=== PATIENT | male | born 1955 | race African-American/Black ===

== ENCOUNTER 2017-01-28 18:27 | Inpatient (IN) | payer MEDICAID ==
[~2017-01-28] VITALS: Ht 188 cm; Wt 75.7 kg
[~2017-01-28 18:27] MED LIST: ACET-2178 PO; ASPIRIN PO; DIAZ10TA4 PO; DOCU-138 PO; HYDR-523 PO; SIMV20TA6 PO
[2017-01-28] MEDS ORDERED: NITROGLYCERIN 0.4MG TABLET SL SL PRN (19:00)
[2017-01-28] MEDS ORDERED: ASPIRIN 81MG TABLET PO ONE (19:00)
[2017-01-28 19:15] LABS: BASOPHILS % 1.3 % (0.0-2.0); EOSINOPHILS % 5.6 % (0.0-5.0); HEMOGLOBIN. 7.2 g/dL (14.0-18.0); INR 2.3; LYMPHOCYTES % 17.8 % (20.0-50.0); MEAN CORPUSCULAR HEMOGLOBIN 20.9 pg (28.0-32.0); MEAN CORPUSCULAR VOLUME 69.4 fL (80.0-94.0); MEAN PLATELET VOLUME 8.9 fl (7.4-10.4); MONOCYTES % 10.1 % (2.0-8.0); NEUTROPHILS % 65.2 % (40.0-76.0); PLATELET 296 x1000/uL (130-400); PROTHROMBIN TIME 24.1 sec (9.4-11.6); RED BLOOD CELL COUNT 3.46 mill/uL (4.7-6.1); RED CELL DISTRIBUTION WIDTH 20.8 % (11.6-14.6)
[2017-01-28 19:25] LABS: CARBON DIOXIDE 23 mEq/L (21-32); CHLORIDE 106 mEq/L (98-107); TROPONIN I 0.05 ng/mL (0.00-0.04)
[2017-01-28 19:37] LABS: *AMPHETAMINES SCREEN URINE NEGATIVE (NEGATIVE); *BARBITURATES SCREEN URINE NEGATIVE (NEGATIVE); *BENZODIAZEPINES SCREEN URINE NEGATIVE (NEGATIVE); *COCAINE SCREEN URINE NEGATIVE (NEGATIVE); CANNABINOID URINE SCREEN PRESUMTIVE POSITIVE (NEGATIVE); METHADONE URINE SCREEN NEGATIVE (NEGATIVE); OPIATES URINE SCREEN NEGATIVE (NEGATIVE); PHENCYCLIDINE URINE SCREEN NEGATIVE (NEGATIVE)
[2017-01-28] MEDS ORDERED: MORPHINE SULFATE 4 MG/ML CPJ (NOT FOR IM USE) IV ONE (20:00)
[2017-01-28 20:08] LABS: PLATELET ESTIMATE NORMAL
[2017-01-28 23:35] VITALS: BP 130/76
[2017-01-29] VITALS (11 sets, daily range): BP systolic 103–139; BP diastolic 58–89
[2017-01-29] MEDS ORDERED: HYDROCODONE/ACETAMINOPHEN 5/325MG TABLET PO PRN (00:30)
[2017-01-29] MEDS: TEMAZEPAM 15MG CAPSULE PO PRN ×2 (00:38→21:19)
[2017-01-29 06:33] LABS: HEMATOCRIT. 26.1 % (42.0-52.0); HEMOGLOBIN. 7.9 g/dL (14.0-18.0); MEAN CORPUSCULAR HEMOGLOBIN 21.4 pg (28.0-32.0); MEAN CORPUSCULAR VOLUME 70.4 fL (80.0-94.0); MEAN PLATELET VOLUME 9.4 fl (7.4-10.4); PLATELET 264 x1000/uL (130-400); RED BLOOD CELL COUNT 3.71 mill/uL (4.7-6.1); RED CELL DISTRIBUTION WIDTH 20.6 % (11.6-14.6)
[2017-01-29] MEDS: PANTOPRAZOLE 40MG DR TABLET PO SCH (06:40)
[2017-01-29 07:45] LABS: CARBON DIOXIDE 24 mEq/L (21-32); CHLORIDE 103 mEq/L (98-107); HDL CHOLESTEROL 52 mg/dL (40-59); LDL CHOLESTEROL 115 mg/dL (5-100)
[2017-01-29 07:48] LABS: TOTAL IRON BINDING CAPACITY 415 ug/dL (250-450)
[2017-01-29 08:17] LABS: VITAMIN B12 SERUM 497 pg/mL (211-911)
[2017-01-29] MEDS: PHYTONADIONE 10MG/ML AMP SUBCUT SCH (09:39)
[2017-01-29] MEDS ORDERED: POTASSIUM CHLORIDE 20MEQ/PACKET PO NR (12:15)
[2017-01-29 16:32] LABS: PLATELET ESTIMATE NORMAL
[2017-01-29] MEDS ORDERED: DIPHENHYDRAMINE 50MG/ML VIAL IV PRN (21:00)
[2017-01-30] VITALS: BP 115/65
[2017-01-30] MEDS ORDERED: ATORVASTATIN CALCIUM 20MG TABLET PO SCH (00:30)
[2017-01-30 06:54] VITALS: BP 118/73
[2017-01-30 08:00] VITALS: BP 110/71
[2017-01-30 08:23] LABS: HEMATOCRIT. 28.6 % (42.0-52.0); HEMOGLOBIN. 8.7 g/dL (14.0-18.0); MEAN CORPUSCULAR HEMOGLOBIN 21.4 pg (28.0-32.0); MEAN CORPUSCULAR VOLUME 70.2 fL (80.0-94.0); MEAN PLATELET VOLUME 9.3 fl (7.4-10.4); PLATELET 269 x1000/uL (130-400); RED BLOOD CELL COUNT 4.08 mill/uL (4.7-6.1); RED CELL DISTRIBUTION WIDTH 20.8 % (11.6-14.6)
[2017-01-30] MEDS: PANTOPRAZOLE 40MG DR TABLET PO SCH (09:41)
[2017-01-30] MEDS: PHYTONADIONE 10MG/ML AMP SUBCUT SCH (09:41)
[2017-01-30 12:00] VITALS: BP 126/87
[2017-01-30 16:00] VITALS: BP 159/96
[2017-01-30 17:17] VITALS: BP 150/90
[2017-01-31 00:25] LABS: PLATELET ESTIMATE NORMAL
[2017-01-31] MEDS ORDERED: FAMOTIDINE 20MG TABLET PO SCH (07:40)
[2017-02-22] MEDS ORDERED: HYDR-4133 PO (22:31)
[2017-02-22] MEDS ORDERED: AMLO2.5T45 PO (22:31)
[2017-02-22] MEDS ORDERED: FURO40TA5 PO (22:31)
[2017-02-22] MEDS ORDERED: ASPI-1159 PO (22:32)
== END 2017-01-30 18:00 | disposition home or self-care (01) | DRG 469 ==
LOC: ER 18:27 → 7WST 20:04 → ENRESERV 22:04
PROVIDERS: ADMIT Internal Medicine; ATTEND Internal Medicine
PROC: 30233N1 Transfusion of Nonautologous Red Blood Cells into Peripheral Vein, Percutaneous Approach (ICD-10-PCS; principal; 2017-01-29)
DX: N17.9 Acute kidney failure, unspecified (principal); D68.9 Coagulation defect, unspecified; I24.9 Acute ischemic heart disease, unspecified; I42.9 Cardiomyopathy, unspecified; I50.9 Heart failure, unspecified; I13.0 Hypertensive heart and chronic kidney disease with heart failure and stage 1 through stage 4 chronic kidney disease, or unspecified chronic kidney disease; D64.9 Anemia, unspecified; F17.200 Nicotine dependence, unspecified, uncomplicated; N18.9 Chronic kidney disease, unspecified; Z95.810 Presence of automatic (implantable) cardiac defibrillator; M94.0 Chondrocostal junction syndrome [Tietze]
CPT/HCPCS: 36415; 71010; 80048; 80053; 80061; 80305; 82270; 82607; 83540; 83550; 83880; 84443; 84484; 85025; 85610; 86850; 86900; 86920; 93005; 96374; 99285; J1200; J2270; J3430; J7030; J7050; P9016

== ENCOUNTER 2017-05-02 01:35 | Emergency (ER) | payer MEDICAID ==
[~2017-05-02] VITALS: Ht 188 cm; Wt 82.0 kg
[~2017-05-02 01:35] MED LIST changes: +AMLO2.5T45 PO; -ASPIRIN PO; +FURO40TA5 PO; +HYDR-4133 PO; -HYDR-523 PO
[2017-05-02] MEDS ORDERED: TRAMADOL 50MG TABLET PO ONE (02:45)
[2017-05-02] MEDS ORDERED: IBUPROFEN 600MG TABLET PO ONE (02:45)
[2017-05-02 02:59] LABS: BASOPHILS % 1.8 % (0.0-2.0); EOSINOPHILS % 4.3 % (0.0-5.0); HEMATOCRIT. 25.3 % (42.0-52.0); HEMOGLOBIN. 7.6 g/dL (14.0-18.0); LYMPHOCYTES % 22.6 % (20.0-50.0); MEAN CORPUSCULAR VOLUME 66.5 fL (80.0-94.0); MEAN PLATELET VOLUME 8.3 fl (7.4-10.4); MONOCYTES % 11.6 % (2.0-8.0); NEUTROPHILS % 59.7 % (40.0-76.0); PLATELET 343 x1000/uL (130-400); RED BLOOD CELL COUNT 3.81 mill/uL (4.7-6.1)
[2017-05-02 03:05] LABS: INR 1.1; PARTIAL THROMBOPLASTIN TIME 28.7 sec (23.4-31.0); PROTHROMBIN TIME 11.1 sec (9.4-11.6)
[2017-05-02 03:11] LABS: CARBON DIOXIDE 28 mEq/L (21-32); CHLORIDE 107 mEq/L (98-107); TROPONIN I 0.05 ng/mL (0.00-0.04)
[2017-05-02 03:46] LABS: PLATELET ESTIMATE NORMAL
[2017-05-02 08:12] VITALS: BP 128/67
== END 2017-05-02 08:33 | disposition home or self-care (01) ==
LOC: ER 01:35
DX: R07.89 Other chest pain (principal); F41.9 Anxiety disorder, unspecified; I11.0 Hypertensive heart disease with heart failure; I50.9 Heart failure, unspecified; I42.9 Cardiomyopathy, unspecified; I25.2 Old myocardial infarction; I48.91 Unspecified atrial fibrillation; E78.5 Hyperlipidemia, unspecified; Z95.0 Presence of cardiac pacemaker
CPT/HCPCS: 36415; 71045; 80053; 83690; 84484; 85025; 85610; 85730; 93005; 99285; Z7610

== ENCOUNTER 2017-05-23 08:47 | Emergency (ER) | payer MEDICAID ==
[~2017-05-23] VITALS: Ht 188 cm; Wt 79.0 kg
[2017-05-23 09:42] LABS: BASOPHILS % 1.4 % (0.0-2.0); EOSINOPHILS % 4.8 % (0.0-5.0); HEMATOCRIT. 31.2 % (42.0-52.0); HEMOGLOBIN. 9.4 g/dL (14.0-18.0); LYMPHOCYTES % 19.4 % (20.0-50.0); MEAN CORPUSCULAR HEMOGLOBIN 21.1 pg (28.0-32.0); MEAN CORPUSCULAR VOLUME 70.3 fL (80.0-94.0); MEAN PLATELET VOLUME 9.3 fl (7.4-10.4); MONOCYTES % 10.3 % (2.0-8.0); NEUTROPHILS % 64.1 % (40.0-76.0); PLATELET 190 x1000/uL (130-400); RED BLOOD CELL COUNT 4.44 mill/uL (4.7-6.1); RED CELL DISTRIBUTION WIDTH 22.5 % (11.6-14.6)
[2017-05-23] MEDS: MORPHINE SULFATE 4 MG/ML CPJ (NOT FOR IM USE) IV STA (09:44)
[2017-05-23] MEDS: SODIUM CHLORIDE 0.9% 500 ML IV ONE (09:45)
[2017-05-23 09:47] LABS: INR 1.1; PROTHROMBIN TIME 11.4 sec (9.4-11.6)
[2017-05-23 09:59] LABS: CARBON DIOXIDE 25 mEq/L (21-32); CHLORIDE 109 mEq/L (98-107); TROPONIN I 0.04 ng/mL (0.00-0.04)
[2017-05-23 10:03] LABS: PLATELET ESTIMATE NORMAL
[2017-05-23] MEDS: SODIUM CHLORIDE 0.9% 1,000 ML IV ONE (11:02)
[2017-05-23] MEDS: ONDANSETRON HCL 4MG/2ML VIAL IV ONE (11:02)
[2017-05-23 11:26] LABS: CLARITY URINE CLEAR (CLEAR); COLOR URINE YELLOW (YELLOW); KETONES URINE NEGATIVE (NEGATIVE); LEUKOCYTE ESTERASE URINE NEGATIVE (NEGATIVE); NITRITE URINE NEGATIVE (NEGATIVE); OCCULT BLOOD URINE NEGATIVE (NEGATIVE); PROTEIN URINE TRACE (NEGATIVE); SPECIFIC GRAVITY URINE 1.024 (1.005-1.030); UROBILINOGEN URINE 0.2 E.U./dL (0.2-1.0)
[2017-05-23 13:18] VITALS: BP 144/91
== END 2017-05-23 13:37 | disposition home or self-care (01) ==
LOC: ER 09:15 → CANBEDREQ 16:13
DX: R42 Dizziness and giddiness (principal); R11.2 Nausea with vomiting, unspecified; F41.9 Anxiety disorder, unspecified; I10 Essential (primary) hypertension; I25.2 Old myocardial infarction; F12.10 Cannabis abuse, uncomplicated
CPT/HCPCS: 36415; 70450; 71045; 80053; 81001; 83690; 84484; 85025; 85610; 87804; 93005; 96361; 96374; 96375; 99285; J2270; J2405; J7030; Z7610

== ENCOUNTER 2018-05-15 17:05 | Inpatient (IN) | payer MEDICAID ==
[~2018-05-15] VITALS: Ht 198.1 cm; Wt 74.8 kg
[~2018-05-15 17:05] MED LIST changes: -AMLO2.5T45 PO; +AMLO5TAB4 MT; -DIAZ10TA4 PO; -DOCU-138 PO; -HYDR-4133 PO; +LOSA25TA3 MT; +NITR0.4T49 SL
[2018-05-15 19:22] LABS: CLARITY URINE CLEAR (CLEAR); COLOR URINE YELLOW (YELLOW); KETONES URINE 1+ (NEGATIVE); LEUKOCYTE ESTERASE URINE 1+ (NEGATIVE); NITRITE URINE NEGATIVE (NEGATIVE); OCCULT BLOOD URINE NEGATIVE (NEGATIVE); PH URINE 5.5 (4.5-8.0); PROTEIN URINE 1+ (NEGATIVE); SPECIFIC GRAVITY URINE 1.036 (1.005-1.030)
[2018-05-15 19:24] LABS: CHLORIDE 110 mEq/L (98-107)
[2018-05-15 19:26] LABS: INR 1.1; PARTIAL THROMBOPLASTIN TIME 27.2 sec (23.4-31.0); PROTHROMBIN TIME 10.7 sec (9.1-11.1)
[2018-05-15 19:30] LABS: ETHANOL BLOOD < 10 mg/dL
[2018-05-15] MEDS ORDERED: IPRATROPIUM/ALBUTEROL 0.5-3(2.5)MG/3ML NEB INH PRN (19:30)
[2018-05-15] MEDS ORDERED: GUAIFENESIN 200MG/10ML SUGAR FREE UDC PO PRN (19:30)
[2018-05-15] MEDS ORDERED: LORAZEPAM 0.5MG TABLET PO PRN (19:30)
[2018-05-15] MEDS ORDERED: CLONIDINE 0.1MG TABLET PO PRN (19:30)
[2018-05-15] MEDS ORDERED: ONDANSETRON HCL 4MG/2ML INJ IV PRN (19:30)
[2018-05-15] MEDS ORDERED: NA PHOS,M-B/NA PHOS,DI-BA ENEMA 118ML PR PRN (19:30)
[2018-05-15] MEDS ORDERED: ACETAMINOPHEN 325MG TABLET PO PRN (19:30)
[2018-05-15] MEDS ORDERED: DIPHENHYDRAMINE 50MG/ML VIAL IV PRN (19:30)
[2018-05-15] MEDS ORDERED: DOCUSATE SODIUM 100MG CAPSULE PO PRN (19:30)
[2018-05-15] MEDS ORDERED: MAGNESIUM/ALUMINUM HYDROXIDE/SIMETHICONE 30ML UDC PO PRN (19:30)
[2018-05-15] MEDS ORDERED: ACETAMINOPHEN 650MG SUPP PR PRN (19:30)
[2018-05-15] MEDS ORDERED: MEDICATION NOT ON FORMULARY EA (Amlodipine Besylate (Norvasc) 1 TAB) MT SCH (19:30)
[2018-05-15] MEDS ORDERED: NITROGLYCERIN 0.4MG TABLET SL SL PRN (19:30)
[2018-05-15 19:31] LABS: *AMPHETAMINES SCREEN URINE NEGATIVE (NEGATIVE); *BARBITURATES SCREEN URINE NEGATIVE (NEGATIVE); *BENZODIAZEPINES SCREEN URINE NEGATIVE (NEGATIVE); *COCAINE SCREEN URINE NEGATIVE (NEGATIVE)
[2018-05-15 19:32] LABS: CANNABINOID URINE SCREEN PRESUMTIVE POSITIVE (NEGATIVE); METHADONE URINE SCREEN NEGATIVE (NEGATIVE); OPIATES URINE SCREEN NEGATIVE (NEGATIVE); PHENCYCLIDINE URINE SCREEN NEGATIVE (NEGATIVE)
[2018-05-15 19:33] LABS: HEMATOCRIT. 35.1 % (42.0-52.0); HEMOGLOBIN. 10.9 g/dL (14.0-18.0); MEAN CORPUSCULAR HEMOGLOBIN 25.2 pg (28.0-32.0); MEAN CORPUSCULAR VOLUME 80.8 fL (80.0-94.0); MEAN PLATELET VOLUME 10.2 fl (7.4-10.4); PLATELET 194 x1000/uL (130-400); RED BLOOD CELL COUNT 4.34 mill/uL (4.7-6.1); RED CELL DISTRIBUTION WIDTH 18.4 % (11.6-14.6); T4 FREE 1.31 ng/dL (0.76-1.46)
[2018-05-15] MEDS ORDERED: FUROSEMIDE 20MG/2ML VIAL IVP ONE (20:00)
[2018-05-15 20:14] LABS: PLATELET ESTIMATE NORMAL
[2018-05-15] MEDS ORDERED: MEDICATION NOT ON FORMULARY EA (Simvastatin 20 MG) PO SCH (21:00)
[2018-05-15 21:30] VITALS: BP 155/95
[2018-05-15] MEDS: CARVEDILOL 3.125 MG TABLET PO SCH (21:38)
[2018-05-15] MEDS: HYDROCODONE/ACETAMINOPHEN 5/325MG TABLET PO PRN (23:08)
[2018-05-16] VITALS: BP 126/92
[2018-05-16 04:00] VITALS: BP 149/98
[2018-05-16 06:40] LABS: HEMATOCRIT. 34.7 % (42.0-52.0); HEMOGLOBIN. 10.9 g/dL (14.0-18.0); MEAN CORPUSCULAR VOLUME 79.6 fL (80.0-94.0); MEAN PLATELET VOLUME 10.3 fl (7.4-10.4); PLATELET 190 x1000/uL (130-400); RED BLOOD CELL COUNT 4.36 mill/uL (4.7-6.1); RED CELL DISTRIBUTION WIDTH 18.2 % (11.6-14.6)
[2018-05-16 07:48] LABS: T4 FREE 1.4 ng/dL (0.76-1.46)
[2018-05-16 07:50] LABS: CREATINE KINASE MB FRACTION 4.7 ng/mL (0.5-3.6)
[2018-05-16 08:00] VITALS: BP 156/103
[2018-05-16] MEDS ORDERED: ENOXAPARIN 40MG/0.4ML SYR SUBCUT SCH (09:00)
[2018-05-16] MEDS: CARVEDILOL 3.125 MG TABLET PO SCH ×2 (09:00→09:03)
[2018-05-16] MEDS ORDERED: AMLODIPINE 5MG TABLET PO SCH (09:00)
[2018-05-16] MEDS: ASPIRIN 81MG EC TABLET PO SCH (09:02)
[2018-05-16] MEDS: HYDROCODONE/ACETAMINOPHEN 5/325MG TABLET PO PRN (10:49)
[2018-05-16] MEDS ORDERED: CLONIDINE 0.2MG TABLET PO PRN (11:00)
[2018-05-16] MEDS ORDERED: CLONIDINE 0.1MG TABLET PO PRN (11:00)
[2018-05-16 12:00] VITALS: BP 144/99
[2018-05-16] MEDS: LOSARTAN POTASSIUM 25 MG TABLET PO SCH ×2 (12:10→20:50)
[2018-05-16] MEDS ORDERED: MORPHINE SULFATE 4 MG/ML CPJ (NOT FOR IM USE) IV NR (13:15)
[2018-05-16 16:00] VITALS: BP 137/96
[2018-05-16] MEDS: ENOXAPARIN 80MG/0.8ML SYR SUBCUT SCH (18:03)
[2018-05-16 19:10] LABS: PLATELET ESTIMATE NORMAL
[2018-05-16 20:00] VITALS: BP 139/92
[2018-05-16] MEDS: ATORVASTATIN CALCIUM 10MG TABLET PO SCH (20:50)
[2018-05-16] MEDS: AMLODIPINE 5MG TABLET PO SCH (20:50)
[2018-05-16] MEDS: CARVEDILOL 6.25 MG TABLET PO SCH (20:51)
[2018-05-16] MEDS: LORAZEPAM 0.5MG TABLET PO PRN (23:30)
[2018-05-17] VITALS: BP 104/84
[2018-05-17 04:30] VITALS: BP 138/90
[2018-05-17] MEDS: ENOXAPARIN 80MG/0.8ML SYR SUBCUT SCH ×2 (06:11→18:10)
[2018-05-17 07:23] LABS: HEMATOCRIT. 36.2 % (42.0-52.0); HEMOGLOBIN. 11.1 g/dL (14.0-18.0); MEAN CORPUSCULAR HEMOGLOBIN 24.7 pg (28.0-32.0); MEAN CORPUSCULAR VOLUME 80.3 fL (80.0-94.0); MEAN PLATELET VOLUME 10.2 fl (7.4-10.4); PLATELET 195 x1000/uL (130-400); RED CELL DISTRIBUTION WIDTH 17.9 % (11.6-14.6)
[2018-05-17 08:00] VITALS: BP 131/104
[2018-05-17 08:00] LABS: CHLORIDE 108 mEq/L (98-107)
[2018-05-17] MEDS: CARVEDILOL 6.25 MG TABLET PO SCH ×2 (08:14→21:08)
[2018-05-17] MEDS: LOSARTAN POTASSIUM 25 MG TABLET PO SCH ×2 (09:05→21:08)
[2018-05-17] MEDS: ASPIRIN 81MG EC TABLET PO SCH (09:06)
[2018-05-17] MEDS: AMLODIPINE 5MG TABLET PO SCH ×2 (09:06→21:07)
[2018-05-17 10:50] LABS: PLATELET ESTIMATE NORMAL
[2018-05-17] MEDS: POTASSIUM CHLORIDE 20MEQ TABLET SR PO SCH ×2 (10:57→18:10)
[2018-05-17] MEDS: FUROSEMIDE 40MG/4ML VIAL IVP SCH ×2 (10:57→18:10)
[2018-05-17 12:00] VITALS: BP 124/100
[2018-05-17] MEDS ORDERED: MORPHINE SULFATE 4 MG/ML CPJ (NOT FOR IM USE) IV NR (14:15)
[2018-05-17 16:00] VITALS: BP 141/97
[2018-05-17 20:00] VITALS: BP_SYST 119; BP_SYST 146; BP_DIAS 94; BP_DIAS 96
[2018-05-17] MEDS: ATORVASTATIN CALCIUM 10MG TABLET PO SCH (21:08)
[2018-05-18] VITALS: BP 124/74
[2018-05-18] MEDS: LORAZEPAM 0.5MG TABLET PO PRN (00:02)
[2018-05-18 04:00] VITALS: BP 108/75
[2018-05-18] MEDS: ENOXAPARIN 80MG/0.8ML SYR SUBCUT SCH ×2 (06:06→18:01)
[2018-05-18] MEDS: FUROSEMIDE 40MG/4ML VIAL IVP SCH (06:06)
[2018-05-18 06:56] LABS: HEMATOCRIT. 38.2 % (42.0-52.0); MEAN CORPUSCULAR VOLUME 79.5 fL (80.0-94.0); MEAN PLATELET VOLUME 10.3 fl (7.4-10.4); PLATELET 216 x1000/uL (130-400); RED BLOOD CELL COUNT 4.81 mill/uL (4.7-6.1); RED CELL DISTRIBUTION WIDTH 17.7 % (11.6-14.6)
[2018-05-18 08:00] VITALS: BP 148/89
[2018-05-18] MEDS: AMLODIPINE 5MG TABLET PO SCH ×2 (08:30→21:09)
[2018-05-18] MEDS: ASPIRIN 81MG EC TABLET PO SCH (08:30)
[2018-05-18] MEDS: LOSARTAN POTASSIUM 25 MG TABLET PO SCH ×2 (08:30→21:00)
[2018-05-18] MEDS: CARVEDILOL 6.25 MG TABLET PO SCH (08:30)
[2018-05-18] MEDS: POTASSIUM CHLORIDE 20MEQ TABLET SR PO SCH ×2 (08:31→18:01)
[2018-05-18 10:00] LABS: PLATELET ESTIMATE NORMAL
[2018-05-18 12:00] VITALS: BP 75/54
[2018-05-18 16:21] VITALS: BP 122/59
[2018-05-18] MEDS ORDERED: HYDRALAZINE 20MG/ML VIAL IV PRN (16:30)
[2018-05-18] MEDS ORDERED: FUROSEMIDE 100MG/10ML VIAL IVP SCH (17:15)
[2018-05-18] MEDS: HYDROCODONE/ACETAMINOPHEN 10/325MG TABLET PO PRN (18:02)
[2018-05-18 20:00] VITALS: BP_SYST 123; BP_SYST 131; BP_SYST 146; BP_DIAS 103; BP_DIAS 104; BP_DIAS 98
[2018-05-18] MEDS ORDERED: CARVEDILOL 3.125 MG TABLET PO SCH (21:00)
[2018-05-18] MEDS: ATORVASTATIN CALCIUM 10MG TABLET PO SCH (21:08)
[2018-05-19] VITALS: BP 128/99
[2018-05-19 04:00] VITALS: BP_SYST 115; BP_SYST 130; BP_SYST 140; BP_DIAS 100; BP_DIAS 85; BP_DIAS 90
[2018-05-19] MEDS: ENOXAPARIN 80MG/0.8ML SYR SUBCUT SCH (06:20)
[2018-05-19 07:10] LABS: HEMATOCRIT. 37.9 % (42.0-52.0); MEAN CORPUSCULAR HEMOGLOBIN 24.9 pg (28.0-32.0); MEAN CORPUSCULAR VOLUME 78.7 fL (80.0-94.0); PLATELET 226 x1000/uL (130-400); RED BLOOD CELL COUNT 4.82 mill/uL (4.7-6.1)
[2018-05-19 08:00] VITALS: BP 148/82
[2018-05-19] MEDS: AMLODIPINE 5MG TABLET PO SCH (08:25)
[2018-05-19] MEDS: POTASSIUM CHLORIDE 20MEQ TABLET SR PO SCH (08:25)
[2018-05-19] MEDS: ASPIRIN 81MG EC TABLET PO SCH (08:25)
[2018-05-19] MEDS: LOSARTAN POTASSIUM 25 MG TABLET PO SCH (08:25)
[2018-05-19] MEDS ORDERED: FUROSEMIDE 20MG TABLET PO SCH (09:00)
[2018-05-19 11:34] LABS: PLATELET ESTIMATE NORMAL
[2018-05-19 12:30] VITALS: BP_SYST 104; BP_SYST 124; BP_SYST 148; BP_DIAS 63; BP_DIAS 83; BP_DIAS 90
[2018-05-19] MEDS: HYDROCODONE/ACETAMINOPHEN 10/325MG TABLET PO PRN (13:58)
[2018-05-19 15:16] VITALS: BP 127/83
[2018-05-19 16:50] LABS: HEMATOCRIT. 39.9 % (42.0-52.0); HEMOGLOBIN. 12.3 g/dL (14.0-18.0); MEAN CORPUSCULAR HEMOGLOBIN 24.6 pg (28.0-32.0); MEAN CORPUSCULAR VOLUME 79.6 fL (80.0-94.0); MEAN PLATELET VOLUME 10.2 fl (7.4-10.4); PLATELET 250 x1000/uL (130-400); RED BLOOD CELL COUNT 5.01 mill/uL (4.7-6.1); RED CELL DISTRIBUTION WIDTH 17.7 % (11.6-14.6)
[2018-05-19 19:56] LABS: PLATELET ESTIMATE NORMAL
== END 2018-05-19 17:15 | disposition home or self-care (01) | DRG 201 ==
LOC: ER 17:05 → EDBEDREQ 17:46 → 8WST 18:30 → ENRESERV 18:32 → EDBEDREQ 18:33
PROVIDERS: ADMIT Internal Medicine; ATTEND Internal Medicine
PROC: 4B02XTZ Measurement of Cardiac Defibrillator, External Approach (ICD-10-PCS; principal; 2018-05-16)
DX: I48.0 Paroxysmal atrial fibrillation (principal); I50.43 Acute on chronic combined systolic (congestive) and diastolic (congestive) heart failure; I42.0 Dilated cardiomyopathy; F11.20 Opioid dependence, uncomplicated; I45.81 Long QT syndrome; K92.2 Gastrointestinal hemorrhage, unspecified; D64.9 Anemia, unspecified; N18.9 Chronic kidney disease, unspecified; I13.0 Hypertensive heart and chronic kidney disease with heart failure and stage 1 through stage 4 chronic kidney disease, or unspecified chronic kidney disease; I49.3 Ventricular premature depolarization; F12.90 Cannabis use, unspecified, uncomplicated; E78.00 Pure hypercholesterolemia, unspecified; E78.5 Hyperlipidemia, unspecified; Z95.810 Presence of automatic (implantable) cardiac defibrillator; Z91.19 Patient's noncompliance with other medical treatment and regimen; I25.2 Old myocardial infarction; Z79.01 Long term (current) use of anticoagulants
CPT/HCPCS: 36415; 71045; 80048; 80061; 80305; 82550; 82553; 83735; 83880; 84439; 84443; 84484; 93005; 93970; 96374; 99291; G0482; J1650; J1940; J2270; J2405

== ENCOUNTER 2018-06-10 06:21 | Inpatient (IN) | payer MEDICAID ==
[~2018-06-10] VITALS: Ht 182.9 cm; Wt 72.4 kg
[2018-06-10] MEDS ORDERED: MORPHINE SULFATE 4 MG/ML CPJ (NOT FOR IM USE) IV ONE (07:30)
[2018-06-10 08:50] LABS: BASOPHILS % 1.4 % (0.0-2.0); EOSINOPHILS % 2.4 % (0.0-5.0); HEMATOCRIT. 33.9 % (42.0-52.0); HEMOGLOBIN. 10.5 g/dL (14.0-18.0); LYMPHOCYTES % 23.7 % (20.0-50.0); MEAN CORPUSCULAR HEMOGLOBIN 24.8 pg (28.0-32.0); MEAN CORPUSCULAR VOLUME 80.2 fL (80.0-94.0); MONOCYTES % 10.7 % (2.0-8.0); NEUTROPHILS % 61.8 % (40.0-76.0); PLATELET 250 x1000/uL (130-400); RED BLOOD CELL COUNT 4.22 mill/uL (4.7-6.1); RED CELL DISTRIBUTION WIDTH 17.4 % (11.6-14.6)
[2018-06-10 08:52] LABS: CHLORIDE 115 mEq/L (98-107)
[2018-06-10 20:00] VITALS: BP 138/101
[2018-06-10] MEDS ORDERED: ACETAMINOPHEN 325MG TABLET PO PRN (20:15)
[2018-06-10] MEDS ORDERED: CLONIDINE 0.1MG TABLET PO PRN (20:15)
[2018-06-10] MEDS ORDERED: HYDROCODONE/ACETAMINOPHEN 5/325MG TABLET PO PRN (20:15)
[2018-06-10] MEDS ORDERED: IPRATROPIUM/ALBUTEROL 0.5-3(2.5)MG/3ML NEB INH PRN (20:15)
[2018-06-10] MEDS: AMLODIPINE 10MG TABLET PO SCH (22:44)
[2018-06-10] MEDS: HYDROCODONE/APAP 7.5/325MG 1 TAB TABLET PO PRN (22:45)
[2018-06-11] VITALS (7 sets, daily range): BP systolic 106–159; BP diastolic 82–105
[2018-06-11] MEDS: AMLODIPINE 10MG TABLET PO SCH (09:31)
[2018-06-11] MEDS: HYDROCODONE/APAP 7.5/325MG 1 TAB TABLET PO PRN (09:35)
[2018-06-11 10:52] LABS: EOSINOPHILS % 1.5 % (0.0-5.0); HEMATOCRIT. 36.2 % (42.0-52.0); HEMOGLOBIN. 11.2 g/dL (14.0-18.0); LYMPHOCYTES % 22.4 % (20.0-50.0); MEAN CORPUSCULAR HEMOGLOBIN 24.8 pg (28.0-32.0); MEAN CORPUSCULAR VOLUME 79.9 fL (80.0-94.0); MONOCYTES % 10.1 % (2.0-8.0); PLATELET 264 x1000/uL (130-400); RED BLOOD CELL COUNT 4.54 mill/uL (4.7-6.1); RED CELL DISTRIBUTION WIDTH 17.7 % (11.6-14.6)
[2018-06-11 11:00] LABS: CHLORIDE 109 mEq/L (98-107)
[2018-06-11 11:13] LABS: T4 FREE 1.34 ng/dL (0.76-1.46)
[2018-06-11 11:17] LABS: HDL CHOLESTEROL 58 mg/dL (40-59)
[2018-06-11 11:20] LABS: LDL CHOLESTEROL 51 mg/dL (5-100)
[2018-06-11 11:21] LABS: CREATINE KINASE 211 IU/L (39-308)
[2018-06-11] MEDS: MAGNESIUM HYDROXIDE 400MG/5ML 30ML UDC PO PRN (12:48)
[2018-06-11] MEDS: ENOXAPARIN 80MG/0.8ML SYR SUBCUT SCH ×2 (14:13→20:34)
[2018-06-11] MEDS: AMIODARONE HCL 200 MG TABLET PO SCH ×2 (14:13→20:35)
[2018-06-11 16:38] LABS: HEPATITIS B SURFACE ANTIGEN NEGATIVE
[2018-06-11 17:08] LABS: HEPATITIS A AB IGM NEGATIVE (NEGATIVE)
[2018-06-11 19:32] LABS: INR 1.1; PROTHROMBIN TIME 11.2 sec (9.1-11.1)
[2018-06-11] MEDS: CARVEDILOL 3.125 MG TABLET PO SCH (20:33)
[2018-06-11] MEDS: LORAZEPAM 1MG TABLET PO PRN (23:27)
[2018-06-12] VITALS (7 sets, daily range): BP systolic 112–146; BP diastolic 74–96
[2018-06-12 06:52] LABS: CHLORIDE 107 mEq/L (98-107)
[2018-06-12] MEDS: ONDANSETRON HCL 4MG/2ML INJ IV PRN ×2 (07:00→16:37)
[2018-06-12 07:07] LABS: HEMATOCRIT. 35.3 % (42.0-52.0); HEMOGLOBIN. 11.1 g/dL (14.0-18.0); MEAN CORPUSCULAR HEMOGLOBIN 25.1 pg (28.0-32.0); MEAN CORPUSCULAR VOLUME 79.9 fL (80.0-94.0); MEAN PLATELET VOLUME 9.5 fl (7.4-10.4); PLATELET 246 x1000/uL (130-400); RED BLOOD CELL COUNT 4.41 mill/uL (4.7-6.1); RED CELL DISTRIBUTION WIDTH 17.4 % (11.6-14.6)
[2018-06-12] MEDS ORDERED: AMLODIPINE 2.5MG TABLET PO SCH (09:00)
[2018-06-12] MEDS: AMIODARONE HCL 200 MG TABLET PO SCH (09:30)
[2018-06-12] MEDS: CARVEDILOL 3.125 MG TABLET PO SCH (09:31)
[2018-06-12] MEDS: ENOXAPARIN 80MG/0.8ML SYR SUBCUT SCH (09:31)
[2018-06-12] MEDS: MAGNESIUM HYDROXIDE 400MG/5ML 30ML UDC PO PRN (09:32)
[2018-06-12 13:09] LABS: PLATELET ESTIMATE NORMAL
[2018-06-12] MEDS: LORAZEPAM 1MG TABLET PO PRN (15:01)
== END 2018-06-12 18:18 | disposition home or self-care (01) | DRG 201 ==
LOC: ER 06:42 → 5WST 09:32 → EDBEDREQTM 09:39 → EDBEDREQ 09:39 → ENRESERV 19:54 → ER 20:25
PROVIDERS: ADMIT Internal Medicine; ATTEND Internal Medicine
PROC: 4B02XTZ Measurement of Cardiac Defibrillator, External Approach (ICD-10-PCS; principal; 2018-06-12)
DX: I49.9 Cardiac arrhythmia, unspecified (principal); I50.43 Acute on chronic combined systolic (congestive) and diastolic (congestive) heart failure; D68.59 Other primary thrombophilia; I42.0 Dilated cardiomyopathy; I48.1 Persistent atrial fibrillation; I48.92 Unspecified atrial flutter; R07.89 Other chest pain; I13.0 Hypertensive heart and chronic kidney disease with heart failure and stage 1 through stage 4 chronic kidney disease, or unspecified chronic kidney disease; E78.5 Hyperlipidemia, unspecified; N18.9 Chronic kidney disease, unspecified; D63.8 Anemia in other chronic diseases classified elsewhere; F12.90 Cannabis use, unspecified, uncomplicated; Z79.01 Long term (current) use of anticoagulants; I25.2 Old myocardial infarction; Z79.899 Other long term (current) drug therapy; Z91.19 Patient's noncompliance with other medical treatment and regimen; Z95.810 Presence of automatic (implantable) cardiac defibrillator; Z53.29 Procedure and treatment not carried out because of patient's decision for other reasons
CPT/HCPCS: 36415; 71045; 76700; 80048; 80061; 82550; 83735; 83880; 84439; 84443; 84484; 86705; 86709; 86803; 87340; 93005; 96374; 99285; J1650; J2270; J2405

== ENCOUNTER 2018-08-05 04:03 | Inpatient (IN) | payer MEDICAID ==
[~2018-08-05] VITALS: Ht 188 cm; Wt 74.8 kg
[~2018-08-05 04:03] MED LIST changes: -NITR0.4T49 SL
[2018-08-05 04:58] LABS: BASOPHILS % 1.5 % (0.0-2.0); CHLORIDE 110 mEq/L (98-107); EOSINOPHILS % 2.8 % (0.0-5.0); HEMATOCRIT. 34.1 % (42.0-52.0); HEMOGLOBIN. 10.3 g/dL (14.0-18.0); LYMPHOCYTES % 30.1 % (20.0-50.0); MEAN CORPUSCULAR HEMOGLOBIN 22.9 pg (28.0-32.0); MEAN CORPUSCULAR VOLUME 75.6 fL (80.0-94.0); MEAN PLATELET VOLUME 8.7 fl (7.4-10.4); MONOCYTES % 12.9 % (2.0-8.0); NEUTROPHILS % 52.7 % (40.0-76.0); PLATELET 236 x1000/uL (130-400); RED BLOOD CELL COUNT 4.51 mill/uL (4.7-6.1); RED CELL DISTRIBUTION WIDTH 18.4 % (11.6-14.6)
[2018-08-05] MEDS ORDERED: INSULIN REGULAR (HUMULIN R) 300UNITS/3ML IV NR (06:00)
[2018-08-05] MEDS ORDERED: ASPIRIN 325MG EC TABLET PO NR (06:00)
[2018-08-05] MEDS ORDERED: SODIUM BICARBONATE 8.4% 1 MEQ/ML 50ML SYR IV NR (06:00)
[2018-08-05] MEDS ORDERED: DEXTROSE 50% WATER 50ML SYRINGE IV NR (06:00)
[2018-08-05] MEDS ORDERED: CALCIUM CHLORIDE 1GM/10ML SYR IV NR (06:00)
[2018-08-05] MEDS ORDERED: ENALAPRIL 2.5MG/2ML VIAL 2ML IV ONE (07:00)
[2018-08-05] MEDS ORDERED: FUROSEMIDE 40MG/4ML VIAL IVP ONE (07:00)
[2018-08-05] MEDS ORDERED: ACETAMINOPHEN 325MG TABLET PO PRN (16:30)
[2018-08-05] MEDS ORDERED: GUAIFENESIN 200MG/10ML SUGAR FREE UDC PO PRN (16:30)
[2018-08-05] MEDS ORDERED: IPRATROPIUM/ALBUTEROL 0.5-3(2.5)MG/3ML NEB INH PRN (16:30)
[2018-08-05] MEDS ORDERED: CLONIDINE 0.1MG TABLET PO PRN (16:30)
[2018-08-05] MEDS ORDERED: ACETAMINOPHEN 650MG SUPP PR PRN (16:30)
[2018-08-05] MEDS ORDERED: NA PHOS,M-B/NA PHOS,DI-BA ENEMA 118ML PR PRN (16:30)
[2018-08-05] MEDS ORDERED: MAGNESIUM/ALUMINUM HYDROXIDE/SIMETHICONE 30ML UDC PO PRN (16:30)
[2018-08-05] MEDS ORDERED: LORAZEPAM 0.5MG TABLET PO PRN (16:30)
[2018-08-05] MEDS ORDERED: DOCUSATE SODIUM 100MG CAPSULE PO PRN (16:30)
[2018-08-05] MEDS ORDERED: ONDANSETRON HCL 4MG/2ML INJ IV PRN (16:30)
[2018-08-05] MEDS ORDERED: DIPHENHYDRAMINE 50MG/ML VIAL IV PRN (16:30)
[2018-08-05] MEDS: AMLODIPINE 5MG TABLET PO SCH (16:55)
[2018-08-05] MEDS: HYDROCODONE/ACETAMINOPHEN 5/325MG TABLET PO PRN ×2 (16:55→21:50)
[2018-08-05] MEDS ORDERED: MORPHINE SULFATE 4 MG/ML CPJ (NOT FOR IM USE) IV PRN (17:00)
[2018-08-05 19:20] VITALS: BP 149/86
[2018-08-05 20:00] VITALS: BP_SYST 126; BP_SYST 149; BP_DIAS 83; BP_DIAS 86
[2018-08-05 20:59] LABS: INR 1.2
[2018-08-05] MEDS ORDERED: MEDICATION NOT ON FORMULARY EA (Simvastatin 20 MG) PO SCH (21:00)
[2018-08-05] MEDS: ATORVASTATIN CALCIUM 10MG TABLET PO SCH (21:49)
[2018-08-05] MEDS: APIXABAN 5 MG TABLET PO SCH (21:49)
[2018-08-05] MEDS: FUROSEMIDE 40MG/4ML VIAL IVP ONE ×2 (21:50→21:51)
[2018-08-05] MEDS ORDERED: DILTIAZEM HCL 30MG TABLET PO SCH (22:00)
[2018-08-05 23:30] LABS: CREATINE KINASE MB FRACTION 13.2 ng/mL (0.5-3.6)
[2018-08-06] VITALS: BP 132/88
[2018-08-06 04:00] VITALS: BP 125/77
[2018-08-06 06:46] LABS: BASOPHILS % 1.4 % (0.0-2.0); EOSINOPHILS % 2.7 % (0.0-5.0); HEMATOCRIT. 32.8 % (42.0-52.0); HEMOGLOBIN. 10.3 g/dL (14.0-18.0); LYMPHOCYTES % 30.6 % (20.0-50.0); MEAN CORPUSCULAR HEMOGLOBIN 23.1 pg (28.0-32.0); MEAN CORPUSCULAR VOLUME 73.5 fL (80.0-94.0); MEAN PLATELET VOLUME 9.3 fl (7.4-10.4); MONOCYTES % 12.1 % (2.0-8.0); NEUTROPHILS % 53.2 % (40.0-76.0); PLATELET 242 x1000/uL (130-400); RED BLOOD CELL COUNT 4.47 mill/uL (4.7-6.1)
[2018-08-06 07:19] LABS: CHLORIDE 106 mEq/L (98-107)
[2018-08-06 07:35] LABS: LDL CHOLESTEROL 48 mg/dL (5-100)
[2018-08-06 07:38] LABS: HDL CHOLESTEROL 56 mg/dL (40-59)
[2018-08-06 07:39] LABS: CREATINE KINASE MB FRACTION 12.7 ng/mL (0.5-3.6)
[2018-08-06 07:48] LABS: CREATINE KINASE 1531 IU/L (39-308)
[2018-08-06 08:00] VITALS: BP 133/92
[2018-08-06] MEDS: APIXABAN 5 MG TABLET PO SCH ×2 (08:32→16:12)
[2018-08-06] MEDS: AMLODIPINE 5MG TABLET PO SCH (08:32)
[2018-08-06] MEDS: ASPIRIN 81MG EC TABLET PO SCH (08:32)
[2018-08-06] MEDS: HYDROCODONE/ACETAMINOPHEN 5/325MG TABLET PO PRN (08:41)
[2018-08-06] MEDS ORDERED: FUROSEMIDE 40MG/4ML VIAL IV SCH (09:00)
[2018-08-06 11:30] VITALS: BP 128/83
[2018-08-06 15:30] VITALS: BP 120/84
[2018-08-06] MEDS: FUROSEMIDE 100MG/10ML VIAL IV SCH (16:12)
[2018-08-06 20:00] VITALS: BP 122/74
[2018-08-06] MEDS: AMIODARONE HCL 200 MG TABLET PO SCH (21:37)
[2018-08-06] MEDS: ATORVASTATIN CALCIUM 10MG TABLET PO SCH (21:37)
[2018-08-07] VITALS (7 sets, daily range): BP systolic 107–132; BP diastolic 62–98
[2018-08-07 07:17] LABS: HEMATOCRIT. 36.8 % (42.0-52.0); HEMOGLOBIN. 11.3 g/dL (14.0-18.0); MEAN CORPUSCULAR HEMOGLOBIN 22.5 pg (28.0-32.0); MEAN CORPUSCULAR VOLUME 73.4 fL (80.0-94.0); MEAN PLATELET VOLUME 9.2 fl (7.4-10.4); PLATELET 277 x1000/uL (130-400); RED BLOOD CELL COUNT 5.01 mill/uL (4.7-6.1); RED CELL DISTRIBUTION WIDTH 18.4 % (11.6-14.6)
[2018-08-07] MEDS: APIXABAN 5 MG TABLET PO SCH (08:26)
[2018-08-07] MEDS: AMIODARONE HCL 200 MG TABLET PO SCH (08:26)
[2018-08-07] MEDS: FUROSEMIDE 100MG/10ML VIAL IV SCH (08:26)
[2018-08-07] MEDS: ASPIRIN 81MG EC TABLET PO SCH (08:26)
[2018-08-07] MEDS: AMLODIPINE 5MG TABLET PO SCH (08:27)
[2018-08-07] MEDS: HYDROCODONE/ACETAMINOPHEN 5/325MG TABLET PO PRN (09:30)
[2018-08-07 10:46] LABS: ATYPICAL LYMPHOCYTES 1
[2018-08-07 10:47] LABS: PLATELET ESTIMATE NORMAL
[2018-08-07 11:30] LABS: CREATINE KINASE MB FRACTION 9.2 ng/mL (0.5-3.6)
== END 2018-08-07 18:20 | disposition home or self-care (01) | DRG 194 ==
LOC: ER 04:35 → 8WST 07:01 → EDBEDREQ 07:10 → EDBEDREQTM 07:10 → ENRESERV 17:26
PROVIDERS: ADMIT Internal Medicine; ATTEND Internal Medicine
DX: I13.0 Hypertensive heart and chronic kidney disease with heart failure and stage 1 through stage 4 chronic kidney disease, or unspecified chronic kidney disease (principal); D68.59 Other primary thrombophilia; E87.8 Other disorders of electrolyte and fluid balance, not elsewhere classified; E87.5 Hyperkalemia; E83.51 Hypocalcemia; I42.0 Dilated cardiomyopathy; I48.1 Persistent atrial fibrillation; I50.43 Acute on chronic combined systolic (congestive) and diastolic (congestive) heart failure; R74.0 Nonspecific elevation of levels of transaminase and lactic acid dehydrogenase [LDH]; M94.0 Chondrocostal junction syndrome [Tietze]; N18.9 Chronic kidney disease, unspecified; E78.5 Hyperlipidemia, unspecified; D64.9 Anemia, unspecified; I49.3 Ventricular premature depolarization; F12.90 Cannabis use, unspecified, uncomplicated; Z91.19 Patient's noncompliance with other medical treatment and regimen; I25.2 Old myocardial infarction; Z95.810 Presence of automatic (implantable) cardiac defibrillator; Z79.899 Other long term (current) drug therapy; Z79.01 Long term (current) use of anticoagulants
CPT/HCPCS: 36415; 71045; 76700; 80048; 80061; 82550; 82553; 82962; 83880; 84484; 93005; 93970; 99285; J1815; J1940; J2270; J3490

== ENCOUNTER 2018-08-21 19:55 | Inpatient (IN) | payer MEDICAID ==
[~2018-08-21] VITALS: Ht 188 cm; Wt 68.5 kg
[2018-08-21 20:28] LABS: HEMATOCRIT. 33.6 % (42.0-52.0); HEMOGLOBIN. 10.3 g/dL (14.0-18.0); MEAN CORPUSCULAR HEMOGLOBIN 22.9 pg (28.0-32.0); MEAN CORPUSCULAR VOLUME 74.6 fL (80.0-94.0); MEAN PLATELET VOLUME 8.2 fl (7.4-10.4); PLATELET 297 x1000/uL (130-400); RED CELL DISTRIBUTION WIDTH 19.2 % (11.6-14.6)
[2018-08-21 20:29] LABS: CHLORIDE 107 mEq/L (98-107)
[2018-08-21 20:31] LABS: PARTIAL THROMBOPLASTIN TIME 26.4 sec (23.4-31.0); PROTHROMBIN TIME 10.1 sec (9.6-11.0)
[2018-08-21 20:32] LABS: ETHANOL BLOOD 50 mg/dL
[2018-08-21 20:55] LABS: PLATELET ESTIMATE NORMAL
[2018-08-21] MEDS ORDERED: ACETAMINOPHEN 325MG TABLET PO ONE (21:15)
[2018-08-21 21:28] LABS: *AMPHETAMINES SCREEN URINE NEGATIVE (NEGATIVE); *BARBITURATES SCREEN URINE NEGATIVE (NEGATIVE); *BENZODIAZEPINES SCREEN URINE NEGATIVE (NEGATIVE); *COCAINE SCREEN URINE NEGATIVE (NEGATIVE)
[2018-08-21 21:29] LABS: CANNABINOID URINE SCREEN PRESUMTIVE POSITIVE (NEGATIVE); METHADONE URINE SCREEN NEGATIVE (NEGATIVE); OPIATES URINE SCREEN PRESUMTIVE POSITIVE (NEGATIVE); PHENCYCLIDINE URINE SCREEN NEGATIVE (NEGATIVE)
[2018-08-21 23:19] VITALS: BP 132/63
[2018-08-21 23:20] VITALS: BP 132/63
[2018-08-21] MEDS ORDERED: IPRATROPIUM/ALBUTEROL 0.5-3(2.5)MG/3ML NEB HHN PRN (23:45)
[2018-08-21] MEDS ORDERED: ACETAMINOPHEN 325MG TABLET PO PRN (23:45)
[2018-08-22] VITALS (15 sets, daily range): BP systolic 103–146; BP diastolic 56–91
[2018-08-22] MEDS: APIXABAN 5 MG TABLET PO SCH ×3 (00:12→16:50)
[2018-08-22 07:02] LABS: CREATINE KINASE MB FRACTION 6.4 ng/mL (0.5-3.6)
[2018-08-22] MEDS: FUROSEMIDE 40MG TABLET PO SCH ×2 (08:06→22:10)
[2018-08-22] MEDS: MORPHINE SULFATE 4 MG/ML CPJ (NOT FOR IM USE) IV PRN (08:09)
[2018-08-22] MEDS: CARVEDILOL 3.125 MG TABLET PO SCH ×2 (08:15→21:00)
[2018-08-22] MEDS ORDERED: LISINOPRIL 10MG TABLET PO SCH (09:00)
[2018-08-22] MEDS ORDERED: ASPIRIN 325MG EC TABLET PO SCH (09:00)
[2018-08-22] MEDS ORDERED: ONDANSETRON HCL 4MG/2ML INJ IV PRN (10:30)
[2018-08-22] MEDS ORDERED: POTASSIUM CHLORIDE 20MEQ TABLET SR PO SCH (11:30)
[2018-08-22] MEDS ORDERED: CLONIDINE 0.1MG TABLET PO PRN (11:30)
[2018-08-22] MEDS: LOSARTAN POTASSIUM 25 MG TABLET PO SCH (12:00)
[2018-08-22] MEDS ORDERED: PNEUMOCOCCAL 23-VAL P-SAC VAC 0.5 ML IM ONE (12:00)
[2018-08-22] MEDS ORDERED: LORAZEPAM 1MG TABLET PO PRN (13:00)
[2018-08-22 19:36] LABS: CREATINE KINASE MB FRACTION 5.1 ng/mL (0.5-3.6)
[2018-08-22] MEDS ORDERED: ATORVASTATIN CALCIUM 40MG TABLET PO SCH (21:00)
[2018-08-22] MEDS: HYDROCODONE/ACETAMINOPHEN 5/325MG TABLET PO PRN (22:17)
[2018-08-23] VITALS (12 sets, daily range): BP systolic 112–152; BP diastolic 46–93
[2018-08-23 07:15] LABS: BASOPHILS % 1.5 % (0.0-2.0); EOSINOPHILS % 2.1 % (0.0-5.0); HEMATOCRIT. 36.3 % (42.0-52.0); LYMPHOCYTES % 35.2 % (20.0-50.0); MEAN CORPUSCULAR HEMOGLOBIN 22.7 pg (28.0-32.0); MEAN CORPUSCULAR VOLUME 75.1 fL (80.0-94.0); MEAN PLATELET VOLUME 8.6 fl (7.4-10.4); MONOCYTES % 13.2 % (2.0-8.0); PLATELET 282 x1000/uL (130-400); RED BLOOD CELL COUNT 4.84 mill/uL (4.7-6.1); RED CELL DISTRIBUTION WIDTH 20.1 % (11.6-14.6)
[2018-08-23] MEDS: APIXABAN 5 MG TABLET PO SCH (08:58)
[2018-08-23] MEDS: LOSARTAN POTASSIUM 25 MG TABLET PO SCH (09:00)
[2018-08-23] MEDS: CARVEDILOL 3.125 MG TABLET PO SCH (09:00)
[2018-08-23] MEDS ORDERED: POTASSIUM CHLORIDE 20MEQ TABLET SR PO SCH (09:00)
[2018-08-23] MEDS ORDERED: ASPIRIN 81MG EC TABLET PO SCH (09:00)
[2018-08-23] MEDS: MORPHINE SULFATE 4 MG/ML CPJ (NOT FOR IM USE) IV PRN (09:49)
[2018-08-23] MEDS: FUROSEMIDE 40MG TABLET PO SCH (11:17)
[2018-08-23] MEDS: HYDROCODONE/ACETAMINOPHEN 5/325MG TABLET PO PRN (12:41)
== END 2018-08-23 14:54 | disposition home or self-care (01) | DRG 203 ==
LOC: ER 19:55 → 3WST 21:03 → EDBEDREQTM 21:16 → EDBEDREQ 21:16 → EDBEDREQSVC 21:16 → ENRESERV 22:14
PROVIDERS: ADMIT Internal Medicine; ATTEND Internal Medicine
DX: M94.0 Chondrocostal junction syndrome [Tietze] (principal); I50.23 Acute on chronic systolic (congestive) heart failure; I42.0 Dilated cardiomyopathy; Z86.74 Personal history of sudden cardiac arrest; I48.1 Persistent atrial fibrillation; I13.0 Hypertensive heart and chronic kidney disease with heart failure and stage 1 through stage 4 chronic kidney disease, or unspecified chronic kidney disease; N18.3 Chronic kidney disease, stage 3 (moderate); D63.8 Anemia in other chronic diseases classified elsewhere; F12.90 Cannabis use, unspecified, uncomplicated; E78.00 Pure hypercholesterolemia, unspecified; I25.10 Atherosclerotic heart disease of native coronary artery without angina pectoris; I48.2 Chronic atrial fibrillation; Z95.810 Presence of automatic (implantable) cardiac defibrillator
CPT/HCPCS: 36415; 71045; 80048; 80305; 80320; 82550; 82553; 83735; 83880; 84443; 84484; 85379; 93005; 93970; 99285; J2270; G0480

== ENCOUNTER 2018-09-23 03:54 | Inpatient (IN) | payer MEDICAID ==
[~2018-09-23] VITALS: Ht 188 cm; Wt 73.9 kg
[2018-09-23] MEDS ORDERED: SODIUM CHLORIDE 0.9% 1,000 ML IV ONE (04:45)
[2018-09-23] MEDS ORDERED: FAMOTIDINE 20MG/2ML VIAL IV STA (04:45)
[2018-09-23] MEDS ORDERED: MAGNESIUM/ALUMINUM HYDROXIDE/SIMETHICONE 30ML UDC PO STA (04:45)
[2018-09-23] MEDS ORDERED: ONDANSETRON HCL 4MG/2ML INJ IV ONE (05:00)
[2018-09-23] MEDS ORDERED: MORPHINE SULFATE 4 MG/ML CPJ (NOT FOR IM USE) IV ONE (05:00)
[2018-09-23 05:03] LABS: HEMATOCRIT. 34.6 % (42.0-52.0); HEMOGLOBIN. 10.7 g/dL (14.0-18.0); MEAN CORPUSCULAR HEMOGLOBIN 23.3 pg (28.0-32.0); MEAN CORPUSCULAR VOLUME 75.4 fL (80.0-94.0); MEAN PLATELET VOLUME 8.3 fl (7.4-10.4); PLATELET 245 x1000/uL (130-400); RED BLOOD CELL COUNT 4.58 mill/uL (4.7-6.1); RED CELL DISTRIBUTION WIDTH 20.5 % (11.6-14.6)
[2018-09-23 05:07] LABS: CHLORIDE 109 mEq/L (98-107)
[2018-09-23 05:23] LABS: INR 1.1; PROTHROMBIN TIME 10.9 sec (9.6-11.0)
[2018-09-23 05:37] LABS: ATYPICAL LYMPHOCYTES 1; PLATELET ESTIMATE NORMAL
[2018-09-23 08:40] VITALS: BP 150/83
[2018-09-23 08:45] VITALS: BP 150/83
[2018-09-23] MEDS ORDERED: MEDICATION NOT ON FORMULARY EA (Acetaminophen (Tylenol) 650 MG) PO PRN (09:45)
[2018-09-23] MEDS ORDERED: ASPI-1159 PO (09:55)
[2018-09-23] MEDS: FUROSEMIDE 40MG TABLET PO SCH ×2 (10:00→12:19)
[2018-09-23] MEDS: AMLODIPINE 5MG TABLET PO SCH ×2 (10:00→12:20)
[2018-09-23] MEDS: ASPIRIN 81MG TABLET PO SCH ×3 (10:00→17:26)
[2018-09-23] MEDS ORDERED: ACETAMINOPHEN 325MG TABLET PO PRN (10:00)
[2018-09-23] MEDS: PANTOPRAZOLE 40MG DR TABLET PO SCH ×3 (10:00→17:26)
[2018-09-23] MEDS: LOSARTAN POTASSIUM 25 MG TABLET PO SCH ×3 (10:00→17:26)
[2018-09-23 12:00] VITALS: BP 137/82
[2018-09-23] MEDS ORDERED: LACTULOSE 20G/30ML UDC PO SCH (13:00)
[2018-09-23 15:30] LABS: CREATINE KINASE MB FRACTION 11.8 ng/mL (0.5-3.6)
[2018-09-23 16:00] VITALS: BP 168/99
[2018-09-23 20:40] VITALS: BP 129/68
[2018-09-23] MEDS ORDERED: MEDICATION NOT ON FORMULARY EA (Simvastatin 20 MG) PO SCH (21:00)
[2018-09-23] MEDS ORDERED: ATROPINE SULFATE 1MG/ML VIAL IV PRN (21:00)
[2018-09-23] MEDS ORDERED: ATORVASTATIN CALCIUM 10MG TABLET PO SCH (21:00)
[2018-09-24] VITALS (7 sets, daily range): BP systolic 136–163; BP diastolic 89–105
[2018-09-24 00:07] LABS: CREATINE KINASE MB FRACTION 10.6 ng/mL (0.5-3.6)
[2018-09-24 01:23] LABS: CLARITY URINE CLEAR (CLEAR); COLOR URINE YELLOW (YELLOW); KETONES URINE TRACE (NEGATIVE); LEUKOCYTE ESTERASE URINE NEGATIVE (NEGATIVE); NITRITE URINE NEGATIVE (NEGATIVE); OCCULT BLOOD URINE NEGATIVE (NEGATIVE); PH URINE 5.5 (4.5-8.0); PROTEIN URINE 1+ (NEGATIVE); SPECIFIC GRAVITY URINE 1.027 (1.005-1.030)
[2018-09-24 01:36] LABS: METHADONE URINE SCREEN NEGATIVE (NEGATIVE); OPIATES URINE SCREEN PRESUMTIVE POSITIVE (NEGATIVE)
[2018-09-24 01:37] LABS: *BARBITURATES SCREEN URINE NEGATIVE (NEGATIVE); *BENZODIAZEPINES SCREEN URINE NEGATIVE (NEGATIVE); *COCAINE SCREEN URINE NEGATIVE (NEGATIVE); CANNABINOID URINE SCREEN PRESUMTIVE POSITIVE (NEGATIVE); PHENCYCLIDINE URINE SCREEN NEGATIVE (NEGATIVE)
[2018-09-24 01:38] LABS: *AMPHETAMINES SCREEN URINE NEGATIVE (NEGATIVE)
[2018-09-24] MEDS: PANTOPRAZOLE 40MG DR TABLET PO SCH (06:20)
[2018-09-24 07:02] LABS: HEMATOCRIT. 33.5 % (42.0-52.0); HEMOGLOBIN. 10.3 g/dL (14.0-18.0); MEAN CORPUSCULAR HEMOGLOBIN 23.1 pg (28.0-32.0); MEAN CORPUSCULAR VOLUME 75.4 fL (80.0-94.0); MEAN PLATELET VOLUME 8.9 fl (7.4-10.4); PLATELET 214 x1000/uL (130-400); RED BLOOD CELL COUNT 4.44 mill/uL (4.7-6.1); RED CELL DISTRIBUTION WIDTH 20.2 % (11.6-14.6)
[2018-09-24 07:41] LABS: CREATINE KINASE MB FRACTION 8.7 ng/mL (0.5-3.6)
[2018-09-24] MEDS ORDERED: MEDICATION NOT ON FORMULARY EA (Furosemide 40 MG) PO SCH (09:00)
[2018-09-24] MEDS ORDERED: MEDICATION NOT ON FORMULARY EA (Amlodipine Besylate (Norvasc) 1 TAB) MT SCH (09:00)
[2018-09-24] MEDS ORDERED: MEDICATION NOT ON FORMULARY EA (Losartan Potassium (Cozaar) 1 TAB) MT SCH (09:00)
[2018-09-24] MEDS: AMLODIPINE 5MG TABLET PO SCH (09:11)
[2018-09-24] MEDS: LOSARTAN POTASSIUM 25 MG TABLET PO SCH (09:12)
[2018-09-24] MEDS: FUROSEMIDE 40MG TABLET PO SCH (09:12)
[2018-09-24] MEDS: ASPIRIN 81MG TABLET PO SCH (09:12)
[2018-09-24] MEDS ORDERED: MORPHINE SULFATE 2 MG/ML CPJ (NOT FOR IM USE) IV NR (11:15)
[2018-09-24] MEDS: LACTULOSE 20G/30ML UDC PO NR ×2 (14:58→16:04)
[2018-09-24] MEDS ORDERED: APIXABAN 5 MG TABLET PO SCH (17:00)
[2018-09-24 17:57] LABS: PLATELET ESTIMATE NORMAL
[2018-09-24] MEDS ORDERED: AMLODIPINE 5MG TABLET PO SCH (21:00)
== END 2018-09-24 18:46 | disposition home or self-care (01) | DRG 254 ==
LOC: ER 03:54 → 6WST 05:47 → ENRESERV 07:12 → CANRESERV 07:12 → ENRESERV 07:38 → 6WST 08:49
PROVIDERS: ADMIT Internal Medicine; ATTEND Internal Medicine
DX: K59.00 Constipation, unspecified (principal); I50.43 Acute on chronic combined systolic (congestive) and diastolic (congestive) heart failure; D68.59 Other primary thrombophilia; I42.0 Dilated cardiomyopathy; I48.1 Persistent atrial fibrillation; Z86.74 Personal history of sudden cardiac arrest; D64.9 Anemia, unspecified; M94.0 Chondrocostal junction syndrome [Tietze]; I13.0 Hypertensive heart and chronic kidney disease with heart failure and stage 1 through stage 4 chronic kidney disease, or unspecified chronic kidney disease; I48.2 Chronic atrial fibrillation; R74.8 Abnormal levels of other serum enzymes; N18.9 Chronic kidney disease, unspecified; I25.10 Atherosclerotic heart disease of native coronary artery without angina pectoris; F17.200 Nicotine dependence, unspecified, uncomplicated; R00.1 Bradycardia, unspecified; E78.5 Hyperlipidemia, unspecified; D72.819 Decreased white blood cell count, unspecified; Z91.19 Patient's noncompliance with other medical treatment and regimen; Z79.01 Long term (current) use of anticoagulants; I25.2 Old myocardial infarction; Z95.810 Presence of automatic (implantable) cardiac defibrillator; Z79.899 Other long term (current) drug therapy
CPT/HCPCS: 36415; 71045; 74176; 76705; 80048; 80305; 82550; 82553; 84484; 93005; 96374; 96375; 99285; J2270; J2405; J3490; J7030

== ENCOUNTER 2018-10-06 23:36 | Inpatient (IN) | payer MEDICAID ==
[~2018-10-06] VITALS: Ht 188 cm; Wt 62.1 kg
[2018-10-07] VITALS (7 sets, daily range): BP systolic 123–148; BP diastolic 53–110
[2018-10-07] MEDS ORDERED: ONDANSETRON HCL 4MG/2ML INJ IV STA (00:36)
[2018-10-07] MEDS ORDERED: MORPHINE SULFATE 4 MG/ML CPJ (NOT FOR IM USE) IV STA (00:36)
[2018-10-07] MEDS ORDERED: NITROGLYCERIN OINT 1GM/INCH UDPKT TD ONE (00:45)
[2018-10-07 01:06] LABS: HEMATOCRIT. 32.1 % (42.0-52.0); HEMOGLOBIN. 9.8 g/dL (14.0-18.0); MEAN CORPUSCULAR HEMOGLOBIN 23.1 pg (28.0-32.0); MEAN CORPUSCULAR VOLUME 75.9 fL (80.0-94.0); MEAN PLATELET VOLUME 7.9 fl (7.4-10.4); PLATELET 212 x1000/uL (130-400); RED BLOOD CELL COUNT 4.23 mill/uL (4.7-6.1); RED CELL DISTRIBUTION WIDTH 20.7 % (11.6-14.6)
[2018-10-07 01:12] LABS: CHLORIDE 113 mEq/L (98-107)
[2018-10-07 01:35] LABS: ATYPICAL LYMPHOCYTES 1; PLATELET ESTIMATE NORMAL
[2018-10-07] MEDS ORDERED: ENOXAPARIN 40MG/0.4ML SYR SUBCUT SCH (13:00)
[2018-10-07] MEDS ORDERED: IPRATROPIUM/ALBUTEROL 0.5-3(2.5)MG/3ML NEB INH PRN (13:00)
[2018-10-07] MEDS ORDERED: ONDANSETRON HCL 4MG/2ML INJ IV PRN (13:00)
[2018-10-07] MEDS ORDERED: ACETAMINOPHEN 650MG/20.3ML UDC GT PRN (13:00)
[2018-10-07] MEDS: HYDROCODONE/ACETAMINOPHEN 5/325MG TABLET PO PRN ×2 (14:23→21:36)
[2018-10-07] MEDS: LOSARTAN POTASSIUM 25 MG TABLET PO SCH (15:45)
[2018-10-07 15:51] LABS: *AMPHETAMINES SCREEN URINE NEGATIVE (NEGATIVE); *BARBITURATES SCREEN URINE NEGATIVE (NEGATIVE); *BENZODIAZEPINES SCREEN URINE NEGATIVE (NEGATIVE); *COCAINE SCREEN URINE NEGATIVE (NEGATIVE)
[2018-10-07 15:52] LABS: CANNABINOID URINE SCREEN PRESUMTIVE POSITIVE (NEGATIVE); METHADONE URINE SCREEN NEGATIVE (NEGATIVE); OPIATES URINE SCREEN PRESUMTIVE POSITIVE (NEGATIVE); PHENCYCLIDINE URINE SCREEN NEGATIVE (NEGATIVE)
[2018-10-07] MEDS: APIXABAN 5 MG TABLET PO SCH (16:17)
[2018-10-07 16:41] LABS: CREATINE KINASE MB FRACTION 8.2 ng/mL (0.5-3.6)
[2018-10-07] MEDS: CARVEDILOL 6.25 MG TABLET PO SCH (21:00)
[2018-10-08] VITALS (10 sets, daily range): BP systolic 123–154; BP diastolic 63–103
[2018-10-08 00:16] LABS: CREATINE KINASE MB FRACTION 6.8 ng/mL (0.5-3.6)
[2018-10-08 06:20] LABS: HEMATOCRIT. 35.8 % (42.0-52.0); HEMOGLOBIN. 10.8 g/dL (14.0-18.0); MEAN PLATELET VOLUME 9.2 fl (7.4-10.4); PLATELET 251 x1000/uL (130-400); RED BLOOD CELL COUNT 4.71 mill/uL (4.7-6.1); RED CELL DISTRIBUTION WIDTH 21.2 % (11.6-14.6)
[2018-10-08 07:25] LABS: CHLORIDE 108 mEq/L (98-107)
[2018-10-08 07:35] LABS: LDL CHOLESTEROL 41 mg/dL (5-100)
[2018-10-08 07:36] LABS: HDL CHOLESTEROL 91 mg/dL (40-59); T4 FREE 1.45 ng/dL (0.76-1.46)
[2018-10-08] MEDS: CARVEDILOL 6.25 MG TABLET PO SCH (09:00)
[2018-10-08] MEDS: LOSARTAN POTASSIUM 25 MG TABLET PO SCH (09:02)
[2018-10-08] MEDS: APIXABAN 5 MG TABLET PO SCH (09:02)
[2018-10-08] MEDS ORDERED: LACTULOSE 20G/30ML UDC PO NR (11:30)
[2018-10-08] MEDS ORDERED: MORPHINE SULFATE 2 MG/ML CPJ (NOT FOR IM USE) IV NR (11:30)
[2018-10-08] MEDS ORDERED: FUROSEMIDE 40MG TABLET PO SCH (13:15)
[2018-10-08 16:25] LABS: PLATELET ESTIMATE NORMAL
== END 2018-10-08 17:59 | disposition home or self-care (01) | DRG 203 ==
LOC: ER 23:36 → 5EST 10-07 03:29 → EDBEDREQ 10-07 03:31 → EDBEDREQTM 10-07 03:31 → EDBEDREQSVC 10-07 06:59 → ENRESERV 10-07 07:40 → CANRESERV 10-07 07:40 → EDBEDREQSVC 10-07 07:56 → ENRESERV 10-07 08:09 → 5EST 10-07 11:29
PROVIDERS: ADMIT Ophthalmology; ATTEND Ophthalmology
DX: R07.89 Other chest pain (principal); I42.0 Dilated cardiomyopathy; I50.9 Heart failure, unspecified; I11.0 Hypertensive heart disease with heart failure; K59.00 Constipation, unspecified; I48.1 Persistent atrial fibrillation; Z79.899 Other long term (current) drug therapy; Z95.810 Presence of automatic (implantable) cardiac defibrillator; Z79.01 Long term (current) use of anticoagulants
CPT/HCPCS: 36415; 71045; 80061; 80305; 82550; 82553; 83880; 84439; 84443; 84484; 93005; 99285; J1650; J2270; J2405; J7620

== ENCOUNTER 2018-11-20 00:52 | Inpatient (IN) | payer MEDICAID ==
[~2018-11-20] VITALS: Ht 188 cm; Wt 71.2 kg
[~2018-11-20 00:52] MED LIST changes: -AMLO5TAB4 MT; +AMLO5TAB4 PO; -LOSA25TA3 MT; +LOSA25TA3 PO
[2018-11-20] MEDS ORDERED: ONDANSETRON HCL 4MG/2ML INJ IV STA (01:11)
[2018-11-20] MEDS ORDERED: MORPHINE SULFATE 4 MG/ML CPJ (NOT FOR IM USE) IV STA (01:11)
[2018-11-20 01:26] LABS: HEMATOCRIT. 32.9 % (42.0-52.0); HEMOGLOBIN. 10.1 g/dL (14.0-18.0); MEAN CORPUSCULAR HEMOGLOBIN 23.4 pg (28.0-32.0); MEAN CORPUSCULAR VOLUME 76.3 fL (80.0-94.0); MEAN PLATELET VOLUME 7.9 fl (7.4-10.4); PLATELET 214 x1000/uL (130-400); RED BLOOD CELL COUNT 4.31 mill/uL (4.7-6.1); RED CELL DISTRIBUTION WIDTH 19.4 % (11.6-14.6)
[2018-11-20 01:32] LABS: CHLORIDE 111 mEq/L (98-107)
[2018-11-20] MEDS: NITROGLYCERIN 0.4MG TABLET SL SL PRN ×2 (01:48→02:17)
[2018-11-20 01:56] LABS: PLATELET ESTIMATE NORMAL
[2018-11-20] MEDS ORDERED: KETOROLAC 30MG/ML VIAL IV ONE (02:30)
[2018-11-20 06:15] VITALS: BP 135/93
[2018-11-20] MEDS ORDERED: ZOLP10TA2 PO (07:13)
[2018-11-20 08:13] VITALS: BP 134/80
[2018-11-20 08:24] VITALS: BP 134/80
[2018-11-20] MEDS ORDERED: NITROGLYCERIN 0.4MG TABLET SL SL PRN (08:45)
[2018-11-20] MEDS ORDERED: ENOXAPARIN 40MG/0.4ML SYR SUBCUT SCH (09:00)
[2018-11-20] MEDS ORDERED: ASPIRIN 81MG TABLET PO NR (09:00)
[2018-11-20] MEDS: LOSARTAN POTASSIUM 50 MG TABLET PO SCH (09:18)
[2018-11-20] MEDS: CARVEDILOL 3.125 MG TABLET PO SCH ×2 (09:18→21:08)
[2018-11-20] MEDS: MORPHINE SULFATE 2 MG/ML CPJ (NOT FOR IM USE) IV PRN (09:20)
[2018-11-20 12:25] VITALS: BP 130/78
[2018-11-20 13:26] LABS: CREATINE KINASE MB FRACTION 5.9 ng/mL (0.5-3.6)
[2018-11-20] MEDS ORDERED: DIPHENHYDRAMINE 50MG/ML VIAL IV PRN (14:15)
[2018-11-20] MEDS: FUROSEMIDE 40MG TABLET PO SCH (14:40)
[2018-11-20 16:30] VITALS: BP 124/82
[2018-11-20] MEDS ORDERED: APIXABAN 5 MG TABLET PO SCH (17:00)
[2018-11-20] MEDS: APIXABAN 5 MG TABLET PO SCH (17:03)
[2018-11-20 18:21] LABS: INR 1.1; PROTHROMBIN TIME 11.2 sec (9.6-11.0)
[2018-11-20 18:35] LABS: CREATINE KINASE MB FRACTION 6.1 ng/mL (0.5-3.6)
[2018-11-20 20:00] VITALS: BP 132/76
[2018-11-20] MEDS ORDERED: ONDANSETRON HCL 4MG/2ML INJ IV PRN (20:00)
[2018-11-20] MEDS ORDERED: ATORVASTATIN CALCIUM 20MG TABLET PO SCH (21:00)
[2018-11-20 21:35] LABS: *AMPHETAMINES SCREEN URINE NEGATIVE (NEGATIVE); *BARBITURATES SCREEN URINE NEGATIVE (NEGATIVE); *BENZODIAZEPINES SCREEN URINE NEGATIVE (NEGATIVE); *COCAINE SCREEN URINE NEGATIVE (NEGATIVE); CANNABINOID URINE SCREEN PRESUMTIVE POSITIVE (NEGATIVE); METHADONE URINE SCREEN NEGATIVE (NEGATIVE); OPIATES URINE SCREEN PRESUMTIVE POSITIVE (NEGATIVE); PHENCYCLIDINE URINE SCREEN NEGATIVE (NEGATIVE)
[2018-11-21] VITALS: BP 128/80
[2018-11-21] MEDS ORDERED: LACTULOSE 20G/30ML UDC PO NR (00:15)
[2018-11-21 01:52] LABS: CREATINE KINASE MB FRACTION 5.1 ng/mL (0.5-3.6)
[2018-11-21 04:00] VITALS: BP 137/92
[2018-11-21] MEDS: MORPHINE SULFATE 2 MG/ML CPJ (NOT FOR IM USE) IV PRN ×2 (06:26→14:30)
[2018-11-21 08:14] VITALS: BP 130/96
[2018-11-21 08:17] LABS: HEMATOCRIT 34.1 % (42.0-52.0); HEMOGLOBIN 10.5 g/dL (14.0-18.0); MEAN CORPUSCULAR HEMOGLOBIN 23.5 pg (28.0-32.0); MEAN CORPUSCULAR VOLUME 76.7 fL (80.0-94.0); PLATELET 223 x1000/uL (130-400); RED BLOOD CELL COUNT 4.44 mill/uL (4.7-6.1); RED CELL DISTRIBUTION WIDTH 19.9 % (11.6-14.6)
[2018-11-21] MEDS: LOSARTAN POTASSIUM 50 MG TABLET PO SCH (08:21)
[2018-11-21] MEDS: FUROSEMIDE 40MG TABLET PO SCH (08:21)
[2018-11-21] MEDS: CARVEDILOL 3.125 MG TABLET PO SCH (08:21)
[2018-11-21] MEDS: APIXABAN 5 MG TABLET PO SCH ×2 (08:26→16:52)
[2018-11-21] MEDS ORDERED: ASPIRIN 81MG TABLET PO SCH (09:00)
[2018-11-21] MEDS ORDERED: LACTULOSE 20G/30ML UDC PO PRN (09:00)
[2018-11-21] MEDS ORDERED: HYDROCODONE/ACETAMINOPHEN 5/325MG TABLET PO SCH (11:45)
[2018-11-21 12:30] VITALS: BP 128/94
[2018-11-21 12:36] LABS: CLARITY URINE CLEAR (CLEAR); COLOR URINE YELLOW (YELLOW); KETONES URINE TRACE (NEGATIVE); LEUKOCYTE ESTERASE URINE NEGATIVE (NEGATIVE); NITRITE URINE NEGATIVE (NEGATIVE); OCCULT BLOOD URINE NEGATIVE (NEGATIVE); PROTEIN URINE NEGATIVE (NEGATIVE); SPECIFIC GRAVITY URINE 1.017 (1.005-1.030); UROBILINOGEN URINE 0.2 E.U./dL (0.2-1.0)
[2018-11-21 14:49] LABS: CLARITY URINE TURBID (CLEAR); COLOR URINE YELLOW (YELLOW); KETONES URINE NEGATIVE (NEGATIVE); LEUKOCYTE ESTERASE URINE NEGATIVE (NEGATIVE); NITRITE URINE NEGATIVE (NEGATIVE); OCCULT BLOOD URINE NEGATIVE (NEGATIVE); PH URINE 5.5 (4.5-8.0); PROTEIN URINE 1+ (NEGATIVE); SPECIFIC GRAVITY URINE 1.029 (1.005-1.030); UROBILINOGEN URINE 0.2 E.U./dL (0.2-1.0)
[2018-11-21 15:29] VITALS: BP 138/82
[2018-11-21 15:36] VITALS: BP 138/82
== END 2018-11-21 17:15 | disposition home or self-care (01) | DRG 194 ==
LOC: ER 00:52 → 6WST 03:22 → ENRESERV 04:07
PROVIDERS: ADMIT Internal Medicine; ATTEND Internal Medicine
DX: I13.0 Hypertensive heart and chronic kidney disease with heart failure and stage 1 through stage 4 chronic kidney disease, or unspecified chronic kidney disease (principal); D68.59 Other primary thrombophilia; I31.3 Pericardial effusion (noninflammatory); F11.20 Opioid dependence, uncomplicated; G62.9 Polyneuropathy, unspecified; M94.0 Chondrocostal junction syndrome [Tietze]; I50.43 Acute on chronic combined systolic (congestive) and diastolic (congestive) heart failure; I48.1 Persistent atrial fibrillation; I42.0 Dilated cardiomyopathy; I20.9 Angina pectoris, unspecified; I25.2 Old myocardial infarction; N18.9 Chronic kidney disease, unspecified; D64.9 Anemia, unspecified; D72.819 Decreased white blood cell count, unspecified; G89.29 Other chronic pain; I34.0 Nonrheumatic mitral (valve) insufficiency; Z95.810 Presence of automatic (implantable) cardiac defibrillator; Z91.19 Patient's noncompliance with other medical treatment and regimen; Z79.01 Long term (current) use of anticoagulants; Z82.49 Family history of ischemic heart disease and other diseases of the circulatory system; Z79.899 Other long term (current) drug therapy
CPT/HCPCS: 36415; 71045; 80048; 80305; 82550; 82553; 83880; 84484; 85027; 93005; 93306; 93880; 96374; 96375; 96376; 99285; J1650; J1885; J2270; J2405

== ENCOUNTER 2018-11-25 06:40 | Inpatient (IN) | payer MEDICAID ==
[~2018-11-25] VITALS: Ht 188 cm; Wt 70.8 kg
[~2018-11-25 06:40] MED LIST changes: +ZOLP10TA2 PO
[2018-11-25] MEDS ORDERED: MORPHINE SULFATE 4 MG/ML CPJ (NOT FOR IM USE) IV ONE (08:00)
[2018-11-25 08:20] LABS: CHLORIDE 104 mEq/L (98-107)
[2018-11-25 08:25] LABS: HEMATOCRIT. 33.6 % (42.0-52.0); HEMOGLOBIN. 10.3 g/dL (14.0-18.0); MEAN CORPUSCULAR HEMOGLOBIN 23.4 pg (28.0-32.0); MEAN PLATELET VOLUME 8.9 fl (7.4-10.4); PLATELET 211 x1000/uL (130-400); RED BLOOD CELL COUNT 4.42 mill/uL (4.7-6.1); RED CELL DISTRIBUTION WIDTH 19.2 % (11.6-14.6)
[2018-11-25 09:49] LABS: PLATELET ESTIMATE NORMAL
[2018-11-25 12:00] VITALS: BP 128/96
[2018-11-25 12:19] VITALS: BP 128/96
[2018-11-25] MEDS ORDERED: DOCUSATE SODIUM 100MG CAPSULE PO PRN (13:00)
[2018-11-25] MEDS ORDERED: FUROSEMIDE 40MG TABLET PO SCH (13:00)
[2018-11-25] MEDS ORDERED: HYDROCODONE/ACETAMINOPHEN 5/325MG TABLET PO PRN (13:00)
[2018-11-25] MEDS ORDERED: MAGNESIUM/ALUMINUM HYDROXIDE/SIMETHICONE 30ML UDC PO PRN (13:00)
[2018-11-25] MEDS ORDERED: ONDANSETRON HCL 4MG/2ML INJ IV PRN (13:00)
[2018-11-25] MEDS ORDERED: CLONIDINE 0.1MG TABLET PO PRN (13:00)
[2018-11-25] MEDS ORDERED: GUAIFENESIN 200MG/10ML SUGAR FREE UDC PO PRN (13:00)
[2018-11-25] MEDS ORDERED: NA PHOS,M-B/NA PHOS,DI-BA ENEMA 118ML PR PRN (13:00)
[2018-11-25] MEDS ORDERED: DIPHENHYDRAMINE 50MG/ML VIAL IV PRN (13:00)
[2018-11-25] MEDS ORDERED: LOSARTAN POTASSIUM 25 MG TABLET PO SCH (13:00)
[2018-11-25] MEDS ORDERED: ACETAMINOPHEN 650MG SUPP PR PRN (13:00)
[2018-11-25] MEDS ORDERED: AMLODIPINE 5MG TABLET PO SCH (13:00)
[2018-11-25] MEDS ORDERED: ACETAMINOPHEN 325MG TABLET PO PRN (13:00)
[2018-11-25] MEDS ORDERED: IPRATROPIUM/ALBUTEROL 0.5-3(2.5)MG/3ML NEB INH PRN (13:00)
[2018-11-25] MEDS ORDERED: LORAZEPAM 0.5MG TABLET PO PRN (13:00)
[2018-11-25 14:45] LABS: CREATINE KINASE MB FRACTION 6.1 ng/mL (0.5-3.6)
[2018-11-25] MEDS ORDERED: FAMOTIDINE 20MG TABLET PO NR (15:45)
[2018-11-25 15:48] VITALS: BP 114/53
[2018-11-25] MEDS: GABAPENTIN 100MG CAPSULE PO SCH ×2 (16:19→18:29)
[2018-11-25] MEDS ORDERED: APIXABAN 5 MG TABLET PO SCH (17:00)
[2018-11-25 17:59] VITALS: BP 133/85
[2018-11-25 20:15] VITALS: BP 124/97
[2018-11-25] MEDS ORDERED: ATORVASTATIN CALCIUM 20MG TABLET PO SCH (21:00)
[2018-11-25] MEDS ORDERED: ZOLPIDEM TARTRATE 5MG TABLET PO PRN (21:00)
[2018-11-26] MEDS ORDERED: FAMOTIDINE 20MG TABLET PO SCH (09:00)
[2018-11-26] MEDS ORDERED: ASPIRIN 81MG EC TABLET PO SCH (09:00)
== END 2018-11-25 20:17 | disposition home or self-care (01) | DRG 243 ==
LOC: ER 06:40 → 6WST 10:33 → EDBEDREQ 10:37 → ENRESERV 11:09
PROVIDERS: ADMIT Internal Medicine; ATTEND Internal Medicine
DX: K21.9 Gastro-esophageal reflux disease without esophagitis (principal); I50.43 Acute on chronic combined systolic (congestive) and diastolic (congestive) heart failure; D68.59 Other primary thrombophilia; F11.20 Opioid dependence, uncomplicated; I48.91 Unspecified atrial fibrillation; M94.0 Chondrocostal junction syndrome [Tietze]; I13.0 Hypertensive heart and chronic kidney disease with heart failure and stage 1 through stage 4 chronic kidney disease, or unspecified chronic kidney disease; E78.00 Pure hypercholesterolemia, unspecified; N18.9 Chronic kidney disease, unspecified; D64.9 Anemia, unspecified; D72.819 Decreased white blood cell count, unspecified; G89.29 Other chronic pain; Z79.899 Other long term (current) drug therapy; Z95.810 Presence of automatic (implantable) cardiac defibrillator; I25.2 Old myocardial infarction; Z91.19 Patient's noncompliance with other medical treatment and regimen; I20.9 Angina pectoris, unspecified; Z95.0 Presence of cardiac pacemaker
CPT/HCPCS: 36415; 71045; 82550; 82553; 83880; 84484; 93005; 99285; J2270

== ENCOUNTER 2018-12-22 22:45 | Inpatient (IN) | payer MEDICAID ==
[~2018-12-22] VITALS: Ht 188 cm; Wt 75.7 kg
[2018-12-22] MEDS ORDERED: MORPHINE SULFATE 4 MG/ML CPJ (NOT FOR IM USE) IV STA (23:17)
[2018-12-22] MEDS ORDERED: METOPROLOL TARTRATE 5MG/5ML VIAL IV STA (23:17)
[2018-12-22] MEDS ORDERED: ONDANSETRON HCL 4MG/2ML INJ IV STA (23:17)
[2018-12-22] MEDS ORDERED: NITROGLYCERIN OINT 1GM/INCH UDPKT TD ONE (23:30)
[2018-12-22 23:46] LABS: HEMATOCRIT. 37.4 % (42.0-52.0); HEMOGLOBIN. 11.5 g/dL (14.0-18.0); MEAN CORPUSCULAR HEMOGLOBIN 22.8 pg (28.0-32.0); MEAN CORPUSCULAR VOLUME 73.9 fL (80.0-94.0); MEAN PLATELET VOLUME 9.2 fl (7.4-10.4); PLATELET 255 x1000/uL (130-400); RED BLOOD CELL COUNT 5.06 mill/uL (4.7-6.1); RED CELL DISTRIBUTION WIDTH 18.5 % (11.6-14.6)
[2018-12-22 23:48] LABS: CHLORIDE 106 mEq/L (98-107)
[2018-12-23 00:33] LABS: *AMPHETAMINES SCREEN URINE NEGATIVE (NEGATIVE); *BARBITURATES SCREEN URINE NEGATIVE (NEGATIVE); *BENZODIAZEPINES SCREEN URINE NEGATIVE (NEGATIVE); *COCAINE SCREEN URINE NEGATIVE (NEGATIVE); METHADONE URINE SCREEN NEGATIVE (NEGATIVE); OPIATES URINE SCREEN PRESUMTIVE POSITIVE (NEGATIVE)
[2018-12-23 00:34] LABS: CANNABINOID URINE SCREEN PRESUMTIVE POSITIVE (NEGATIVE); PHENCYCLIDINE URINE SCREEN NEGATIVE (NEGATIVE)
[2018-12-23 01:55] LABS: PLATELET ESTIMATE NORMAL
[2018-12-23 08:00] VITALS: BP_SYST 121; BP_SYST 135; BP_DIAS 63; BP_DIAS 83
[2018-12-23] MEDS ORDERED: ACETAMINOPHEN 325MG TABLET PO PRN (08:45)
[2018-12-23] MEDS ORDERED: CARVEDILOL 6.25 MG TABLET PO SCH (09:00)
[2018-12-23] MEDS: TRAMADOL 50MG TABLET PO PRN (09:02)
[2018-12-23] MEDS: GABAPENTIN 100MG CAPSULE PO SCH ×2 (11:06→16:00)
[2018-12-23] MEDS: LOSARTAN POTASSIUM 25 MG TABLET PO SCH (11:07)
[2018-12-23] MEDS: ASPIRIN 81MG TABLET PO SCH (11:07)
[2018-12-23] MEDS: FUROSEMIDE 40MG TABLET PO SCH (11:07)
[2018-12-23] MEDS ORDERED: DILTIAZEM HCL 60MG TABLET PO ONE (11:30)
[2018-12-23] MEDS ORDERED: DILTIAZEM HCL 5MG/ML 5ML VIAL IV NR (11:45)
[2018-12-23 12:00] VITALS: BP 110/70
[2018-12-23] MEDS: DILTIAZEM HCL 60MG TABLET PO SCH ×2 (13:43→21:09)
[2018-12-23 18:08] LABS: HEMATOCRIT. 33.1 % (42.0-52.0); HEMOGLOBIN. 10.2 g/dL (14.0-18.0); MEAN CORPUSCULAR HEMOGLOBIN 22.7 pg (28.0-32.0); MEAN CORPUSCULAR VOLUME 73.5 fL (80.0-94.0); MEAN PLATELET VOLUME 9.3 fl (7.4-10.4); PLATELET 234 x1000/uL (130-400); RED CELL DISTRIBUTION WIDTH 18.6 % (11.6-14.6)
[2018-12-23 18:14] LABS: CHLORIDE 106 mEq/L (98-107)
[2018-12-23] MEDS ORDERED: GABA-529 PO (18:36)
[2018-12-23] MEDS ORDERED: ASPI-1160 MT (18:36)
[2018-12-23 18:42] LABS: HEPATITIS B SURFACE ANTIGEN NEGATIVE
[2018-12-23 19:12] LABS: HEPATITIS A AB IGM NEGATIVE (NEGATIVE)
[2018-12-23 19:16] LABS: PLATELET ESTIMATE NORMAL
[2018-12-23 20:00] VITALS: BP 119/81
[2018-12-23] MEDS: CARVEDILOL 3.125 MG TABLET PO SCH (21:09)
[2018-12-23] MEDS: FAMOTIDINE 20MG TABLET PO SCH (21:14)
[2018-12-24] VITALS: BP 89/62
[2018-12-24 04:00] VITALS: BP 118/82
[2018-12-24] MEDS: DILTIAZEM HCL 60MG TABLET PO SCH ×3 (04:00→21:26)
[2018-12-24] MEDS: TRAMADOL 50MG TABLET PO PRN ×2 (04:27→21:25)
[2018-12-24 05:51] LABS: HEMATOCRIT. 31.3 % (42.0-52.0); HEMOGLOBIN. 9.7 g/dL (14.0-18.0); MEAN CORPUSCULAR HEMOGLOBIN 22.8 pg (28.0-32.0); MEAN CORPUSCULAR VOLUME 73.6 fL (80.0-94.0); MEAN PLATELET VOLUME 9.4 fl (7.4-10.4); PLATELET 210 x1000/uL (130-400); RED BLOOD CELL COUNT 4.25 mill/uL (4.7-6.1); RED CELL DISTRIBUTION WIDTH 18.6 % (11.6-14.6)
[2018-12-24] MEDS ORDERED: NITROGLYCERIN OINT 1GM/INCH UDPKT TD SCH (06:00)
[2018-12-24 08:00] VITALS: BP 119/90
[2018-12-24] MEDS: GABAPENTIN 100MG CAPSULE PO SCH ×2 (08:11→16:46)
[2018-12-24] MEDS: LOSARTAN POTASSIUM 25 MG TABLET PO SCH (08:12)
[2018-12-24] MEDS: ASPIRIN 81MG TABLET PO SCH (08:12)
[2018-12-24] MEDS: CARVEDILOL 3.125 MG TABLET PO SCH ×2 (08:12→21:27)
[2018-12-24] MEDS: FUROSEMIDE 40MG TABLET PO SCH (08:18)
[2018-12-24 09:43] LABS: CREATINE KINASE MB FRACTION 11.7 ng/mL (0.5-3.6)
[2018-12-24 11:12] LABS: PLATELET ESTIMATE NORMAL
[2018-12-24 12:00] VITALS: BP 98/80
[2018-12-24] MEDS ORDERED: IPRATROPIUM/ALBUTEROL 0.5-3(2.5)MG/3ML NEB HHN PRN (12:45)
[2018-12-24] MEDS ORDERED: CLONIDINE 0.1MG TABLET PO PRN (12:45)
[2018-12-24] MEDS ORDERED: DIPHENHYDRAMINE 50MG/ML VIAL IV PRN (12:45)
[2018-12-24] MEDS ORDERED: ONDANSETRON HCL 4MG/2ML INJ IV PRN (12:45)
[2018-12-24] MEDS ORDERED: HYDROCODONE/ACETAMINOPHEN 5/325MG TABLET PO PRN (12:45)
[2018-12-24 16:40] VITALS: BP 98/75
[2018-12-24] MEDS: APIXABAN 5 MG TABLET PO SCH (16:45)
[2018-12-24] MEDS: NITROGLYCERIN OINT 1GM/INCH UDPKT TD SCH (16:47)
[2018-12-24 20:00] VITALS: BP 121/79
[2018-12-24] MEDS: FAMOTIDINE 20MG TABLET PO SCH (21:30)
[2018-12-24] MEDS: LACTULOSE 20G/30ML UDC PO PRN (22:28)
[2018-12-25] VITALS: BP 104/71
[2018-12-25 04:00] VITALS: BP 121/80
[2018-12-25] MEDS: DILTIAZEM HCL 60MG TABLET PO SCH ×2 (06:44→12:00)
[2018-12-25] MEDS: NITROGLYCERIN OINT 1GM/INCH UDPKT TD SCH (06:50)
[2018-12-25] MEDS: LACTULOSE 20G/30ML UDC PO PRN (09:50)
[2018-12-25] MEDS: LOSARTAN POTASSIUM 25 MG TABLET PO SCH (09:51)
[2018-12-25] MEDS: ASPIRIN 81MG TABLET PO SCH (09:51)
[2018-12-25] MEDS: FUROSEMIDE 40MG TABLET PO SCH (09:51)
[2018-12-25] MEDS: APIXABAN 5 MG TABLET PO SCH (09:51)
[2018-12-25] MEDS: GABAPENTIN 100MG CAPSULE PO SCH (09:51)
[2018-12-25] MEDS: CARVEDILOL 3.125 MG TABLET PO SCH (09:51)
[2018-12-25 11:12] VITALS: BP 124/94
[2018-12-25 11:15] VITALS: BP 124/94
== END 2018-12-25 15:00 | disposition home or self-care (01) | DRG 201 ==
LOC: ER 22:45 → 8WST 12-23 03:30 → EDBEDREQDT 12-23 03:35 → EDBEDREQTM 12-23 03:35 → EDBEDREQ 12-23 03:35 → ENRESERV 12-23 05:12
PROVIDERS: ADMIT Internal Medicine; ATTEND Internal Medicine
DX: I48.1 Persistent atrial fibrillation (principal); I50.43 Acute on chronic combined systolic (congestive) and diastolic (congestive) heart failure; D68.59 Other primary thrombophilia; I31.3 Pericardial effusion (noninflammatory); I13.0 Hypertensive heart and chronic kidney disease with heart failure and stage 1 through stage 4 chronic kidney disease, or unspecified chronic kidney disease; I95.9 Hypotension, unspecified; F11.20 Opioid dependence, uncomplicated; I42.0 Dilated cardiomyopathy; Z79.01 Long term (current) use of anticoagulants; N18.9 Chronic kidney disease, unspecified; D72.819 Decreased white blood cell count, unspecified; I20.9 Angina pectoris, unspecified; D64.9 Anemia, unspecified; G89.29 Other chronic pain; I34.0 Nonrheumatic mitral (valve) insufficiency; M94.0 Chondrocostal junction syndrome [Tietze]; E78.5 Hyperlipidemia, unspecified; K81.9 Cholecystitis, unspecified; Z79.899 Other long term (current) drug therapy; Z79.1 Long term (current) use of non-steroidal anti-inflammatories (NSAID); Z95.810 Presence of automatic (implantable) cardiac defibrillator; I25.2 Old myocardial infarction
CPT/HCPCS: 36415; 71045; 76705; 78227; 80048; 80305; 82550; 82553; 83735; 83880; 84443; 84484; 86705; 86709; 86803; 87340; 93005; 93970; 99291; A9537; J2270; J2405; J3490

== ENCOUNTER 2019-01-14 02:22 | Emergency (ER) | payer MEDICAID ==
[~2019-01-14] VITALS: Ht 180.3 cm; Wt 68.0 kg
[~2019-01-14 02:22] MED LIST changes: +ASPI-1160 MT; +GABA-529 PO
[2019-01-14] MEDS ORDERED: ASPIRIN 81MG TABLET PO ONE (03:00)
[2019-01-14] MEDS ORDERED: NITROGLYCERIN OINT 1GM/INCH UDPKT TD ONE (03:00)
[2019-01-14 03:19] LABS: HEMATOCRIT. 32.4 % (42.0-52.0); HEMOGLOBIN. 9.9 g/dL (14.0-18.0); MEAN CORPUSCULAR HEMOGLOBIN 22.5 pg (28.0-32.0); MEAN CORPUSCULAR VOLUME 73.8 fL (80.0-94.0); MEAN PLATELET VOLUME 8.3 fl (7.4-10.4); PLATELET 264 x1000/uL (130-400); RED CELL DISTRIBUTION WIDTH 19.3 % (11.6-14.6)
[2019-01-14 03:20] LABS: CHLORIDE 110 mEq/L (98-107)
[2019-01-14 06:35] VITALS: BP 141/97
[2019-01-14 07:00] LABS: PLATELET ESTIMATE NORMAL
== END 2019-01-14 06:59 | disposition home or self-care (01) ==
LOC: ER 03:20 → CANBEDREQ 07:10
DX: R07.89 Other chest pain (principal); I11.0 Hypertensive heart disease with heart failure; I50.9 Heart failure, unspecified; I48.91 Unspecified atrial fibrillation; F12.10 Cannabis abuse, uncomplicated; I25.2 Old myocardial infarction; Z95.0 Presence of cardiac pacemaker; Z79.899 Other long term (current) drug therapy
CPT/HCPCS: 36415; 71045; 80053; 83880; 84484; 85025; 93005; 99284; Z7610

== ENCOUNTER 2019-12-20 17:56 | Inpatient (IN) | payer MEDICAID ==
[~2019-12-20] VITALS: Ht 182.9 cm; Wt 70.5 kg
[2019-12-20 10:50] VITALS: BP 164/80
[~2019-12-20 17:56] MED LIST changes: -ACET-2178 PO; +ALBU90AE INH; +APIX5TAB MT; +DILT60TA35 MT; +LEVO500T2 PO; +SIMV-43 PO; -SIMV20TA6 PO; +TOPUD PO
[2019-12-20 18:43] LABS: CHLORIDE 111 mEq/L (98-107)
[2019-12-20 18:47] LABS: ETHANOL BLOOD < 10 mg/dL
[2019-12-20 18:57] LABS: BASOPHILS % 1.3 % (0.0-2.0); EOSINOPHILS % 2.3 % (0.0-5.0); HEMATOCRIT. 29.8 % (42.0-52.0); HEMOGLOBIN. 8.9 g/dL (14.0-18.0); LYMPHOCYTES % 29.1 % (20.0-50.0); MEAN CORPUSCULAR HEMOGLOBIN 19.8 pg (28.0-32.0); MEAN CORPUSCULAR VOLUME 66.5 fL (80.0-94.0); MEAN PLATELET VOLUME 8.9 fl (7.4-10.4); NEUTROPHILS % 58.3 % (40.0-76.0); PLATELET 286 x1000/uL (130-400); RED BLOOD CELL COUNT 4.48 mill/uL (4.7-6.1); RED CELL DISTRIBUTION WIDTH 19.3 % (11.6-14.6)
[2019-12-20] MEDS ORDERED: FUROSEMIDE 40MG/4ML VIAL IVP ONE (19:30)
[2019-12-20 20:42] LABS: CLARITY URINE CLEAR (CLEAR); COLOR URINE YELLOW (YELLOW); KETONES URINE NEGATIVE (NEGATIVE); LEUKOCYTE ESTERASE URINE NEGATIVE (NEGATIVE); NITRITE URINE NEGATIVE (NEGATIVE); OCCULT BLOOD URINE NEGATIVE (NEGATIVE); PROTEIN URINE NEGATIVE (NEGATIVE); SPECIFIC GRAVITY URINE 1.012 (1.005-1.030); UROBILINOGEN URINE 0.2 E.U./dL (0.2-1.0)
[2019-12-20 21:01] LABS: *AMPHETAMINES SCREEN URINE NEGATIVE (NEGATIVE); *BARBITURATES SCREEN URINE NEGATIVE (NEGATIVE); *BENZODIAZEPINES SCREEN URINE NEGATIVE (NEGATIVE); *COCAINE SCREEN URINE NEGATIVE (NEGATIVE); METHADONE URINE SCREEN NEGATIVE (NEGATIVE); OPIATES URINE SCREEN NEGATIVE (NEGATIVE)
[2019-12-20 21:02] LABS: CANNABINOID URINE SCREEN NEGATIVE (NEGATIVE); PHENCYCLIDINE URINE SCREEN NEGATIVE (NEGATIVE)
[2019-12-20 21:34] LABS: PLATELET ESTIMATE NORMAL
[2019-12-20 22:50] VITALS: BP 164/80
[2019-12-21] VITALS: BP 101/66
[2019-12-21] MEDS ORDERED: CLONIDINE 0.2MG TABLET PO PRN (01:45)
[2019-12-21 04:00] VITALS: BP 134/80
[2019-12-21 06:52] LABS: BASOPHILS % 1.5 % (0.0-2.0); EOSINOPHILS % 1.4 % (0.0-5.0); HEMATOCRIT. 31.5 % (42.0-52.0); HEMOGLOBIN. 9.3 g/dL (14.0-18.0); LYMPHOCYTES % 21.2 % (20.0-50.0); MEAN CORPUSCULAR HEMOGLOBIN 19.6 pg (28.0-32.0); MEAN CORPUSCULAR VOLUME 66.3 fL (80.0-94.0); MONOCYTES % 8.8 % (2.0-8.0); NEUTROPHILS % 67.1 % (40.0-76.0); PLATELET 300 x1000/uL (130-400); RED BLOOD CELL COUNT 4.75 mill/uL (4.7-6.1); RED CELL DISTRIBUTION WIDTH 19.7 % (11.6-14.6)
[2019-12-21 07:09] LABS: CHLORIDE 108 mEq/L (98-107)
[2019-12-21 07:19] LABS: LDL CHOLESTEROL 40 mg/dL (5-100)
[2019-12-21 07:21] LABS: HDL CHOLESTEROL 49 mg/dL (40-59)
[2019-12-21 08:00] VITALS: BP 148/95
[2019-12-21] MEDS ORDERED: ENOXAPARIN 40MG/0.4ML SYR SUBCUT SCH (09:00)
[2019-12-21] MEDS ORDERED: LOSARTAN POTASSIUM 25 MG TABLET PO SCH (09:00)
[2019-12-21] MEDS ORDERED: ASPIRIN 81MG TABLET PO SCH (09:00)
[2019-12-21] MEDS ORDERED: CARVEDILOL 3.125 MG TABLET PO SCH (09:00)
[2019-12-21] MEDS: PANTOPRAZOLE SODIUM 40 MG/VIAL IV SCH (09:33)
[2019-12-21 12:00] VITALS: BP 121/91
[2019-12-21 16:00] VITALS: BP 145/58
[2019-12-21] MEDS: FUROSEMIDE 40MG/4ML VIAL IVP SCH (17:50)
[2019-12-21 20:00] VITALS: BP 127/76
[2019-12-21] MEDS: CARVEDILOL 6.25 MG TABLET PO SCH (21:00)
[2019-12-21] MEDS: APIXABAN 5 MG TABLET PO SCH (21:21)
[2019-12-21] MEDS: ATORVASTATIN CALCIUM 40MG TABLET PO SCH (21:21)
[2019-12-21] MEDS: LOSARTAN POTASSIUM 50 MG TABLET PO SCH (21:22)
[2019-12-21] MEDS: HYDROCODONE/ACETAMINOPHEN 5/325MG TABLET PO PRN (22:50)
[2019-12-22] VITALS: BP 130/88
[2019-12-22 04:00] VITALS: BP 130/87
[2019-12-22] MEDS: HYDROCODONE/ACETAMINOPHEN 5/325MG TABLET PO PRN (04:54)
[2019-12-22] MEDS: FUROSEMIDE 40MG/4ML VIAL IVP SCH ×2 (07:33→16:57)
[2019-12-22 08:00] VITALS: BP 134/77
[2019-12-22] MEDS: PANTOPRAZOLE SODIUM 40 MG/VIAL IV SCH (09:06)
[2019-12-22] MEDS: APIXABAN 5 MG TABLET PO SCH ×2 (09:06→21:24)
[2019-12-22] MEDS: LOSARTAN POTASSIUM 50 MG TABLET PO SCH ×3 (09:07→21:24)
[2019-12-22] MEDS: CARVEDILOL 6.25 MG TABLET PO SCH (09:07)
[2019-12-22] MEDS ORDERED: ONDANSETRON HCL 4MG/2ML INJ IV PRN (09:15)
[2019-12-22 11:13] LABS: HEMATOCRIT. 35.3 % (42.0-52.0); HEMOGLOBIN. 10.6 g/dL (14.0-18.0); MEAN CORPUSCULAR HEMOGLOBIN 19.9 pg (28.0-32.0); MEAN CORPUSCULAR VOLUME 66.6 fL (80.0-94.0); MEAN PLATELET VOLUME 8.8 fl (7.4-10.4); PLATELET 322 x1000/uL (130-400); RED BLOOD CELL COUNT 5.31 mill/uL (4.7-6.1); RED CELL DISTRIBUTION WIDTH 19.6 % (11.6-14.6)
[2019-12-22 12:00] VITALS: BP 110/60
[2019-12-22] MEDS ORDERED: LACTULOSE 20G/30ML UDC PO PRN (15:15)
[2019-12-22] MEDS ORDERED: DIPHENHYDRAMINE 50MG/ML VIAL IV PRN (15:15)
[2019-12-22] MEDS ORDERED: HYDRALAZINE 20MG/ML VIAL IV PRN (15:15)
[2019-12-22] MEDS ORDERED: ACETAMINOPHEN 650MG SUPP PR PRN (15:15)
[2019-12-22] MEDS ORDERED: ACETAMINOPHEN 325MG TABLET PO PRN (15:15)
[2019-12-22] MEDS ORDERED: IPRATROPIUM/ALBUTEROL 0.5-3(2.5)MG/3ML NEB HHN PRN (15:15)
[2019-12-22] MEDS ORDERED: LORAZEPAM 2MG/ML CPJ IV PRN (15:15)
[2019-12-22 16:00] VITALS: BP 100/61
[2019-12-22 20:00] VITALS: BP 100/67
[2019-12-22 21:11] LABS: PLATELET ESTIMATE NORMAL
[2019-12-22] MEDS: ATORVASTATIN CALCIUM 40MG TABLET PO SCH (21:24)
[2019-12-22] MEDS: CARVEDILOL 12.5MG TABLET PO SCH (21:27)
[2019-12-23] VITALS (7 sets, daily range): BP systolic 110–129; BP diastolic 66–90
[2019-12-23 05:19] LABS: BASOPHILS % 1.2 % (0.0-2.0); EOSINOPHILS % 2.7 % (0.0-5.0); HEMATOCRIT. 35.2 % (42.0-52.0); HEMOGLOBIN. 10.5 g/dL (14.0-18.0); LYMPHOCYTES % 32.7 % (20.0-50.0); MEAN CORPUSCULAR HEMOGLOBIN 19.9 pg (28.0-32.0); MEAN PLATELET VOLUME 8.9 fl (7.4-10.4); MONOCYTES % 12.7 % (2.0-8.0); NEUTROPHILS % 50.7 % (40.0-76.0); PLATELET 317 x1000/uL (130-400); RED BLOOD CELL COUNT 5.26 mill/uL (4.7-6.1); RED CELL DISTRIBUTION WIDTH 19.7 % (11.6-14.6)
[2019-12-23] MEDS: FUROSEMIDE 40MG/4ML VIAL IVP SCH ×2 (06:43→17:15)
[2019-12-23] MEDS: APIXABAN 5 MG TABLET PO SCH (08:43)
[2019-12-23] MEDS: CARVEDILOL 12.5MG TABLET PO SCH (08:43)
[2019-12-23] MEDS: LOSARTAN POTASSIUM 50 MG TABLET PO SCH (08:43)
[2019-12-23] MEDS ORDERED: FAMOTIDINE 20MG TABLET PO SCH (09:00)
== END 2019-12-23 21:25 | DRG 194 ==
LOC: ER 17:56 → MICUSO 19:08 → EDBEDREQTM 19:46 → EDBEDREQ 19:46 → ENRESERV 21:21 → 8WST 22:56
PROVIDERS: ADMIT Internal Medicine; ATTEND Internal Medicine
PROC: 4B02XTZ Measurement of Cardiac Defibrillator, External Approach (ICD-10-PCS; principal; 2019-12-23)
DX: I13.0 Hypertensive heart and chronic kidney disease with heart failure and stage 1 through stage 4 chronic kidney disease, or unspecified chronic kidney disease (principal); R07.9 Chest pain, unspecified; M94.0 Chondrocostal junction syndrome [Tietze]; N17.9 Acute kidney failure, unspecified; N18.9 Chronic kidney disease, unspecified; D64.9 Anemia, unspecified; I48.20 Chronic atrial fibrillation, unspecified; I42.0 Dilated cardiomyopathy; E87.8 Other disorders of electrolyte and fluid balance, not elsewhere classified; E78.5 Hyperlipidemia, unspecified; D68.59 Other primary thrombophilia; D72.819 Decreased white blood cell count, unspecified; F11.20 Opioid dependence, uncomplicated; Z20.828 Contact with and (suspected) exposure to other viral communicable diseases; I50.43 Acute on chronic combined systolic (congestive) and diastolic (congestive) heart failure; I34.0 Nonrheumatic mitral (valve) insufficiency; Z95.810 Presence of automatic (implantable) cardiac defibrillator; Z79.2 Long term (current) use of antibiotics; Z79.1 Long term (current) use of non-steroidal anti-inflammatories (NSAID); Z79.899 Other long term (current) drug therapy; Z79.01 Long term (current) use of anticoagulants; I69.354 Hemiplegia and hemiparesis following cerebral infarction affecting left non-dominant side; I25.2 Old myocardial infarction; Z91.19 Patient's noncompliance with other medical treatment and regimen
CPT/HCPCS: 36415; 71045; 73030; 80048; 80053; 80061; 80305; 80320; 81003; 83880; 84443; 84484; 85025; 87635; 93005; 96374; 99291; C9113; J1650; J1940; J2405; G0480

== ENCOUNTER 2020-02-07 16:26 | Inpatient (IN) | payer MEDICAID ==
[~2020-02-07] VITALS: Ht 185.4 cm; Wt 67.4 kg
[~2020-02-07 16:26] MED LIST changes: -LOSA25TA3 PO
[2020-02-07] MEDS ORDERED: SODIUM CHLORIDE 0.9% 1,000 ML IV ONE (16:45)
[2020-02-07] MEDS ORDERED: MAGNESIUM CITRATE 300ML SOLUTION PO ONE (16:45)
[2020-02-07] MEDS ORDERED: ASPIRIN 81MG TABLET PO ONE (16:45)
[2020-02-07 17:50] LABS: BASOPHILS % 1.8 % (0.0-2.0); EOSINOPHILS % 2.5 % (0.0-5.0); HEMATOCRIT. 36.2 % (42.0-52.0); HEMOGLOBIN. 10.8 g/dL (14.0-18.0); MEAN CORPUSCULAR HEMOGLOBIN 20.1 pg (28.0-32.0); MEAN CORPUSCULAR VOLUME 67.5 fL (80.0-94.0); MEAN PLATELET VOLUME 9.1 fl (7.4-10.4); MONOCYTES % 13.4 % (2.0-8.0); NEUTROPHILS % 44.3 % (40.0-76.0); PLATELET 243 x1000/uL (130-400); RED BLOOD CELL COUNT 5.37 mill/uL (4.7-6.1); RED CELL DISTRIBUTION WIDTH 21.7 % (11.6-14.6)
[2020-02-07 17:57] LABS: CHLORIDE 111 mEq/L (98-107)
[2020-02-07 18:00] LABS: ETHANOL BLOOD < 10 mg/dL
[2020-02-07 18:31] LABS: PLATELET ESTIMATE NORMAL
[2020-02-07] MEDS ORDERED: FUROSEMIDE 40MG TABLET PO ONE (21:00)
[2020-02-07 21:59] LABS: *AMPHETAMINES SCREEN URINE NEGATIVE (NEGATIVE); *BARBITURATES SCREEN URINE NEGATIVE (NEGATIVE); CANNABINOID URINE SCREEN PRESUMTIVE POSITIVE (NEGATIVE); PHENCYCLIDINE URINE SCREEN NEGATIVE (NEGATIVE)
[2020-02-07 22:00] VITALS: BP 129/98
[2020-02-07 22:00] LABS: *BENZODIAZEPINES SCREEN URINE NEGATIVE (NEGATIVE); *COCAINE SCREEN URINE NEGATIVE (NEGATIVE); METHADONE URINE SCREEN NEGATIVE (NEGATIVE); OPIATES URINE SCREEN PRESUMTIVE POSITIVE (NEGATIVE)
[2020-02-07] MEDS ORDERED: ONDANSETRON HCL 4MG/2ML INJ IV PRN (22:30)
[2020-02-07] MEDS ORDERED: MAGNESIUM/ALUMINUM HYDROXIDE/SIMETHICONE 30ML UDC PO PRN (22:30)
[2020-02-07] MEDS ORDERED: CLONIDINE 0.1MG TABLET PO PRN (22:30)
[2020-02-07] MEDS ORDERED: INFLUENZA VACCINE 05/PF 0.5 ML VIAL IM ONE (23:00)
[2020-02-07] MEDS: LOSARTAN POTASSIUM 50 MG TABLET PO SCH (23:28)
[2020-02-07] MEDS: PANTOPRAZOLE 40MG DR TABLET PO SCH (23:28)
[2020-02-07] MEDS: APIXABAN 5 MG TABLET PO SCH (23:28)
[2020-02-08] VITALS: BP 140/107
[2020-02-08] MEDS: IPRATROPIUM/ALBUTEROL 0.5-3(2.5)MG/3ML NEB HHN SCH ×4 (01:05→20:57)
[2020-02-08 04:00] VITALS: BP 139/96
[2020-02-08] MEDS: PANTOPRAZOLE 40MG DR TABLET PO SCH (06:20)
[2020-02-08 07:11] LABS: CHLORIDE 112 mEq/L (98-107)
[2020-02-08 07:12] LABS: BASOPHILS % 1.1 % (0.0-2.0); EOSINOPHILS % 1.2 % (0.0-5.0); HEMATOCRIT. 34.9 % (42.0-52.0); HEMOGLOBIN. 10.3 g/dL (14.0-18.0); LYMPHOCYTES % 34.6 % (20.0-50.0); MEAN CORPUSCULAR HEMOGLOBIN 19.8 pg (28.0-32.0); MEAN CORPUSCULAR VOLUME 66.8 fL (80.0-94.0); MEAN PLATELET VOLUME 9.1 fl (7.4-10.4); MONOCYTES % 14.1 % (2.0-8.0); PLATELET 209 x1000/uL (130-400); RED BLOOD CELL COUNT 5.22 mill/uL (4.7-6.1); RED CELL DISTRIBUTION WIDTH 21.8 % (11.6-14.6)
[2020-02-08 07:19] LABS: CREATINE KINASE MB FRACTION 8.6 ng/mL (0.5-3.6)
[2020-02-08 07:22] LABS: LDL CHOLESTEROL 86 mg/dL (5-100)
[2020-02-08 07:23] LABS: CREATINE KINASE 377 IU/L (39-308); CREATINE KINASE MB FRACTION 8.6 ng/mL (0.5-3.6); HDL CHOLESTEROL 47 mg/dL (40-59)
[2020-02-08 08:00] VITALS: BP 127/99
[2020-02-08] MEDS ORDERED: ASPIRIN 81MG EC TABLET PO SCH (09:00)
[2020-02-08] MEDS ORDERED: FUROSEMIDE 40MG/4ML VIAL IV SCH (09:00)
[2020-02-08] MEDS: HYDROCODONE/ACETAMINOPHEN 5/325MG TABLET PO PRN (09:08)
[2020-02-08] MEDS: CARVEDILOL 12.5MG TABLET PO SCH ×2 (09:09→20:34)
[2020-02-08] MEDS: APIXABAN 5 MG TABLET PO SCH ×2 (09:09→18:26)
[2020-02-08] MEDS: LOSARTAN POTASSIUM 50 MG TABLET PO SCH (09:09)
[2020-02-08] MEDS: AMLODIPINE 10MG TABLET PO SCH (09:09)
[2020-02-08] MEDS: FUROSEMIDE 40MG/4ML VIAL IVP SCH ×2 (09:10→18:26)
[2020-02-08 12:00] VITALS: BP 119/91
[2020-02-08] MEDS: POTASSIUM CHLORIDE 20MEQ TABLET SR PO SCH (14:01)
[2020-02-08 16:00] VITALS: BP 156/85
[2020-02-08 20:00] VITALS: BP 105/67
[2020-02-08] MEDS: DOCUSATE SODIUM 250MG CAPSULE PO SCH (22:15)
[2020-02-08] MEDS ORDERED: LACTULOSE 20G/30ML UDC PO ONE (22:15)
[2020-02-09] VITALS: BP 148/63
[2020-02-09] MEDS: IPRATROPIUM/ALBUTEROL 0.5-3(2.5)MG/3ML NEB HHN SCH ×4 (02:26→20:54)
[2020-02-09 04:00] VITALS: BP 102/72
[2020-02-09] MEDS: PANTOPRAZOLE 40MG DR TABLET PO SCH (06:12)
[2020-02-09] MEDS: FUROSEMIDE 40MG/4ML VIAL IVP SCH ×2 (06:18→17:43)
[2020-02-09 07:16] LABS: HEMATOCRIT. 35.4 % (42.0-52.0); HEMOGLOBIN. 10.5 g/dL (14.0-18.0); MEAN CORPUSCULAR HEMOGLOBIN 19.9 pg (28.0-32.0); MEAN PLATELET VOLUME 8.6 fl (7.4-10.4); PLATELET 203 x1000/uL (130-400); RED BLOOD CELL COUNT 5.28 mill/uL (4.7-6.1); RED CELL DISTRIBUTION WIDTH 22.1 % (11.6-14.6)
[2020-02-09 07:31] LABS: CHLORIDE 107 mEq/L (98-107)
[2020-02-09 08:00] VITALS: BP 125/84
[2020-02-09] MEDS: APIXABAN 5 MG TABLET PO SCH ×2 (10:02→17:44)
[2020-02-09] MEDS: POTASSIUM CHLORIDE 20MEQ TABLET SR PO SCH (10:02)
[2020-02-09] MEDS: CARVEDILOL 12.5MG TABLET PO SCH ×2 (10:03→20:54)
[2020-02-09] MEDS: AMLODIPINE 10MG TABLET PO SCH (10:04)
[2020-02-09] MEDS: LOSARTAN POTASSIUM 50 MG TABLET PO SCH (10:07)
[2020-02-09] MEDS: DOCUSATE SODIUM 250MG CAPSULE PO SCH (10:14)
[2020-02-09] MEDS ORDERED: CARVEDILOL 12.5MG TABLET PO NR (11:45)
[2020-02-09 12:41] VITALS: BP 108/74
[2020-02-09] MEDS ORDERED: SORBITOL 70% SOLN 30ML PO NR (13:00)
[2020-02-09 14:17] LABS: PLATELET ESTIMATE NORMAL
[2020-02-09 16:00] VITALS: BP 102/71
[2020-02-09 20:00] VITALS: BP 117/72
[2020-02-10] VITALS: BP 102/71
[2020-02-10] MEDS: IPRATROPIUM/ALBUTEROL 0.5-3(2.5)MG/3ML NEB HHN SCH ×3 (02:17→14:27)
[2020-02-10] MEDS: HYDROCODONE/ACETAMINOPHEN 5/325MG TABLET PO PRN ×2 (02:34→08:27)
[2020-02-10 02:49] VITALS: BP 107/71
[2020-02-10 04:00] VITALS: BP 109/67
[2020-02-10] MEDS: PANTOPRAZOLE 40MG DR TABLET PO SCH (06:36)
[2020-02-10] MEDS: FUROSEMIDE 40MG/4ML VIAL IVP SCH (06:36)
[2020-02-10 08:00] VITALS: BP 119/77
[2020-02-10] MEDS: APIXABAN 5 MG TABLET PO SCH ×2 (08:21→17:03)
[2020-02-10] MEDS: CARVEDILOL 12.5MG TABLET PO SCH (08:22)
[2020-02-10] MEDS: DOCUSATE SODIUM 250MG CAPSULE PO SCH (08:22)
[2020-02-10] MEDS: LOSARTAN POTASSIUM 50 MG TABLET PO SCH (08:23)
[2020-02-10] MEDS: AMLODIPINE 10MG TABLET PO SCH (08:23)
[2020-02-10] MEDS: POTASSIUM CHLORIDE 20MEQ TABLET SR PO SCH (08:24)
[2020-02-10 12:00] VITALS: BP 99/60
[2020-02-10] MEDS ORDERED: COR12 PO (12:39)
[2020-02-10] MEDS ORDERED: DOCU250C14 PO (12:39)
[2020-02-10] MEDS ORDERED: LOSA50TA3 PO (12:39)
[2020-02-10] MEDS ORDERED: APIX5TAB PO (12:39)
[2020-02-10] MEDS ORDERED: POTA20TA82 PO (12:39)
[2020-02-10 12:54] LABS: HEMATOCRIT. 37.5 % (42.0-52.0); HEMOGLOBIN. 11.3 g/dL (14.0-18.0); MEAN CORPUSCULAR VOLUME 66.5 fL (80.0-94.0); MEAN PLATELET VOLUME 8.8 fl (7.4-10.4); PLATELET 213 x1000/uL (130-400); RED BLOOD CELL COUNT 5.63 mill/uL (4.7-6.1)
[2020-02-10 13:30] LABS: PLATELET ESTIMATE NORMAL
[2020-02-10] MEDS ORDERED: SIMV-43 PO (14:08)
[2020-02-10] MEDS ORDERED: FURO40TA5 PO (14:08)
[2020-02-10 17:33] VITALS: BP 99/60
== END 2020-02-10 18:39 | disposition home or self-care (01) | DRG 194 ==
LOC: ER 16:26 → 8WST 20:56 → EDBEDREQTM 21:02 → EDBEDREQ 21:02 → ENRESERV 21:07
PROVIDERS: ADMIT Internal Medicine Nephrology; ATTEND Internal Medicine Nephrology
DX: I13.0 Hypertensive heart and chronic kidney disease with heart failure and stage 1 through stage 4 chronic kidney disease, or unspecified chronic kidney disease (principal); I50.23 Acute on chronic systolic (congestive) heart failure; R07.89 Other chest pain; E87.8 Other disorders of electrolyte and fluid balance, not elsewhere classified; K59.00 Constipation, unspecified; D64.9 Anemia, unspecified; I31.3 Pericardial effusion (noninflammatory); D72.819 Decreased white blood cell count, unspecified; N17.9 Acute kidney failure, unspecified; I42.8 Other cardiomyopathies; I48.20 Chronic atrial fibrillation, unspecified; N18.9 Chronic kidney disease, unspecified; E78.5 Hyperlipidemia, unspecified; I34.0 Nonrheumatic mitral (valve) insufficiency; E78.00 Pure hypercholesterolemia, unspecified; R74.01 Elevation of levels of liver transaminase levels; J44.9 Chronic obstructive pulmonary disease, unspecified; Z79.01 Long term (current) use of anticoagulants; Z95.810 Presence of automatic (implantable) cardiac defibrillator; I25.2 Old myocardial infarction; Z79.899 Other long term (current) drug therapy; Z79.82 Long term (current) use of aspirin
CPT/HCPCS: 36415; 71045; 80048; 80053; 80061; 80305; 80320; 82550; 82553; 83735; 83880; 84439; 84443; 84484; 85025; 90686; 93005; 93306; 94640; 97162; 99285; J1940; J7030; G0480

== ENCOUNTER 2020-05-10 04:53 | Emergency (ER) | payer MEDICAID ==
[~2020-05-10] VITALS: Ht 193 cm; Wt 82.0 kg
[~2020-05-10 04:53] MED LIST changes: -AMLO5TAB4 PO; +APIX5TAB PO; +COR12 PO; -DILT60TA35 MT; +DOCU250C14 PO; +LEVO500T2 MT; -LEVO500T2 PO; +LOSA50TA3 PO; +POTA20TA82 PO
[2020-05-10 06:16] LABS: HEMATOCRIT. 30.3 % (42.0-52.0); HEMOGLOBIN. 9.5 g/dL (14.0-18.0); MEAN CORPUSCULAR HEMOGLOBIN 22.9 pg (28.0-32.0); MEAN PLATELET VOLUME 8.6 fl (7.4-10.4); PLATELET 211 x1000/uL (130-400); RED BLOOD CELL COUNT 4.14 mill/uL (4.7-6.1); RED CELL DISTRIBUTION WIDTH 23.1 % (11.6-14.6)
[2020-05-10 06:24] LABS: CHLORIDE 104 mEq/L (98-107)
[2020-05-10] MEDS ORDERED: DIATR MEGLU/DIATRIZOATE SOLN 30ML ONE (06:56)
[2020-05-10 07:14] LABS: PLATELET ESTIMATE NORMAL
[2020-05-10 10:00] VITALS: BP 133/87
== END 2020-05-10 11:20 | disposition home or self-care (01) ==
LOC: ER 04:53
DX: K59.00 Constipation, unspecified (principal); I25.10 Atherosclerotic heart disease of native coronary artery without angina pectoris; I10 Essential (primary) hypertension; Z86.73 Personal history of transient ischemic attack (TIA), and cerebral infarction without residual deficits; Z95.0 Presence of cardiac pacemaker; Z79.82 Long term (current) use of aspirin
CPT/HCPCS: 36415; 74018; 74176; 80053; 83690; 85025; 93005; 99285; Q9963

== ENCOUNTER 2020-06-06 15:03 | Inpatient (IN) | payer MEDICAID ==
[~2020-06-06] VITALS: Ht 185.4 cm; Wt 71.2 kg
[2020-06-06 18:05] LABS: HEMOGLOBIN. 9.1 g/dL (14.0-18.0); MEAN CORPUSCULAR HEMOGLOBIN 21.7 pg (28.0-32.0); MEAN CORPUSCULAR VOLUME 71.6 fL (80.0-94.0); MEAN PLATELET VOLUME 9.4 fl (7.4-10.4); PLATELET 226 x1000/uL (130-400); RED BLOOD CELL COUNT 4.19 mill/uL (4.7-6.1); RED CELL DISTRIBUTION WIDTH 19.8 % (11.6-14.6)
[2020-06-06 18:07] LABS: INR 1.2; PROTHROMBIN TIME 12.7 sec (9.6-11.0)
[2020-06-06 18:18] LABS: CHLORIDE 112 mEq/L (98-107)
[2020-06-06 18:33] LABS: PLATELET ESTIMATE NORMAL
[2020-06-06] MEDS ORDERED: ASPIRIN 325MG EC TABLET PO ONE (18:45)
[2020-06-06] MEDS ORDERED: DOCUSATE SODIUM 100MG CAPSULE PO PRN (19:00)
[2020-06-06] MEDS ORDERED: ONDANSETRON HCL 4MG/2ML INJ IV PRN (19:00)
[2020-06-06] MEDS ORDERED: CLONIDINE 0.1MG TABLET PO PRN (19:00)
[2020-06-06] MEDS ORDERED: ZOLPIDEM TARTRATE 5MG TABLET PO PRN (19:00)
[2020-06-06] MEDS ORDERED: ENOXAPARIN 40MG/0.4ML SYR SUBCUT SCH (19:00)
[2020-06-06] MEDS ORDERED: GUAIFENESIN 200MG/10ML SUGAR FREE UDC PO PRN (19:00)
[2020-06-06] MEDS ORDERED: ACETAMINOPHEN 325MG TABLET PO PRN (19:00)
[2020-06-06] MEDS ORDERED: IPRATROPIUM/ALBUTEROL 0.5-3(2.5)MG/3ML NEB NEB PRN (19:00)
[2020-06-06] MEDS: NITROGLYCERIN 0.4MG TABLET SL SL PRN (19:07)
[2020-06-06] MEDS: FUROSEMIDE 40MG/4ML VIAL IVP SCH (21:09)
[2020-06-06] MEDS: SPIRONOLACTONE 25MG TABLET PO SCH (21:09)
[2020-06-06] MEDS: LISINOPRIL 20MG TABLET PO SCH (21:10)
[2020-06-06] MEDS: ASCORBIC ACID 500 MG TABLET PO SCH (21:10)
[2020-06-06] MEDS: FAMOTIDINE 20MG TABLET PO SCH (21:10)
[2020-06-07] MEDS: ACETAMINOPHEN 325MG TABLET PO PRN ×2 (03:20→15:57)
[2020-06-07] MEDS: CARVEDILOL 3.125 MG TABLET PO SCH ×2 (06:19→18:10)
[2020-06-07 06:39] LABS: HEMATOCRIT. 30.7 % (42.0-52.0); HEMOGLOBIN. 9.3 g/dL (14.0-18.0); MEAN CORPUSCULAR HEMOGLOBIN 21.5 pg (28.0-32.0); MEAN PLATELET VOLUME 9.1 fl (7.4-10.4); PLATELET 239 x1000/uL (130-400); RED BLOOD CELL COUNT 4.32 mill/uL (4.7-6.1); RED CELL DISTRIBUTION WIDTH 20.2 % (11.6-14.6)
[2020-06-07] MEDS: FAMOTIDINE 20MG TABLET PO SCH ×2 (08:31→21:00)
[2020-06-07] MEDS: ASPIRIN 325MG EC TABLET PO SCH (08:31)
[2020-06-07] MEDS: ZINC SULFATE 220 MG ( 50 ) CAPSULE PO SCH (08:31)
[2020-06-07] MEDS: ASCORBIC ACID 500 MG TABLET PO SCH ×2 (08:31→21:00)
[2020-06-07] MEDS: FUROSEMIDE 40MG/4ML VIAL IVP SCH ×2 (08:31→21:00)
[2020-06-07] MEDS: SPIRONOLACTONE 25MG TABLET PO SCH ×2 (08:31→21:00)
[2020-06-07] MEDS: LISINOPRIL 20MG TABLET PO SCH ×2 (08:31→21:00)
[2020-06-07] MEDS: LORAZEPAM 0.5MG TABLET PO PRN ×2 (08:32→15:57)
[2020-06-07] MEDS: NITROGLYCERIN 0.4MG TABLET SL SL PRN (08:44)
[2020-06-07 09:04] LABS: CHLORIDE 110 mEq/L (98-107)
[2020-06-07 09:12] LABS: PHOSPHORUS 3.6 mg/dL (2.5-4.9)
[2020-06-07] MEDS: CHOLECALCIFEROL (D3) 1000 UNIT TABLET PO SCH (10:02)
[2020-06-07] MEDS: KETOROLAC 15MG/ML VIAL IV PRN (10:34)
[2020-06-07 11:01] LABS: NUCLEATED RED BLOOD CELLS 2 /100 WBC; PLATELET ESTIMATE NORMAL
[2020-06-07 17:38] VITALS: BP 132/90
[2020-06-07] MEDS: APIXABAN 5 MG TABLET PO SCH (18:10)
[2020-06-07 20:00] VITALS: BP 102/68
[2020-06-08] VITALS: BP 114/88
[2020-06-08 04:00] VITALS: BP 114/84
[2020-06-08] MEDS: CARVEDILOL 3.125 MG TABLET PO SCH ×2 (05:05→17:44)
[2020-06-08] MEDS: APIXABAN 5 MG TABLET PO SCH ×2 (05:06→17:44)
[2020-06-08 08:00] VITALS: BP 125/96
[2020-06-08] MEDS: KETOROLAC 15MG/ML VIAL IV PRN ×2 (08:47→14:46)
[2020-06-08] MEDS: LISINOPRIL 20MG TABLET PO SCH ×2 (08:47→21:00)
[2020-06-08] MEDS: FUROSEMIDE 40MG/4ML VIAL IVP SCH ×2 (08:47→21:00)
[2020-06-08] MEDS: SPIRONOLACTONE 25MG TABLET PO SCH ×2 (08:47→22:02)
[2020-06-08] MEDS: ASCORBIC ACID 500 MG TABLET PO SCH ×2 (08:47→22:02)
[2020-06-08] MEDS: ASPIRIN 325MG EC TABLET PO SCH (08:47)
[2020-06-08] MEDS: CHOLECALCIFEROL (D3) 1000 UNIT TABLET PO SCH (08:47)
[2020-06-08] MEDS: ZINC SULFATE 220 MG ( 50 ) CAPSULE PO SCH (08:47)
[2020-06-08] MEDS: FAMOTIDINE 20MG TABLET PO SCH ×2 (08:48→22:02)
[2020-06-08 12:00] VITALS: BP 128/83
[2020-06-08 16:00] VITALS: BP 111/67
[2020-06-08] MEDS: NITROGLYCERIN 0.4MG TABLET SL SL PRN (17:39)
[2020-06-08] MEDS ORDERED: AMLO5TAB4 PO (18:00)
[2020-06-08] MEDS ORDERED: OMEP20TA2 PO (18:00)
[2020-06-08] MEDS ORDERED: FURO40TA5 PO (18:00)
[2020-06-08] MEDS ORDERED: DICY20TA11 PO (18:04)
[2020-06-08] MEDS ORDERED: DOCU-138 PO (18:04)
[2020-06-08 20:00] VITALS: BP 113/74
[2020-06-09 04:00] VITALS: BP 123/84
[2020-06-09] MEDS: KETOROLAC 15MG/ML VIAL IV PRN (04:18)
[2020-06-09] MEDS: CARVEDILOL 3.125 MG TABLET PO SCH (05:12)
[2020-06-09] MEDS: APIXABAN 5 MG TABLET PO SCH (05:12)
[2020-06-09 08:00] VITALS: BP 130/99
[2020-06-09] MEDS: ZINC SULFATE 220 MG ( 50 ) CAPSULE PO SCH (08:00)
[2020-06-09] MEDS: ASPIRIN 325MG EC TABLET PO SCH (08:02)
[2020-06-09] MEDS: ASCORBIC ACID 500 MG TABLET PO SCH (08:02)
[2020-06-09] MEDS: FAMOTIDINE 20MG TABLET PO SCH (08:03)
[2020-06-09] MEDS: FUROSEMIDE 40MG/4ML VIAL IVP SCH (08:04)
[2020-06-09] MEDS: CHOLECALCIFEROL (D3) 1000 UNIT TABLET PO SCH (08:04)
[2020-06-09] MEDS: LISINOPRIL 20MG TABLET PO SCH (08:10)
[2020-06-09] MEDS: SPIRONOLACTONE 25MG TABLET PO SCH (08:13)
[2020-06-09 12:00] VITALS: BP 136/89
[2020-06-09 12:34] VITALS: BP 136/89
[2020-06-09 13:51] VITALS: BP 136/89
== END 2020-06-09 13:05 | disposition home or self-care (01) | DRG 194 ==
LOC: ER 15:03 → MICUSO 18:44 → 8WST 06-07 17:11
PROVIDERS: ADMIT Internal Medicine; ATTEND Internal Medicine
DX: I11.0 Hypertensive heart disease with heart failure (principal); M94.0 Chondrocostal junction syndrome [Tietze]; I50.43 Acute on chronic combined systolic (congestive) and diastolic (congestive) heart failure; J96.00 Acute respiratory failure, unspecified whether with hypoxia or hypercapnia; D63.8 Anemia in other chronic diseases classified elsewhere; E11.9 Type 2 diabetes mellitus without complications; E78.00 Pure hypercholesterolemia, unspecified; I42.9 Cardiomyopathy, unspecified; I48.91 Unspecified atrial fibrillation; Z95.810 Presence of automatic (implantable) cardiac defibrillator
CPT/HCPCS: 36415; 71045; 80053; 80061; 82607; 82746; 83036; 83540; 83550; 83735; 83880; 84100; 84145; 84484; 85025; 85379; 93005; 93970; 96374; 99285; J1885; J1940

== ENCOUNTER 2020-06-10 01:43 | Emergency (ER) | payer MEDICAID ==
[~2020-06-10] VITALS: Ht 175.3 cm; Wt 61.0 kg
[~2020-06-10 01:43] MED LIST changes: -ALBU90AE INH; +AMLO5TAB4 PO; -APIX5TAB PO; -ASPI-1160 MT; -COR12 PO; +DICY20TA11 PO; +DOCU-138 PO; -DOCU250C14 PO; -GABA-529 PO; -LEVO500T2 MT; -LOSA50TA3 PO; +OMEP20TA2 PO; -POTA20TA82 PO; -SIMV-43 PO; -TOPUD PO; -ZOLP10TA2 PO
[2020-06-10] MEDS ORDERED: NITROGLYCERIN 0.4MG TABLET SL SL PRN (02:00)
[2020-06-10] MEDS ORDERED: ASPIRIN 81MG TABLET PO ONE (02:00)
[2020-06-10 02:55] LABS: HEMATOCRIT. 30.2 % (42.0-52.0); MEAN CORPUSCULAR HEMOGLOBIN 21.2 pg (28.0-32.0); MEAN PLATELET VOLUME 9.3 fl (7.4-10.4); PLATELET 242 x1000/uL (130-400); RED BLOOD CELL COUNT 4.25 mill/uL (4.7-6.1); RED CELL DISTRIBUTION WIDTH 19.8 % (11.6-14.6)
[2020-06-10 02:56] LABS: CHLORIDE 104 mEq/L (98-107)
[2020-06-10 03:08] VITALS: BP 101/78
[2020-06-10 06:45] LABS: PLATELET ESTIMATE NORMAL
== END 2020-06-10 03:53 | disposition home or self-care (01) ==
LOC: ER 01:43
DX: R07.9 Chest pain, unspecified (principal); I10 Essential (primary) hypertension
CPT/HCPCS: 36415; 71045; 80053; 83880; 84484; 85025; 93005; 99285; Z7610

== ENCOUNTER 2020-06-25 18:11 | Inpatient (IN) | payer MEDICAID ==
[~2020-06-25] VITALS: Ht 188 cm; Wt 65.8 kg
[2020-06-25] MEDS ORDERED: ASPIRIN 81MG TABLET PO ONE (19:45)
[2020-06-25] MEDS ORDERED: NITROGLYCERIN 0.4MG TABLET SL SL PRN (19:45)
[2020-06-25 20:03] LABS: HEMATOCRIT. 29.2 % (42.0-52.0); HEMOGLOBIN. 8.7 g/dL (14.0-18.0); MEAN CORPUSCULAR HEMOGLOBIN 21.2 pg (28.0-32.0); MEAN CORPUSCULAR VOLUME 70.8 fL (80.0-94.0); MEAN PLATELET VOLUME 8.6 fl (7.4-10.4); PLATELET 310 x1000/uL (130-400); RED BLOOD CELL COUNT 4.13 mill/uL (4.7-6.1); RED CELL DISTRIBUTION WIDTH 19.3 % (11.6-14.6)
[2020-06-25 20:09] LABS: CHLORIDE 108 mEq/L (98-107)
[2020-06-25 20:16] LABS: D-DIMER 0.43 mg/L FEU (<0.50); INR 1.1; PARTIAL THROMBOPLASTIN TIME 25.4 sec (23.4-31.0); PROTHROMBIN TIME 11.4 sec (9.6-11.0)
[2020-06-25 22:45] LABS: PLATELET ESTIMATE NORMAL
[2020-06-26 01:37] VITALS: BP 145/96
[2020-06-26] MEDS ORDERED: HYDR1LIQ5 PO (01:56)
[2020-06-26] MEDS ORDERED: CARV3.1242 PO (01:56)
[2020-06-26] MEDS ORDERED: *PATIENT'S OWN MEDICATION STORAGE XX SCH (02:15)
[2020-06-26] MEDS ORDERED: HYDROMORPHONE HCL 2MG TABLET PO PRN (06:45)
[2020-06-26 08:00] VITALS: BP 134/101
[2020-06-26] MEDS: CARVEDILOL 3.125 MG TABLET PO SCH ×2 (08:18→21:00)
[2020-06-26] MEDS: OMEPRAZOLE 20MG CAPSULE EXTENDED RELEASE PO SCH ×2 (08:19→22:09)
[2020-06-26] MEDS: ASPIRIN 81MG TABLET PO SCH (08:19)
[2020-06-26] MEDS: FUROSEMIDE 40MG TABLET PO SCH ×2 (08:19→21:00)
[2020-06-26] MEDS: NITROGLYCERIN OINT 1GM/INCH UDPKT TD SCH ×3 (08:20→22:08)
[2020-06-26] MEDS: DICYCLOMINE HCL 20MG TABLET PO SCH (08:20)
[2020-06-26] MEDS: DOCUSATE SODIUM 100MG CAPSULE PO SCH (08:20)
[2020-06-26] MEDS ORDERED: NITROGLYCERIN 0.1MG/HR PATCH TOP SCH (09:00)
[2020-06-26] MEDS ORDERED: ENOXAPARIN 40MG/0.4ML SYR SUBCUT SCH (09:00)
[2020-06-26] MEDS ORDERED: AMLODIPINE 5MG TABLET PO SCH (09:00)
[2020-06-26] MEDS: LOSARTAN POTASSIUM 25 MG TABLET PO SCH (10:49)
[2020-06-26] MEDS: APIXABAN 5 MG TABLET PO SCH ×2 (10:50→16:22)
[2020-06-26 12:00] VITALS: BP 122/80
[2020-06-26] MEDS ORDERED: PNEUMOCOCCAL 23-VAL P-SAC VAC 0.5 ML IM ONE (12:00)
[2020-06-26 12:54] LABS: *BENZODIAZEPINES SCREEN URINE NEGATIVE (NEGATIVE); *COCAINE SCREEN URINE NEGATIVE (NEGATIVE); METHADONE URINE SCREEN NEGATIVE (NEGATIVE); OPIATES URINE SCREEN PRESUMTIVE POSITIVE (NEGATIVE)
[2020-06-26 12:56] LABS: PHENCYCLIDINE URINE SCREEN NEGATIVE (NEGATIVE)
[2020-06-26 12:57] LABS: CANNABINOID URINE SCREEN PRESUMTIVE POSITIVE (NEGATIVE)
[2020-06-26 13:00] LABS: *AMPHETAMINES SCREEN URINE NEGATIVE (NEGATIVE)
[2020-06-26 13:04] LABS: *BARBITURATES SCREEN URINE NEGATIVE (NEGATIVE)
[2020-06-26 16:00] VITALS: BP 112/81
[2020-06-26] MEDS ORDERED: NA PHOS,M-B/NA PHOS,DI-BA ENEMA 118ML PR NR (17:00)
[2020-06-26 20:00] VITALS: BP 118/44
[2020-06-26] MEDS: ZOLPIDEM TARTRATE 5MG TABLET PO PRN (22:09)
[2020-06-27] VITALS: BP 120/60
[2020-06-27 04:00] VITALS: BP 130/84
[2020-06-27] MEDS: NITROGLYCERIN OINT 1GM/INCH UDPKT TD SCH ×3 (06:43→21:42)
[2020-06-27] MEDS: HYDROCODONE/ACETAMINOPHEN 10/325MG TABLET PO PRN ×2 (06:44→13:21)
[2020-06-27 07:21] LABS: CHLORIDE 110 mEq/L (98-107)
[2020-06-27 07:47] LABS: HEMATOCRIT. 27.7 % (42.0-52.0); HEMOGLOBIN. 8.3 g/dL (14.0-18.0); MEAN CORPUSCULAR VOLUME 70.1 fL (80.0-94.0); MEAN PLATELET VOLUME 8.8 fl (7.4-10.4); PLATELET 263 x1000/uL (130-400); RED BLOOD CELL COUNT 3.94 mill/uL (4.7-6.1); RED CELL DISTRIBUTION WIDTH 19.5 % (11.6-14.6)
[2020-06-27 08:00] VITALS: BP 121/77
[2020-06-27] MEDS: FUROSEMIDE 40MG TABLET PO SCH ×3 (09:00→21:00)
[2020-06-27] MEDS: DOCUSATE SODIUM 100MG CAPSULE PO SCH (09:26)
[2020-06-27] MEDS: DICYCLOMINE HCL 20MG TABLET PO SCH (09:27)
[2020-06-27] MEDS: ASPIRIN 81MG TABLET PO SCH (09:28)
[2020-06-27] MEDS: OMEPRAZOLE 20MG CAPSULE EXTENDED RELEASE PO SCH (09:28)
[2020-06-27] MEDS: APIXABAN 5 MG TABLET PO SCH (09:28)
[2020-06-27] MEDS: LOSARTAN POTASSIUM 25 MG TABLET PO SCH (09:29)
[2020-06-27] MEDS: CARVEDILOL 3.125 MG TABLET PO SCH ×2 (09:33→21:00)
[2020-06-27 12:00] VITALS: BP 163/79
[2020-06-27 16:00] VITALS: BP 107/64
[2020-06-27] MEDS ORDERED: DOCUSATE SODIUM 250MG CAPSULE PO SCH (16:15)
[2020-06-27] MEDS: FERROUS SULFATE 325MG TABLET PO SCH (18:00)
[2020-06-27 20:00] VITALS: BP 92/30
[2020-06-27] MEDS: ZOLPIDEM TARTRATE 5MG TABLET PO PRN (21:42)
[2020-06-27 22:52] LABS: NUCLEATED RED BLOOD CELLS 1 /100 WBC; PLATELET ESTIMATE NORMAL
[2020-06-28] VITALS: BP 94/42
[2020-06-28 04:00] VITALS: BP 128/80
[2020-06-28] MEDS: NITROGLYCERIN OINT 1GM/INCH UDPKT TD SCH (05:40)
[2020-06-28] MEDS ORDERED: FAMOTIDINE 20MG TABLET PO SCH (07:10)
[2020-06-28] MEDS ORDERED: REGADENOSON 0.4 MG/5 ML IV NR (08:00)
[2020-06-28 08:21] LABS: BASOPHILS % 1.2 % (0.0-2.0); EOSINOPHILS % 2.3 % (0.0-5.0); HEMATOCRIT. 28.4 % (42.0-52.0); HEMOGLOBIN. 8.4 g/dL (14.0-18.0); LYMPHOCYTES % 45.1 % (20.0-50.0); MEAN CORPUSCULAR HEMOGLOBIN 20.8 pg (28.0-32.0); MEAN CORPUSCULAR VOLUME 70.7 fL (80.0-94.0); MEAN PLATELET VOLUME 9.1 fl (7.4-10.4); MONOCYTES % 10.3 % (2.0-8.0); NEUTROPHILS % 41.1 % (40.0-76.0); PLATELET 270 x1000/uL (130-400); RED BLOOD CELL COUNT 4.02 mill/uL (4.7-6.1); RED CELL DISTRIBUTION WIDTH 19.2 % (11.6-14.6)
[2020-06-28 08:38] LABS: CHLORIDE 109 mEq/L (98-107)
[2020-06-28] MEDS: ASPIRIN 81MG TABLET PO SCH (10:54)
[2020-06-28] MEDS: DOCUSATE SODIUM 100MG CAPSULE PO SCH (10:54)
[2020-06-28] MEDS: DICYCLOMINE HCL 20MG TABLET PO SCH (10:55)
[2020-06-28] MEDS: FUROSEMIDE 40MG TABLET PO SCH (10:55)
[2020-06-28] MEDS: FERROUS SULFATE 325MG TABLET PO SCH (10:55)
[2020-06-28] MEDS: CARVEDILOL 3.125 MG TABLET PO SCH (10:57)
[2020-06-28 13:09] VITALS: BP 127/90
== END 2020-06-28 13:40 | disposition home or self-care (01) | DRG 203 ==
LOC: ER 18:11 → 8WST 22:04 → ENRESERV 23:40
PROVIDERS: ADMIT Internal Medicine; ATTEND Internal Medicine
DX: M94.0 Chondrocostal junction syndrome [Tietze] (principal); I11.0 Hypertensive heart disease with heart failure; I42.0 Dilated cardiomyopathy; I48.20 Chronic atrial fibrillation, unspecified; I50.23 Acute on chronic systolic (congestive) heart failure; J44.9 Chronic obstructive pulmonary disease, unspecified; D64.9 Anemia, unspecified; D72.819 Decreased white blood cell count, unspecified; E16.2 Hypoglycemia, unspecified; E78.5 Hyperlipidemia, unspecified; E87.8 Other disorders of electrolyte and fluid balance, not elsewhere classified; F12.90 Cannabis use, unspecified, uncomplicated; I34.0 Nonrheumatic mitral (valve) insufficiency; I25.10 Atherosclerotic heart disease of native coronary artery without angina pectoris; Z20.822 Contact with and (suspected) exposure to COVID-19; Z79.899 Other long term (current) drug therapy; Z95.810 Presence of automatic (implantable) cardiac defibrillator; Z86.73 Personal history of transient ischemic attack (TIA), and cerebral infarction without residual deficits; Z79.01 Long term (current) use of anticoagulants; Z79.84 Long term (current) use of oral hypoglycemic drugs; N17.9 Acute kidney failure, unspecified
CPT/HCPCS: 36415; 71045; 80048; 80053; 80305; 82962; 83735; 83880; 84484; 85025; 85379; 86850; 86900; 87426; 93005; 99285

== ENCOUNTER 2020-07-28 10:32 | Inpatient (IN) | payer MEDICAID ==
[~2020-07-28] VITALS: Ht 182.9 cm; Wt 69.1 kg
[~2020-07-28 10:32] MED LIST changes: +CARV3.1242 PO; +HYDR1LIQ5 PO
[2020-07-28] MEDS ORDERED: ASPIRIN 81MG TABLET PO ONE (11:00)
[2020-07-28] MEDS ORDERED: SODIUM CHLORIDE 0.9% 500 ML IV ONE (11:00)
[2020-07-28 11:27] LABS: CHLORIDE 106 mEq/L (98-107)
[2020-07-28 11:29] LABS: HEMATOCRIT. 31.6 % (42.0-52.0); HEMOGLOBIN. 9.4 g/dL (14.0-18.0); MEAN CORPUSCULAR HEMOGLOBIN 20.6 pg (28.0-32.0); MEAN PLATELET VOLUME 8.3 fl (7.4-10.4); PLATELET 297 x1000/uL (130-400); RED BLOOD CELL COUNT 4.58 mill/uL (4.7-6.1); RED CELL DISTRIBUTION WIDTH 19.8 % (11.6-14.6)
[2020-07-28] MEDS ORDERED: FUROSEMIDE 20MG/2ML VIAL IVP NR (12:00)
[2020-07-28 13:08] LABS: PLATELET ESTIMATE NORMAL
[2020-07-28] MEDS ORDERED: ONDANSETRON HCL 4MG/2ML INJ IV PRN (14:30)
[2020-07-28] MEDS: APIXABAN 5 MG TABLET PO SCH (17:00)
[2020-07-28] MEDS: FUROSEMIDE 40MG/4ML VIAL IVP SCH (17:15)
[2020-07-28] MEDS: FERROUS SULFATE 325MG TABLET PO SCH (17:50)
[2020-07-28 19:47] VITALS: BP 153/96
[2020-07-28 20:00] VITALS: BP 98/59
[2020-07-28] MEDS: AMLODIPINE 5MG TABLET PO SCH (21:00)
[2020-07-28] MEDS: CARVEDILOL 3.125 MG TABLET PO SCH (21:00)
[2020-07-28] MEDS: ACETAMINOPHEN 325MG TABLET PO PRN (21:59)
[2020-07-28] MEDS ORDERED: HYDROCODONE/ACETAMINOPHEN 10/325MG TABLET PO PRN (22:15)
[2020-07-29] VITALS: BP 115/75
[2020-07-29 03:21] LABS: CLARITY URINE CLEAR (CLEAR); COLOR URINE YELLOW (YELLOW); KETONES URINE TRACE (NEGATIVE); LEUKOCYTE ESTERASE URINE NEGATIVE (NEGATIVE); NITRITE URINE NEGATIVE (NEGATIVE); OCCULT BLOOD URINE NEGATIVE (NEGATIVE); PROTEIN URINE NEGATIVE (NEGATIVE); SPECIFIC GRAVITY URINE 1.021 (1.005-1.030); UROBILINOGEN URINE 0.2 E.U./dL (0.2-1.0)
[2020-07-29 03:39] LABS: *AMPHETAMINES SCREEN URINE NEGATIVE (NEGATIVE); *BARBITURATES SCREEN URINE NEGATIVE (NEGATIVE); *BENZODIAZEPINES SCREEN URINE NEGATIVE (NEGATIVE); *COCAINE SCREEN URINE NEGATIVE (NEGATIVE); METHADONE URINE SCREEN NEGATIVE (NEGATIVE); OPIATES URINE SCREEN PRESUMTIVE POSITIVE (NEGATIVE)
[2020-07-29 03:40] LABS: CANNABINOID URINE SCREEN PRESUMTIVE POSITIVE (NEGATIVE); PHENCYCLIDINE URINE SCREEN NEGATIVE (NEGATIVE)
[2020-07-29 04:00] VITALS: BP 111/53
[2020-07-29] MEDS: FUROSEMIDE 40MG/4ML VIAL IVP SCH ×2 (06:18→17:04)
[2020-07-29 06:19] LABS: HEMATOCRIT. 31.3 % (42.0-52.0); HEMOGLOBIN. 9.1 g/dL (14.0-18.0); MEAN CORPUSCULAR HEMOGLOBIN 20.2 pg (28.0-32.0); MEAN CORPUSCULAR VOLUME 69.6 fL (80.0-94.0); MEAN PLATELET VOLUME 8.4 fl (7.4-10.4); PLATELET 272 x1000/uL (130-400); RED CELL DISTRIBUTION WIDTH 19.6 % (11.6-14.6)
[2020-07-29] MEDS: ACETAMINOPHEN 325MG TABLET PO PRN ×3 (06:33→20:55)
[2020-07-29 08:01] VITALS: BP 102/65
[2020-07-29] MEDS: CARVEDILOL 3.125 MG TABLET PO SCH ×2 (09:00→20:59)
[2020-07-29] MEDS: AMLODIPINE 5MG TABLET PO SCH ×2 (09:00→20:59)
[2020-07-29] MEDS: APIXABAN 5 MG TABLET PO SCH ×2 (09:04→17:04)
[2020-07-29] MEDS: FERROUS SULFATE 325MG TABLET PO SCH ×3 (09:04→17:04)
[2020-07-29] MEDS: DOCUSATE SODIUM SUGAR FREE 100MG/10ML UDC PO SCH (09:05)
[2020-07-29 11:47] VITALS: BP 120/76
[2020-07-29 15:59] VITALS: BP 112/74
[2020-07-29 17:09] LABS: PLATELET ESTIMATE NORMAL
[2020-07-29 20:00] VITALS: BP 121/80
[2020-07-29] MEDS ORDERED: ZOLPIDEM TARTRATE 5MG TABLET PO PRN (21:00)
[2020-07-30] VITALS: BP 102/70
[2020-07-30 04:00] VITALS: BP 107/70
[2020-07-30] MEDS: ACETAMINOPHEN 325MG TABLET PO PRN (06:11)
[2020-07-30] MEDS: FUROSEMIDE 40MG/4ML VIAL IVP SCH (06:25)
[2020-07-30 06:57] LABS: HEMATOCRIT. 30.7 % (42.0-52.0); MEAN CORPUSCULAR HEMOGLOBIN 19.7 pg (28.0-32.0); MEAN CORPUSCULAR VOLUME 67.2 fL (80.0-94.0); MEAN PLATELET VOLUME 8.7 fl (7.4-10.4); PLATELET 283 x1000/uL (130-400); RED BLOOD CELL COUNT 4.57 mill/uL (4.7-6.1); RED CELL DISTRIBUTION WIDTH 19.5 % (11.6-14.6)
[2020-07-30 07:19] LABS: CHLORIDE 106 mEq/L (98-107)
[2020-07-30 08:00] VITALS: BP 120/77
[2020-07-30] MEDS: FERROUS SULFATE 325MG TABLET PO SCH (08:32)
[2020-07-30] MEDS: CARVEDILOL 3.125 MG TABLET PO SCH (08:32)
[2020-07-30] MEDS: APIXABAN 5 MG TABLET PO SCH (08:34)
[2020-07-30] MEDS: DOCUSATE SODIUM SUGAR FREE 100MG/10ML UDC PO SCH (08:52)
[2020-07-30] MEDS: AMLODIPINE 5MG TABLET PO SCH (08:52)
[2020-07-30] MEDS ORDERED: FUROSEMIDE 40MG TABLET PO SCH (09:00)
[2020-07-30 09:15] VITALS: BP 120/77
[2020-07-30 14:50] LABS: PLATELET ESTIMATE NORMAL
== END 2020-07-30 10:20 | disposition home or self-care (01) | DRG 194 ==
LOC: ER 10:37 → 6WST 15:26 → EDBEDREQTM 15:27 → EDBEDREQ 15:27 → ENRESERV 15:33
PROVIDERS: ADMIT Internal Medicine; ATTEND Internal Medicine
DX: I13.0 Hypertensive heart and chronic kidney disease with heart failure and stage 1 through stage 4 chronic kidney disease, or unspecified chronic kidney disease (principal); N17.0 Acute kidney failure with tubular necrosis; I50.23 Acute on chronic systolic (congestive) heart failure; I48.19 Other persistent atrial fibrillation; J44.9 Chronic obstructive pulmonary disease, unspecified; I34.0 Nonrheumatic mitral (valve) insufficiency; F12.90 Cannabis use, unspecified, uncomplicated; N18.9 Chronic kidney disease, unspecified; F14.90 Cocaine use, unspecified, uncomplicated; R07.9 Chest pain, unspecified; I42.0 Dilated cardiomyopathy; I31.3 Pericardial effusion (noninflammatory); D72.819 Decreased white blood cell count, unspecified; D72.825 Bandemia; D64.9 Anemia, unspecified; R53.1 Weakness; Z95.810 Presence of automatic (implantable) cardiac defibrillator; Z86.73 Personal history of transient ischemic attack (TIA), and cerebral infarction without residual deficits; Z79.01 Long term (current) use of anticoagulants
CPT/HCPCS: 36415; 71045; 80048; 80053; 80305; 81003; 83880; 84145; 84484; 85025; 85379; 93005; 93306; 99285; J1940; J7030

== ENCOUNTER 2021-01-03 16:28 | Inpatient (IN) | payer OTHER, MEDICAID ==
[~2021-01-03] VITALS: Ht 182.9 cm; Wt 63.5 kg
[~2021-01-03 16:28] MED LIST changes: -CARV3.1242 PO; +COR3 PO; -DICY20TA11 PO; -HYDR1LIQ5 PO; +LOSA25TA3 PO; +POTA20TA82 MT
[2021-01-03 16:59] LABS: HEMATOCRIT. 33.9 % (42.0-52.0); HEMOGLOBIN. 10.5 g/dL (14.0-18.0); MEAN CORPUSCULAR HEMOGLOBIN 21.4 pg (28.0-32.0); MEAN CORPUSCULAR VOLUME 69.3 fL (80.0-94.0); MEAN PLATELET VOLUME 8.4 fl (7.4-10.4); PLATELET 231 x1000/uL (130-400); RED BLOOD CELL COUNT 4.89 mill/uL (4.7-6.1); RED CELL DISTRIBUTION WIDTH 21.6 % (11.6-14.6)
[2021-01-03] MEDS ORDERED: MORPHINE SULFATE 4 MG/ML CPJ (NOT FOR IM USE) IV ONE ×2 (17:15→20:15)
[2021-01-03] MEDS ORDERED: NITROGLYCERIN 0.4MG TABLET SL SL ONE (17:15)
[2021-01-03] MEDS ORDERED: ASPIRIN 81MG TABLET PO ONE (17:15)
[2021-01-03 20:36] LABS: CHLORIDE 114 mEq/L (98-107)
[2021-01-03] MEDS ORDERED: LACTULOSE 20G/30ML UDC PO PRN (22:15)
[2021-01-03] MEDS ORDERED: LACTULOSE 20G/30ML UDC PO NR (22:15)
[2021-01-03] MEDS ORDERED: NALOXONE HCL 0.4MG/ML VIAL IV PRN (22:30)
[2021-01-03] MEDS: ONDANSETRON HCL 4MG/2ML INJ IV PRN (22:30)
[2021-01-03 22:50] VITALS: BP 140/85
[2021-01-03 23:06] LABS: PLATELET ESTIMATE NORMAL
[2021-01-04] VITALS: BP 108/79
[2021-01-04] MEDS ORDERED: LORAZEPAM 2MG/ML CPJ IV PRN (01:15)
[2021-01-04] MEDS: ACETAMINOPHEN 325MG TABLET PO PRN ×2 (01:25→15:07)
[2021-01-04] MEDS ORDERED: FUROSEMIDE 40MG/4ML VIAL IVP NR (01:30)
[2021-01-04 04:00] VITALS: BP 149/81
[2021-01-04] MEDS: ONDANSETRON HCL 4MG/2ML INJ IV PRN (06:15)
[2021-01-04] MEDS ORDERED: FUROSEMIDE 40MG TABLET PO SCH (09:00)
[2021-01-04] MEDS: ASPIRIN 81MG TABLET PO SCH (09:08)
[2021-01-04] MEDS: APIXABAN 5 MG TABLET PO SCH ×2 (09:09→19:11)
[2021-01-04] MEDS: PANTOPRAZOLE 40MG DR TABLET PO SCH (09:09)
[2021-01-04] MEDS: FUROSEMIDE 40MG TABLET PO SCH ×2 (09:09→20:17)
[2021-01-04] MEDS: POTASSIUM CHLORIDE 20MEQ TABLET SR PO SCH (09:09)
[2021-01-04] MEDS: LOSARTAN POTASSIUM 25 MG TABLET PO SCH (09:10)
[2021-01-04] MEDS: CARVEDILOL 3.125 MG TABLET PO SCH ×2 (09:10→20:18)
[2021-01-04 10:12] VITALS: BP 140/100
[2021-01-04 11:13] LABS: BASOPHILS % 0.7 % (0.0-2.0); EOSINOPHILS % 0.5 % (0.0-5.0); HEMATOCRIT. 39.8 % (42.0-52.0); HEMOGLOBIN. 11.8 g/dL (14.0-18.0); LYMPHOCYTES % 17.9 % (20.0-50.0); MEAN CORPUSCULAR HEMOGLOBIN 21.3 pg (28.0-32.0); MEAN CORPUSCULAR VOLUME 71.6 fL (80.0-94.0); MEAN PLATELET VOLUME 8.8 fl (7.4-10.4); MONOCYTES % 8.5 % (2.0-8.0); NEUTROPHILS % 72.4 % (40.0-76.0); PLATELET 229 x1000/uL (130-400); RED BLOOD CELL COUNT 5.55 mill/uL (4.7-6.1); RED CELL DISTRIBUTION WIDTH 22.3 % (11.6-14.6)
[2021-01-04 12:00] VITALS: BP 125/87
[2021-01-04 12:04] LABS: CHLORIDE 106 mEq/L (98-107)
[2021-01-04 12:18] LABS: LDL CHOLESTEROL 78 mg/dL (5-100)
[2021-01-04 12:19] LABS: CREATINE KINASE 379 IU/L (39-308)
[2021-01-04 12:23] LABS: CREATINE KINASE MB FRACTION 11.5 ng/mL (0.5-3.6)
[2021-01-04 12:46] LABS: HDL CHOLESTEROL 62 mg/dL (40-59)
[2021-01-04] MEDS: MORPHINE SULFATE 2 MG/ML CPJ (NOT FOR IM USE) IV PRN ×2 (13:04→19:10)
[2021-01-04 14:16] LABS: CLARITY URINE CLEAR (CLEAR); COLOR URINE YELLOW (YELLOW); KETONES URINE NEGATIVE (NEGATIVE); LEUKOCYTE ESTERASE URINE NEGATIVE (NEGATIVE); NITRITE URINE NEGATIVE (NEGATIVE); OCCULT BLOOD URINE 3+ (NEGATIVE); PH URINE 6.5 (4.5-8.0); PROTEIN URINE NEGATIVE (NEGATIVE); SPECIFIC GRAVITY URINE 1.009 (1.005-1.030); UROBILINOGEN URINE 0.2 E.U./dL (0.2-1.0)
[2021-01-04 14:37] LABS: *AMPHETAMINES SCREEN URINE NEGATIVE (NEGATIVE); *BARBITURATES SCREEN URINE NEGATIVE (NEGATIVE); *BENZODIAZEPINES SCREEN URINE NEGATIVE (NEGATIVE); *COCAINE SCREEN URINE NEGATIVE (NEGATIVE)
[2021-01-04 14:38] LABS: CANNABINOID URINE SCREEN PRESUMTIVE POSITIVE (NEGATIVE); METHADONE URINE SCREEN NEGATIVE (NEGATIVE); OPIATES URINE SCREEN PRESUMTIVE POSITIVE (NEGATIVE); PHENCYCLIDINE URINE SCREEN NEGATIVE (NEGATIVE)
[2021-01-04 16:00] VITALS: BP 133/87
[2021-01-04 18:08] LABS: INR 1.1
[2021-01-04 18:29] LABS: CHLORIDE 107 mEq/L (98-107)
[2021-01-04 18:55] LABS: CREATINE KINASE MB FRACTION 9.7 ng/mL (0.5-3.6)
[2021-01-04] MEDS: NITROGLYCERIN OINT 1GM/INCH UDPKT TD SCH ×3 (19:10→20:22)
[2021-01-04 20:00] VITALS: BP 123/83
[2021-01-05] VITALS: BP 119/87
[2021-01-05] MEDS: MORPHINE SULFATE 2 MG/ML CPJ (NOT FOR IM USE) IV PRN ×2 (02:41→15:18)
[2021-01-05 04:00] VITALS: BP 118/84
[2021-01-05] MEDS: NITROGLYCERIN OINT 1GM/INCH UDPKT TD SCH ×2 (05:24→17:10)
[2021-01-05 07:41] LABS: BASOPHILS % 1.3 % (0.0-2.0); EOSINOPHILS % 2.1 % (0.0-5.0); HEMATOCRIT. 37.3 % (42.0-52.0); HEMOGLOBIN. 11.2 g/dL (14.0-18.0); LYMPHOCYTES % 27.4 % (20.0-50.0); MEAN CORPUSCULAR HEMOGLOBIN 20.8 pg (28.0-32.0); MEAN CORPUSCULAR VOLUME 69.5 fL (80.0-94.0); MEAN PLATELET VOLUME 8.8 fl (7.4-10.4); MONOCYTES % 12.5 % (2.0-8.0); NEUTROPHILS % 56.7 % (40.0-76.0); PLATELET 254 x1000/uL (130-400); RED BLOOD CELL COUNT 5.36 mill/uL (4.7-6.1); RED CELL DISTRIBUTION WIDTH 21.5 % (11.6-14.6)
[2021-01-05 08:00] VITALS: BP 97/75
[2021-01-05] MEDS: ASPIRIN 81MG TABLET PO SCH (09:00)
[2021-01-05] MEDS: CARVEDILOL 3.125 MG TABLET PO SCH (09:00)
[2021-01-05] MEDS: LOSARTAN POTASSIUM 25 MG TABLET PO SCH (09:00)
[2021-01-05] MEDS: PANTOPRAZOLE 40MG DR TABLET PO SCH (09:41)
[2021-01-05] MEDS: ACETAMINOPHEN 325MG TABLET PO PRN ×2 (09:41→17:10)
[2021-01-05] MEDS: POTASSIUM CHLORIDE 20MEQ TABLET SR PO SCH (09:41)
[2021-01-05] MEDS: FUROSEMIDE 40MG TABLET PO SCH (09:41)
[2021-01-05] MEDS: APIXABAN 5 MG TABLET PO SCH ×2 (09:42→17:10)
[2021-01-05] MEDS ORDERED: POTASSIUM CHLORIDE 20MEQ TABLET SR PO SCH (10:30)
[2021-01-05] MEDS ORDERED: POTASSIUM CHLORIDE 20MEQ TABLET SR PO NR (11:15)
[2021-01-05 12:00] VITALS: BP 134/107
[2021-01-05] MEDS ORDERED: OMEP20TA2 PO (13:02)
[2021-01-05] MEDS ORDERED: APIX5TAB MT (13:02)
[2021-01-05] MEDS ORDERED: FURO40TA5 PO (13:02)
[2021-01-05] MEDS ORDERED: LOSA25TA3 PO (13:02)
[2021-01-05] MEDS ORDERED: COR3 PO (13:02)
[2021-01-05 14:42] VITALS: BP 105/60
[2021-01-05 16:00] VITALS: BP 137/93
[2021-01-06] MEDS ORDERED: FAMOTIDINE 20MG TABLET PO SCH (09:00)
== END 2021-01-05 21:08 | disposition home or self-care (01) | DRG 206 ==
LOC: ER 16:34 → 8WST 18:18 → ENRESERV 20:17 → 8WST 01-04 04:39
PROVIDERS: ADMIT Internal Medicine; ATTEND Internal Medicine
DX: M94.0 Chondrocostal junction syndrome [Tietze] (principal); D68.59 Other primary thrombophilia; I31.3 Pericardial effusion (noninflammatory); I42.0 Dilated cardiomyopathy; I48.20 Chronic atrial fibrillation, unspecified; I69.354 Hemiplegia and hemiparesis following cerebral infarction affecting left non-dominant side; M62.82 Rhabdomyolysis; D64.9 Anemia, unspecified; E78.5 Hyperlipidemia, unspecified; Z20.822 Contact with and (suspected) exposure to COVID-19; F12.90 Cannabis use, unspecified, uncomplicated; I12.9 Hypertensive chronic kidney disease with stage 1 through stage 4 chronic kidney disease, or unspecified chronic kidney disease; N18.9 Chronic kidney disease, unspecified; E80.6 Other disorders of bilirubin metabolism; I25.10 Atherosclerotic heart disease of native coronary artery without angina pectoris; I25.2 Old myocardial infarction; Z91.14 Patient's other noncompliance with medication regimen; Z79.01 Long term (current) use of anticoagulants; Z79.899 Other long term (current) drug therapy; Z95.0 Presence of cardiac pacemaker; Z71.51 Drug abuse counseling and surveillance of drug abuser
CPT/HCPCS: 36415; 71045; 80048; 80053; 80061; 80305; 81003; 82550; 82553; 83735; 83880; 84484; 85025; 87426; 93005; 97161; 99285; J1940; J2060; J2270; J2405

== ENCOUNTER 2021-01-15 08:58 | Emergency (ER) | payer OTHER, MEDICAID ==
[~2021-01-15] VITALS: Ht 185.4 cm; Wt 78.0 kg
[~2021-01-15 08:58] MED LIST changes: -AMLO5TAB4 PO
[2021-01-15 10:23] LABS: EOSINOPHILS % 1.6 % (0.0-5.0); HEMATOCRIT. 37.3 % (42.0-52.0); LYMPHOCYTES % 24.3 % (20.0-50.0); MEAN CORPUSCULAR HEMOGLOBIN 21.4 pg (28.0-32.0); MEAN CORPUSCULAR VOLUME 72.7 fL (80.0-94.0); MEAN PLATELET VOLUME 8.9 fl (7.4-10.4); NEUTROPHILS % 64.1 % (40.0-76.0); PLATELET 240 x1000/uL (130-400); RED BLOOD CELL COUNT 5.13 mill/uL (4.7-6.1); RED CELL DISTRIBUTION WIDTH 21.8 % (11.6-14.6)
[2021-01-15 10:30] LABS: CHLORIDE 115 mEq/L (98-107)
[2021-01-15] MEDS ORDERED: MORPHINE SULFATE 4 MG/ML CPJ (NOT FOR IM USE) IV STA (10:30)
[2021-01-15] MEDS ORDERED: NITROGLYCERIN 0.4MG TABLET SL SL PRN (10:30)
[2021-01-15] MEDS ORDERED: NITR0.4T49 SL (10:58)
[2021-01-15] MEDS ORDERED: ONDA4TAB5 MT (11:17)
[2021-01-15 11:58] VITALS: BP 131/88
== END 2021-01-15 12:01 | disposition home or self-care (01) ==
LOC: ER 08:58
DX: R07.89 Other chest pain (principal); I48.91 Unspecified atrial fibrillation; I25.10 Atherosclerotic heart disease of native coronary artery without angina pectoris; I11.0 Hypertensive heart disease with heart failure; I50.9 Heart failure, unspecified; E11.9 Type 2 diabetes mellitus without complications; I69.354 Hemiplegia and hemiparesis following cerebral infarction affecting left non-dominant side
CPT/HCPCS: 36415; 71045; 80053; 84484; 85025; 93005; 96374; 99285; J2270

== ENCOUNTER 2021-01-15 12:05 | Emergency (ER) | payer OTHER, MEDICAID ==
[~2021-01-15] VITALS: Ht 188 cm; Wt 75.0 kg
[~2021-01-15 12:05] MED LIST changes: +NITR0.4T49 SL; +ONDA4TAB5 MT
[2021-01-15] MEDS ORDERED: CYCLOBENZAPRINE 10MG TABLET PO ONE (12:45)
[2021-01-15] MEDS ORDERED: ONDANSETRON 4MG ODT PO ONE (12:45)
[2021-01-15 12:52] VITALS: BP 148/94
== END 2021-01-15 16:36 | disposition home or self-care (01) ==
LOC: ER 12:18
DX: R07.9 Chest pain, unspecified (principal); I48.91 Unspecified atrial fibrillation; I25.10 Atherosclerotic heart disease of native coronary artery without angina pectoris; I11.0 Hypertensive heart disease with heart failure; I50.9 Heart failure, unspecified; E11.9 Type 2 diabetes mellitus without complications; I69.354 Hemiplegia and hemiparesis following cerebral infarction affecting left non-dominant side
CPT/HCPCS: 99283; Q0162

== ENCOUNTER 2021-01-19 05:42 | Inpatient (IN) | payer OTHER, MEDICAID ==
[~2021-01-19] VITALS: Ht 188 cm; Wt 70.8 kg
[2021-01-19] MEDS ORDERED: OMEPRAZOLE 20MG CAPSULE EXTENDED RELEASE PO ONE (06:00)
[2021-01-19] MEDS ORDERED: FUROSEMIDE 40MG TABLET PO ONE (06:00)
[2021-01-19] MEDS ORDERED: LOSARTAN POTASSIUM 25 MG TABLET PO ONE (06:00)
[2021-01-19] MEDS ORDERED: CARVEDILOL 3.125 MG TABLET PO ONE (06:00)
[2021-01-19 06:16] LABS: BASOPHILS % 3.4 % (0.0-2.0); EOSINOPHILS % 1.2 % (0.0-5.0); HEMATOCRIT. 37.8 % (42.0-52.0); HEMOGLOBIN. 11.3 g/dL (14.0-18.0); LYMPHOCYTES % 33.4 % (20.0-50.0); MEAN CORPUSCULAR HEMOGLOBIN 21.4 pg (28.0-32.0); MEAN CORPUSCULAR VOLUME 71.9 fL (80.0-94.0); MEAN PLATELET VOLUME 8.6 fl (7.4-10.4); MONOCYTES % 9.9 % (2.0-8.0); NEUTROPHILS % 52.1 % (40.0-76.0); PLATELET 257 x1000/uL (130-400); RED BLOOD CELL COUNT 5.26 mill/uL (4.7-6.1); RED CELL DISTRIBUTION WIDTH 22.1 % (11.6-14.6)
[2021-01-19 06:19] LABS: CHLORIDE 116 mEq/L (98-107)
[2021-01-19 06:28] LABS: INR 1.1; PARTIAL THROMBOPLASTIN TIME 27.7 sec (23.4-31.0); PROTHROMBIN TIME 12.1 sec (9.6-11.0)
[2021-01-19] MEDS ORDERED: ONDANSETRON HCL 4MG/2ML INJ IV ONE (06:30)
[2021-01-19] MEDS ORDERED: NITROGLYCERIN OINT 1GM/INCH UDPKT TD ONE (06:30)
[2021-01-19 09:38] LABS: CLARITY URINE CLEAR (CLEAR); COLOR URINE DARK YELLOW (YELLOW); KETONES URINE TRACE (NEGATIVE); LEUKOCYTE ESTERASE URINE NEGATIVE (NEGATIVE); NITRITE URINE NEGATIVE (NEGATIVE); OCCULT BLOOD URINE NEGATIVE (NEGATIVE); PROTEIN URINE 3+ (NEGATIVE); SPECIFIC GRAVITY URINE 1.037 (1.005-1.030)
[2021-01-19] MEDS ORDERED: ACETAMINOPHEN 325MG TABLET PO PRN (11:00)
[2021-01-19] MEDS ORDERED: HYDROCODONE/ACETAMINOPHEN 5/325MG TABLET PO PRN (11:00)
[2021-01-19] MEDS ORDERED: HYDRALAZINE 20MG/ML VIAL IV PRN (11:00)
[2021-01-19] MEDS ORDERED: MAGNESIUM/ALUMINUM HYDROXIDE/SIMETHICONE 30ML UDC PO PRN (11:00)
[2021-01-19] MEDS ORDERED: IPRATROPIUM/ALBUTEROL 0.5-3(2.5)MG/3ML NEB HHN PRN (11:00)
[2021-01-19] MEDS ORDERED: GUAIFENESIN 200MG/10ML SUGAR FREE UDC PO PRN (11:00)
[2021-01-19] MEDS ORDERED: LORAZEPAM 2MG/ML CPJ IV PRN (11:00)
[2021-01-19] MEDS ORDERED: DIPHENHYDRAMINE 50MG/ML VIAL IV PRN (11:00)
[2021-01-19] MEDS ORDERED: CLONIDINE 0.1MG TABLET PO PRN (11:00)
[2021-01-19] MEDS ORDERED: DOCUSATE SODIUM 100MG CAPSULE PO PRN (11:00)
[2021-01-19 12:00] VITALS: BP 141/92
[2021-01-19] MEDS ORDERED: ENOXAPARIN 40MG/0.4ML SYR SUBCUT SCH (12:00)
[2021-01-19] MEDS ORDERED: NALOXONE HCL 0.4MG/ML VIAL IV PRN (12:30)
[2021-01-19] MEDS: APIXABAN 5 MG TABLET PO SCH ×2 (13:12→17:32)
[2021-01-19] MEDS: SODIUM CHLORIDE 0.9% INJ 3ML FLUSH IVF SCH ×2 (13:13→20:11)
[2021-01-19] MEDS ORDERED: CARVEDILOL 6.25 MG TABLET PO NR (13:15)
[2021-01-19 13:23] VITALS: BP 141/92
[2021-01-19 16:00] VITALS: BP 145/91
[2021-01-19 16:20] LABS: CREATINE KINASE MB FRACTION 15.8 ng/mL (0.5-3.6)
[2021-01-19] MEDS: ONDANSETRON HCL 4MG/2ML INJ IV PRN (17:32)
[2021-01-19] MEDS: FUROSEMIDE 40MG/4ML VIAL IVP SCH (17:32)
[2021-01-19 20:00] VITALS: BP 128/94
[2021-01-19] MEDS: CARVEDILOL 6.25 MG TABLET PO SCH (20:11)
[2021-01-20] VITALS: BP 139/106
[2021-01-20 01:16] LABS: CREATINE KINASE MB FRACTION 14.4 ng/mL (0.5-3.6)
[2021-01-20 04:00] VITALS: BP 130/82
[2021-01-20] MEDS: SODIUM CHLORIDE 0.9% INJ 3ML FLUSH IVF SCH ×3 (06:14→20:19)
[2021-01-20] MEDS: FUROSEMIDE 40MG/4ML VIAL IVP SCH (06:15)
[2021-01-20] MEDS: MORPHINE SULFATE 2 MG/ML CPJ (NOT FOR IM USE) IV PRN ×2 (06:15→13:20)
[2021-01-20 06:26] LABS: HEMATOCRIT. 36.9 % (42.0-52.0); HEMOGLOBIN. 11.2 g/dL (14.0-18.0); MEAN CORPUSCULAR HEMOGLOBIN 21.6 pg (28.0-32.0); MEAN CORPUSCULAR VOLUME 71.2 fL (80.0-94.0); MEAN PLATELET VOLUME 8.9 fl (7.4-10.4); PLATELET 237 x1000/uL (130-400); RED BLOOD CELL COUNT 5.19 mill/uL (4.7-6.1); RED CELL DISTRIBUTION WIDTH 21.9 % (11.6-14.6)
[2021-01-20 07:09] LABS: CHLORIDE 110 mEq/L (98-107)
[2021-01-20 08:00] VITALS: BP 124/102
[2021-01-20] MEDS: LOSARTAN POTASSIUM 25 MG TABLET PO SCH (09:27)
[2021-01-20] MEDS: APIXABAN 5 MG TABLET PO SCH ×2 (09:28→18:17)
[2021-01-20] MEDS: CARVEDILOL 6.25 MG TABLET PO SCH ×2 (09:28→20:20)
[2021-01-20 12:00] VITALS: BP 125/98
[2021-01-20 12:21] LABS: PLATELET ESTIMATE NORMAL
[2021-01-20 16:00] VITALS: BP 134/97
[2021-01-20] MEDS: ONDANSETRON HCL 4MG/2ML INJ IV PRN (19:57)
[2021-01-20 20:00] VITALS: BP 112/64
[2021-01-21] VITALS: BP 140/98
[2021-01-21 04:00] VITALS: BP 123/63
[2021-01-21] MEDS: SODIUM CHLORIDE 0.9% INJ 3ML FLUSH IVF SCH ×2 (05:42→14:00)
[2021-01-21 08:00] VITALS: BP 143/100
[2021-01-21] MEDS ORDERED: FUROSEMIDE 100MG/10ML VIAL IVP SCH (08:00)
[2021-01-21] MEDS: APIXABAN 5 MG TABLET PO SCH (08:56)
[2021-01-21] MEDS: CARVEDILOL 6.25 MG TABLET PO SCH (08:56)
[2021-01-21] MEDS: LOSARTAN POTASSIUM 25 MG TABLET PO SCH (08:56)
[2021-01-21] MEDS: MORPHINE SULFATE 2 MG/ML CPJ (NOT FOR IM USE) IV PRN (11:23)
[2021-01-21 12:00] VITALS: BP 138/98
[2021-01-21 14:19] VITALS: BP 138/98
[2021-01-22] MEDS ORDERED: FUROSEMIDE 40MG TABLET PO SCH (09:00)
== END 2021-01-21 16:10 | disposition home or self-care (01) | DRG 291 ==
LOC: ER 05:51 → MICUSO 09:05 → 7EST 11:13
PROVIDERS: ADMIT Internal Medicine; ATTEND Internal Medicine
PROC: 4B02XTZ Measurement of Cardiac Defibrillator, External Approach (ICD-10-PCS; principal; 2021-01-20)
DX: I13.0 Hypertensive heart and chronic kidney disease with heart failure and stage 1 through stage 4 chronic kidney disease, or unspecified chronic kidney disease (principal); N17.0 Acute kidney failure with tubular necrosis; I48.20 Chronic atrial fibrillation, unspecified; D68.59 Other primary thrombophilia; R07.9 Chest pain, unspecified; I42.0 Dilated cardiomyopathy; D64.9 Anemia, unspecified; I50.9 Heart failure, unspecified; N43.3 Hydrocele, unspecified; J44.9 Chronic obstructive pulmonary disease, unspecified; N40.0 Benign prostatic hyperplasia without lower urinary tract symptoms; N18.9 Chronic kidney disease, unspecified; E11.22 Type 2 diabetes mellitus with diabetic chronic kidney disease; Z79.01 Long term (current) use of anticoagulants; Z79.4 Long term (current) use of insulin; Z86.73 Personal history of transient ischemic attack (TIA), and cerebral infarction without residual deficits; Z95.810 Presence of automatic (implantable) cardiac defibrillator; Z79.899 Other long term (current) drug therapy
CPT/HCPCS: 36415; 71045; 76870; 80053; 81003; 82550; 82553; 83735; 83880; 84153; 84443; 84484; 85025; 93005; 93970; 93976; 99285; C1893; J0360; J1940; J2060; J2270; J2405; G0103

== ENCOUNTER 2021-02-24 05:27 | Emergency (ER) | payer OTHER, MEDICAID ==
[~2021-02-24] VITALS: Ht 172.7 cm; Wt 80.0 kg
[~2021-02-24 05:27] MED LIST changes: -COR3 PO; +HYDR-4134 MT; +WARF-53 MT
[2021-02-24] MEDS ORDERED: MORPHINE SULFATE 4 MG/ML CPJ (NOT FOR IM USE) IV STA (06:11)
[2021-02-24] MEDS ORDERED: ONDANSETRON HCL 4MG/2ML INJ IV STA (06:11)
[2021-02-24 06:20] LABS: HEMATOCRIT. 33.2 % (42.0-52.0); HEMOGLOBIN. 9.9 g/dL (14.0-18.0); MEAN CORPUSCULAR HEMOGLOBIN 21.6 pg (28.0-32.0); MEAN CORPUSCULAR VOLUME 72.7 fL (80.0-94.0); MEAN PLATELET VOLUME 8.7 fl (7.4-10.4); PLATELET 236 x1000/uL (130-400); RED BLOOD CELL COUNT 4.57 mill/uL (4.7-6.1); RED CELL DISTRIBUTION WIDTH 21.4 % (11.6-14.6)
[2021-02-24 06:27] LABS: CHLORIDE 113 mEq/L (98-107)
[2021-02-24 06:31] LABS: ETHANOL BLOOD < 10 mg/dL; PARTIAL THROMBOPLASTIN TIME 27.3 sec (23.4-31.0)
[2021-02-24] MEDS ORDERED: MORPHINE SULFATE 10 MG/ML CPJ IV STA (06:44)
[2021-02-24] MEDS ORDERED: FUROSEMIDE 40MG/4ML VIAL IVP ONE (07:00)
[2021-02-24 07:20] LABS: PLATELET ESTIMATE NORMAL
[2021-02-24 08:05] LABS: *AMPHETAMINES SCREEN URINE NEGATIVE (NEGATIVE); *BARBITURATES SCREEN URINE NEGATIVE (NEGATIVE); *BENZODIAZEPINES SCREEN URINE NEGATIVE (NEGATIVE); *COCAINE SCREEN URINE NEGATIVE (NEGATIVE); METHADONE URINE SCREEN NEGATIVE (NEGATIVE); OPIATES URINE SCREEN NEGATIVE (NEGATIVE); PHENCYCLIDINE URINE SCREEN NEGATIVE (NEGATIVE)
[2021-02-24 08:06] LABS: CANNABINOID URINE SCREEN PRESUMTIVE POSITIVE (NEGATIVE)
[2021-02-24 10:11] VITALS: BP 148/104
[2021-02-24] MEDS ORDERED: TRAM-529 MT (17:20)
== END 2021-02-24 10:38 | disposition home or self-care (01) ==
LOC: ER 05:27
DX: R07.9 Chest pain, unspecified (principal); I11.0 Hypertensive heart disease with heart failure; I50.9 Heart failure, unspecified; I48.91 Unspecified atrial fibrillation; I25.2 Old myocardial infarction; I42.9 Cardiomyopathy, unspecified; E78.00 Pure hypercholesterolemia, unspecified; Z95.810 Presence of automatic (implantable) cardiac defibrillator
CPT/HCPCS: 36415; 71045; 80053; 80305; 80320; 83880; 84484; 85025; 85610; 85730; 93005; 96374; 96375; 99285; J1940; J2270; J2405; G0480

== ENCOUNTER 2021-02-24 13:23 | Emergency (ER) | payer OTHER, MEDICAID ==
[~2021-02-24] VITALS: Ht 182.9 cm; Wt 82.0 kg
[2021-02-24] MEDS ORDERED: TRAMADOL HCL/ACETAMINOPHEN 37.5/325MG TABLET PO ONE (15:30)
[2021-02-24 15:49] VITALS: BP 130/80
[2021-02-24] MEDS ORDERED: TRAM-529 MT (17:20)
== END 2021-02-24 18:56 | disposition home or self-care (01) ==
LOC: ER 13:23
DX: R07.9 Chest pain, unspecified (principal); I48.91 Unspecified atrial fibrillation; I11.9 Hypertensive heart disease without heart failure; I25.2 Old myocardial infarction; I25.10 Atherosclerotic heart disease of native coronary artery without angina pectoris; Z86.73 Personal history of transient ischemic attack (TIA), and cerebral infarction without residual deficits; Z79.01 Long term (current) use of anticoagulants
CPT/HCPCS: 99283

== ENCOUNTER 2021-03-07 23:24 | Inpatient (IN) | payer OTHER, MEDICAID ==
[~2021-03-07] VITALS: Ht 188 cm; Wt 66.2 kg
[~2021-03-07 23:24] MED LIST changes: +TRAM-529 MT
[2021-03-08 00:37] LABS: HEMATOCRIT. 34.3 % (42.0-52.0); HEMOGLOBIN. 10.1 g/dL (14.0-18.0); MEAN CORPUSCULAR HEMOGLOBIN 21.5 pg (28.0-32.0); MEAN CORPUSCULAR VOLUME 72.6 fL (80.0-94.0); MEAN PLATELET VOLUME 7.9 fl (7.4-10.4); PLATELET 239 x1000/uL (130-400); RED BLOOD CELL COUNT 4.72 mill/uL (4.7-6.1); RED CELL DISTRIBUTION WIDTH 21.9 % (11.6-14.6)
[2021-03-08 00:43] LABS: CHLORIDE 116 mEq/L (98-107)
[2021-03-08] MEDS ORDERED: TRAMADOL 50MG TABLET PO SCH (02:00)
[2021-03-08 05:19] LABS: PLATELET ESTIMATE NORMAL
[2021-03-08 09:00] VITALS: BP 165/85
[2021-03-08] MEDS ORDERED: GUAIFENESIN 200MG/10ML SUGAR FREE UDC PO PRN (09:00)
[2021-03-08] MEDS ORDERED: DIPHENHYDRAMINE 50MG/ML VIAL IV PRN (09:00)
[2021-03-08] MEDS ORDERED: ACETAMINOPHEN 325MG TABLET PO PRN (09:00)
[2021-03-08] MEDS ORDERED: HYDROCODONE/ACETAMINOPHEN 5/325MG TABLET PO PRN (09:00)
[2021-03-08] MEDS ORDERED: NA PHOS,M-B/NA PHOS,DI-BA ENEMA 118ML PR PRN (09:00)
[2021-03-08] MEDS ORDERED: ENOXAPARIN 40MG/0.4ML SYR SUBCUT SCH (09:00)
[2021-03-08] MEDS ORDERED: DOCUSATE SODIUM 100MG CAPSULE PO PRN (09:00)
[2021-03-08] MEDS ORDERED: MAGNESIUM/ALUMINUM HYDROXIDE/SIMETHICONE 30ML UDC PO PRN (09:00)
[2021-03-08] MEDS ORDERED: LORAZEPAM 2MG/ML CPJ IV PRN (09:00)
[2021-03-08] MEDS ORDERED: CLONIDINE 0.1MG TABLET PO PRN (09:00)
[2021-03-08] MEDS ORDERED: IPRATROPIUM/ALBUTEROL 0.5-3(2.5)MG/3ML NEB NEB PRN (09:00)
[2021-03-08] MEDS ORDERED: NALOXONE HCL 0.4MG/ML VIAL IV PRN (09:15)
[2021-03-08 10:00] VITALS: BP 165/85
[2021-03-08] MEDS: ONDANSETRON HCL 4MG/2ML INJ IV PRN ×2 (10:06→20:40)
[2021-03-08] MEDS: ASPIRIN 81MG EC TABLET PO SCH (10:06)
[2021-03-08 11:42] LABS: CHLORIDE 114 mEq/L (98-107)
[2021-03-08 12:00] VITALS: BP 139/82
[2021-03-08] MEDS: FUROSEMIDE 40MG/4ML VIAL IVP SCH (14:49)
[2021-03-08] MEDS: LOSARTAN POTASSIUM 25 MG TABLET PO SCH (14:50)
[2021-03-08 16:00] VITALS: BP 129/80
[2021-03-08] MEDS: MORPHINE SULFATE 2 MG/ML CPJ (NOT FOR IM USE) IV PRN (17:28)
[2021-03-08] MEDS: APIXABAN 5 MG TABLET PO SCH (17:32)
[2021-03-08 20:00] VITALS: BP 135/86
[2021-03-08] MEDS: CARVEDILOL 3.125 MG TABLET PO SCH (21:42)
[2021-03-09] VITALS: BP 115/65
[2021-03-09] MEDS: MORPHINE SULFATE 2 MG/ML CPJ (NOT FOR IM USE) IV PRN ×3 (01:42→18:27)
[2021-03-09] MEDS: ZOLPIDEM TARTRATE 5MG TABLET PO PRN ×2 (01:42→21:10)
[2021-03-09 04:00] VITALS: BP 148/79
[2021-03-09 06:29] LABS: HEMOGLOBIN. 11.1 g/dL (14.0-18.0); MEAN CORPUSCULAR HEMOGLOBIN 21.8 pg (28.0-32.0); MEAN CORPUSCULAR VOLUME 72.9 fL (80.0-94.0); PLATELET 303 x1000/uL (130-400); RED BLOOD CELL COUNT 5.07 mill/uL (4.7-6.1); RED CELL DISTRIBUTION WIDTH 22.3 % (11.6-14.6)
[2021-03-09 06:30] LABS: CHLORIDE 110 mEq/L (98-107)
[2021-03-09 06:46] LABS: LDL CHOLESTEROL 64 mg/dL (5-100)
[2021-03-09 06:47] LABS: HDL CHOLESTEROL 89 mg/dL (40-59); T4 FREE 1.22 ng/dL (0.76-1.46)
[2021-03-09 08:00] VITALS: BP 121/68
[2021-03-09] MEDS: APIXABAN 5 MG TABLET PO SCH ×2 (08:44→18:01)
[2021-03-09] MEDS: FUROSEMIDE 40MG/4ML VIAL IVP SCH ×2 (08:44→18:01)
[2021-03-09] MEDS: LOSARTAN POTASSIUM 25 MG TABLET PO SCH (08:44)
[2021-03-09] MEDS: CARVEDILOL 3.125 MG TABLET PO SCH ×2 (08:44→21:10)
[2021-03-09] MEDS: ASPIRIN 81MG EC TABLET PO SCH (08:44)
[2021-03-09 12:00] VITALS: BP 125/88
[2021-03-09 14:32] LABS: *AMPHETAMINES SCREEN URINE NEGATIVE (NEGATIVE)
[2021-03-09 14:33] LABS: *BARBITURATES SCREEN URINE NEGATIVE (NEGATIVE); *BENZODIAZEPINES SCREEN URINE NEGATIVE (NEGATIVE); *COCAINE SCREEN URINE NEGATIVE (NEGATIVE); METHADONE URINE SCREEN NEGATIVE (NEGATIVE)
[2021-03-09 14:34] LABS: CANNABINOID URINE SCREEN PRESUMTIVE POSITIVE (NEGATIVE); OPIATES URINE SCREEN PRESUMTIVE POSITIVE (NEGATIVE); PHENCYCLIDINE URINE SCREEN NEGATIVE (NEGATIVE)
[2021-03-09 16:00] VITALS: BP 113/77
[2021-03-09 16:33] LABS: PLATELET ESTIMATE NORMAL
[2021-03-09 20:00] VITALS: BP 116/90
[2021-03-10] VITALS: BP 130/96
[2021-03-10 04:00] VITALS: BP 109/69
[2021-03-10] MEDS: ONDANSETRON HCL 4MG/2ML INJ IV PRN (05:18)
[2021-03-10] MEDS: FUROSEMIDE 40MG/4ML VIAL IVP SCH (05:18)
[2021-03-10 07:08] LABS: CHLORIDE 104 mEq/L (98-107)
[2021-03-10 07:22] LABS: BASOPHILS % 1.6 % (0.0-2.0); EOSINOPHILS % 2.6 % (0.0-5.0); HEMOGLOBIN. 11.5 g/dL (14.0-18.0); LYMPHOCYTES % 40.9 % (20.0-50.0); MEAN CORPUSCULAR HEMOGLOBIN 21.7 pg (28.0-32.0); MEAN CORPUSCULAR VOLUME 71.3 fL (80.0-94.0); MEAN PLATELET VOLUME 8.7 fl (7.4-10.4); MONOCYTES % 9.6 % (2.0-8.0); NEUTROPHILS % 45.3 % (40.0-76.0); PLATELET 324 x1000/uL (130-400); RED BLOOD CELL COUNT 5.33 mill/uL (4.7-6.1); RED CELL DISTRIBUTION WIDTH 22.2 % (11.6-14.6)
[2021-03-10 08:00] VITALS: BP 115/83
[2021-03-10] MEDS: LOSARTAN POTASSIUM 25 MG TABLET PO SCH (08:13)
[2021-03-10] MEDS: ASPIRIN 81MG EC TABLET PO SCH (08:13)
[2021-03-10] MEDS: CARVEDILOL 3.125 MG TABLET PO SCH (08:13)
[2021-03-10] MEDS: APIXABAN 5 MG TABLET PO SCH (08:13)
[2021-03-10] MEDS: MORPHINE SULFATE 2 MG/ML CPJ (NOT FOR IM USE) IV PRN ×2 (08:17→13:59)
[2021-03-10 12:00] VITALS: BP 124/87
[2021-03-10 14:11] VITALS: BP 124/87
== END 2021-03-10 15:36 | disposition home or self-care (01) | DRG 291 ==
LOC: ER 23:24 → 6WST 03-08 03:55 → ENRESERV 03-08 07:41 → 6WST 03-09 09:30
PROVIDERS: ADMIT Internal Medicine; ATTEND Internal Medicine
PROC: 4B02XTZ Measurement of Cardiac Defibrillator, External Approach (ICD-10-PCS; principal; 2021-03-08)
DX: I11.0 Hypertensive heart disease with heart failure (principal); I50.23 Acute on chronic systolic (congestive) heart failure; E46 Unspecified protein-calorie malnutrition; I48.19 Other persistent atrial fibrillation; Z68.1 Body mass index [BMI] 19.9 or less, adult; E78.00 Pure hypercholesterolemia, unspecified; I95.9 Hypotension, unspecified; R07.89 Other chest pain; R53.81 Other malaise; I42.0 Dilated cardiomyopathy; F51.04 Psychophysiologic insomnia; I50.82 Biventricular heart failure; I25.10 Atherosclerotic heart disease of native coronary artery without angina pectoris; J45.909 Unspecified asthma, uncomplicated; Z76.5 Malingerer [conscious simulation]; Z79.01 Long term (current) use of anticoagulants; Z86.73 Personal history of transient ischemic attack (TIA), and cerebral infarction without residual deficits; Z87.891 Personal history of nicotine dependence; Z95.810 Presence of automatic (implantable) cardiac defibrillator; Z79.899 Other long term (current) drug therapy; I25.2 Old myocardial infarction
CPT/HCPCS: 36415; 71045; 80048; 80053; 80061; 80305; 83735; 83880; 84439; 84443; 84484; 85025; 85379; 93005; 99285; C1893; J1650; J1940; J2270; J2405

== ENCOUNTER 2021-03-23 23:08 | Inpatient (IN) | payer OTHER, MEDICAID ==
[~2021-03-23] VITALS: Ht 185.4 cm; Wt 74.8 kg
[~2021-03-23 23:08] MED LIST changes: -WARF-53 MT
[2021-03-23] MEDS ORDERED: ASPIRIN 81MG TABLET PO ONE (23:15)
[2021-03-23] MEDS ORDERED: MORPHINE SULFATE 4 MG/ML CPJ (NOT FOR IM USE) IV STA (23:41)
[2021-03-23] MEDS ORDERED: ONDANSETRON HCL 4MG/2ML INJ IV ONE (23:45)
[2021-03-24 00:16] LABS: EOSINOPHILS % 1.8 % (0.0-5.0); HEMATOCRIT. 37.1 % (42.0-52.0); HEMOGLOBIN. 10.9 g/dL (14.0-18.0); LYMPHOCYTES % 25.9 % (20.0-50.0); MEAN CORPUSCULAR HEMOGLOBIN 21.8 pg (28.0-32.0); MEAN CORPUSCULAR VOLUME 73.9 fL (80.0-94.0); MEAN PLATELET VOLUME 8.8 fl (7.4-10.4); NEUTROPHILS % 60.3 % (40.0-76.0); PLATELET 233 x1000/uL (130-400); RED BLOOD CELL COUNT 5.02 mill/uL (4.7-6.1); RED CELL DISTRIBUTION WIDTH 21.8 % (11.6-14.6)
[2021-03-24 00:22] LABS: CHLORIDE 114 mEq/L (98-107)
[2021-03-24] MEDS ORDERED: MORPHINE SULFATE 2 MG/ML CPJ (NOT FOR IM USE) IV ONE (02:45)
[2021-03-24] MEDS ORDERED: NA PHOS,M-B/NA PHOS,DI-BA ENEMA 118ML PR ONE (05:30)
[2021-03-24] MEDS ORDERED: ONDANSETRON HCL 4MG/2ML INJ IV PRN (07:00)
[2021-03-24] MEDS ORDERED: KETOROLAC 15MG/ML VIAL IV PRN (07:00)
[2021-03-24] MEDS ORDERED: ACETAMINOPHEN 325MG TABLET PO PRN (07:00)
[2021-03-24 08:00] VITALS: BP 150/100
[2021-03-24] MEDS: APIXABAN 5 MG TABLET PO SCH ×2 (08:54→17:32)
[2021-03-24 09:00] VITALS: BP 147/97
[2021-03-24] MEDS ORDERED: FUROSEMIDE 40MG/4ML VIAL IVP SCH ×2 (09:00→17:15)
[2021-03-24] MEDS: AMLODIPINE 2.5MG TABLET PO SCH ×2 (10:18→20:33)
[2021-03-24] MEDS ORDERED: INFLUENZA VACCINE 05/PF 0.5 ML SYRINGE IM ONE (10:30)
[2021-03-24 12:00] VITALS: BP 165/90
[2021-03-24 16:00] VITALS: BP 160/100
[2021-03-24 20:00] VITALS: BP 125/90
[2021-03-25 04:00] VITALS: BP 136/92
[2021-03-25 06:51] LABS: BASOPHILS % 1.1 % (0.0-2.0); EOSINOPHILS % 1.2 % (0.0-5.0); HEMATOCRIT. 34.2 % (42.0-52.0); HEMOGLOBIN. 10.3 g/dL (14.0-18.0); MEAN CORPUSCULAR HEMOGLOBIN 21.8 pg (28.0-32.0); MEAN CORPUSCULAR VOLUME 72.2 fL (80.0-94.0); MEAN PLATELET VOLUME 9.1 fl (7.4-10.4); MONOCYTES % 14.1 % (2.0-8.0); NEUTROPHILS % 62.6 % (40.0-76.0); PLATELET 227 x1000/uL (130-400); RED BLOOD CELL COUNT 4.74 mill/uL (4.7-6.1); RED CELL DISTRIBUTION WIDTH 21.6 % (11.6-14.6)
[2021-03-25 08:00] VITALS: BP 153/105
[2021-03-25] MEDS: AMLODIPINE 2.5MG TABLET PO SCH (08:35)
[2021-03-25] MEDS: APIXABAN 5 MG TABLET PO SCH (08:35)
[2021-03-25] MEDS ORDERED: FUROSEMIDE 40MG TABLET PO SCH (09:00)
[2021-03-25 11:24] VITALS: BP 115/82
[2021-03-25 11:42] VITALS: BP 115/83
== END 2021-03-25 14:36 | disposition home or self-care (01) | DRG 291 ==
LOC: ER 23:08 → ENRESERV 03-24 05:02 → 8WST 03-24 05:45
PROVIDERS: ADMIT Internal Medicine; ATTEND Internal Medicine
DX: I11.0 Hypertensive heart disease with heart failure (principal); I50.23 Acute on chronic systolic (congestive) heart failure; E46 Unspecified protein-calorie malnutrition; I48.19 Other persistent atrial fibrillation; I69.354 Hemiplegia and hemiparesis following cerebral infarction affecting left non-dominant side; I42.0 Dilated cardiomyopathy; D64.9 Anemia, unspecified; E78.00 Pure hypercholesterolemia, unspecified; E78.5 Hyperlipidemia, unspecified; E87.8 Other disorders of electrolyte and fluid balance, not elsewhere classified; I25.10 Atherosclerotic heart disease of native coronary artery without angina pectoris; K59.00 Constipation, unspecified; N50.89 Other specified disorders of the male genital organs; F51.04 Psychophysiologic insomnia; I50.82 Biventricular heart failure; Z95.810 Presence of automatic (implantable) cardiac defibrillator; Z76.5 Malingerer [conscious simulation]; Z79.01 Long term (current) use of anticoagulants; Z79.899 Other long term (current) drug therapy; I25.2 Old myocardial infarction
CPT/HCPCS: 36415; 71045; 80048; 80053; 83880; 84484; 85025; 93005; 99285; J1885; J1940; J2270; J2405

== ENCOUNTER 2021-09-07 18:54 | Emergency (ER) | payer OTHER, MEDICAID ==
[~2021-09-07] VITALS: Ht 188 cm; Wt 77.0 kg
[~2021-09-07 18:54] MED LIST changes: +ASPI-1497 MT; +COR3 PO
[2021-09-07 19:32] LABS: BASOPHILS % 1.3 % (0.0-2.0); EOSINOPHILS % 1.6 % (0.0-5.0); HEMATOCRIT. 29.7 % (42.0-52.0); LYMPHOCYTES % 26.3 % (20.0-50.0); MEAN CORPUSCULAR HEMOGLOBIN 23.6 pg (28.0-32.0); MEAN CORPUSCULAR VOLUME 77.5 fL (80.0-94.0); MEAN PLATELET VOLUME 8.5 fl (7.4-10.4); MONOCYTES % 14.8 % (2.0-8.0); PLATELET 256 x1000/uL (130-400); RED BLOOD CELL COUNT 3.83 mill/uL (4.7-6.1); RED CELL DISTRIBUTION WIDTH 22.7 % (11.6-14.6)
[2021-09-07 19:39] LABS: CHLORIDE 114 mEq/L (98-107)
[2021-09-07 20:26] LABS: PLATELET ESTIMATE NORMAL
[2021-09-07] MEDS ORDERED: TRAMADOL 50MG TABLET PO ONE (20:30)
[2021-09-07] MEDS ORDERED: FUROSEMIDE 40MG/4ML VIAL IVP ONE (20:30)
[2021-09-07 22:52] VITALS: BP 130/92
== END 2021-09-07 22:55 | disposition home or self-care (01) ==
LOC: ER 18:54
DX: R07.9 Chest pain, unspecified (principal); I10 Essential (primary) hypertension; I11.0 Hypertensive heart disease with heart failure; I50.9 Heart failure, unspecified; E11.9 Type 2 diabetes mellitus without complications; Z79.82 Long term (current) use of aspirin; Z86.73 Personal history of transient ischemic attack (TIA), and cerebral infarction without residual deficits
CPT/HCPCS: 36415; 71045; 80053; 83880; 84484; 85025; 93005; 99285; J1940

== ENCOUNTER 2021-09-14 19:21 | Inpatient (IN) | payer OTHER, MEDICAID ==
[~2021-09-14] VITALS: Ht 188 cm; Wt 64.4 kg
[2021-09-14] MEDS ORDERED: ASPIRIN 81MG TABLET PO ONE (20:45)
[2021-09-14] MEDS: NITROGLYCERIN 0.4MG TABLET SL SL PRN (21:32)
[2021-09-14 21:47] LABS: CHLORIDE 109 mEq/L (98-107)
[2021-09-14 21:53] LABS: EOSINOPHILS % 2.4 % (0.0-5.0); HEMATOCRIT. 30.5 % (42.0-52.0); HEMOGLOBIN. 9.3 g/dL (14.0-18.0); LYMPHOCYTES % 33.8 % (20.0-50.0); MEAN CORPUSCULAR HEMOGLOBIN 23.5 pg (28.0-32.0); MEAN CORPUSCULAR VOLUME 77.3 fL (80.0-94.0); MEAN PLATELET VOLUME 9.4 fl (7.4-10.4); MONOCYTES % 11.4 % (2.0-8.0); NEUTROPHILS % 49.4 % (40.0-76.0); PLATELET 236 x1000/uL (130-400); RED BLOOD CELL COUNT 3.95 mill/uL (4.7-6.1); RED CELL DISTRIBUTION WIDTH 24.1 % (11.6-14.6)
[2021-09-14 22:02] LABS: D-DIMER 4.35 mg/L FEU (<0.50); INR 1.2; PARTIAL THROMBOPLASTIN TIME 29.5 sec (23.4-31.0); PROTHROMBIN TIME 12.4 sec (9.6-11.0)
[2021-09-14] MEDS ORDERED: MORPHINE SULFATE 4 MG/ML CPJ (NOT FOR IM USE) IV STA (22:07)
[2021-09-14] MEDS ORDERED: ONDANSETRON HCL 4MG/2ML INJ IV STA (22:07)
[2021-09-14] MEDS ORDERED: SODIUM CHLORIDE 0.9% 1,000 ML IV ONE (22:15)
[2021-09-14] MEDS ORDERED: SODIUM BICARBONATE 8.4% 1 MEQ/ML 50ML SYR IV ONE (22:45)
[2021-09-14] MEDS ORDERED: ENOXAPARIN 80MG/0.8ML SYR SUBCUT ONE (23:30)
[2021-09-15] MEDS ORDERED: SODIUM BICARBONATE 8.4% 1 MEQ/ML 50ML SYR IV SCH (01:00)
[2021-09-15] MEDS ORDERED: ENOXAPARIN 80MG/0.8ML SYR SUBCUT SCH (01:00)
[2021-09-15 01:34] VITALS: BP 148/88
[2021-09-15 02:00] VITALS: BP 124/92
[2021-09-15] MEDS ORDERED: DEXTROSE 50% WATER 50ML SYRINGE IV PRN (06:00)
[2021-09-15] MEDS: BLOOD SUGAR DIAGNOSTIC STRIP TEST SCH ×4 (07:04→21:00)
[2021-09-15] MEDS: INSULIN LISPRO 100 UNITS/ML SUBCUT SCH ×4 (07:29→21:00)
[2021-09-15] MEDS: ASPIRIN 81MG TABLET PO SCH (08:07)
[2021-09-15] MEDS ORDERED: MORPHINE SULFATE 2 MG/ML CPJ (NOT FOR IM USE) IV NR (12:15)
[2021-09-15] MEDS ORDERED: FUROSEMIDE 40MG/4ML VIAL IVP NR (13:00)
[2021-09-15] MEDS ORDERED: SODIUM POLYSTYRENE SULFONATE 15 G/60 ML BOT PO NR (13:00)
[2021-09-15 13:21] VITALS: BP 127/78
[2021-09-15 16:16] LABS: HEMATOCRIT. 35.4 % (42.0-52.0); HEMOGLOBIN. 10.2 g/dL (14.0-18.0); MEAN CORPUSCULAR HEMOGLOBIN 23.2 pg (28.0-32.0); MEAN CORPUSCULAR VOLUME 80.5 fL (80.0-94.0); MEAN PLATELET VOLUME 9.3 fl (7.4-10.4); PLATELET 255 x1000/uL (130-400); RED BLOOD CELL COUNT 4.39 mill/uL (4.7-6.1); RED CELL DISTRIBUTION WIDTH 23.9 % (11.6-14.6)
[2021-09-15 16:27] LABS: CREATINE KINASE MB FRACTION 3.7 ng/mL (0.5-3.6)
[2021-09-15 17:21] VITALS: BP 150/82
[2021-09-15 19:28] LABS: CHLORIDE 108 mEq/L (98-107)
[2021-09-15 19:35] LABS: HDL CHOLESTEROL 44 mg/dL (40-59); LDL CHOLESTEROL 54 mg/dL (5-100)
[2021-09-15 19:45] LABS: PLATELET ESTIMATE NORMAL
[2021-09-15 20:00] VITALS: BP 114/71
[2021-09-15] MEDS ORDERED: CARVEDILOL 3.125 MG TABLET PO SCH (21:00)
[2021-09-15 22:00] VITALS: BP 124/65
[2021-09-16] VITALS (8 sets, daily range): BP systolic 103–155; BP diastolic 53–102
[2021-09-16] MEDS: NITROGLYCERIN 0.4MG TABLET SL SL PRN (06:19)
[2021-09-16] MEDS ORDERED: HYDROCODONE/ACETAMINOPHEN 10/325MG TABLET PO PRN (07:00)
[2021-09-16] MEDS ORDERED: NALOXONE HCL 0.4MG/ML VIAL IV PRN (07:15)
[2021-09-16] MEDS: BLOOD SUGAR DIAGNOSTIC STRIP TEST SCH ×4 (07:30→21:00)
[2021-09-16] MEDS: INSULIN LISPRO 100 UNITS/ML SUBCUT SCH ×4 (07:56→21:00)
[2021-09-16] MEDS: APIXABAN 5 MG TABLET PO SCH ×2 (08:22→17:00)
[2021-09-16] MEDS: ASPIRIN 81MG TABLET PO SCH (08:22)
[2021-09-16] MEDS: LOSARTAN POTASSIUM 25 MG TABLET PO SCH (08:23)
[2021-09-16] MEDS: ACETAMINOPHEN 325MG TABLET PO PRN ×2 (08:24→18:57)
[2021-09-16] MEDS ORDERED: FUROSEMIDE 40MG/4ML VIAL IVP SCH (09:00)
[2021-09-16] MEDS ORDERED: CARVEDILOL 3.125 MG TABLET PO SCH (09:00)
[2021-09-16 14:46] LABS: BASOPHILS % 1.2 % (0.0-2.0); EOSINOPHILS % 1.7 % (0.0-5.0); HEMATOCRIT. 32.5 % (42.0-52.0); HEMOGLOBIN. 9.7 g/dL (14.0-18.0); MEAN CORPUSCULAR HEMOGLOBIN 23.1 pg (28.0-32.0); MEAN CORPUSCULAR VOLUME 77.2 fL (80.0-94.0); MEAN PLATELET VOLUME 9.7 fl (7.4-10.4); MONOCYTES % 14.5 % (2.0-8.0); NEUTROPHILS % 65.6 % (40.0-76.0); PLATELET 237 x1000/uL (130-400); RED BLOOD CELL COUNT 4.21 mill/uL (4.7-6.1)
[2021-09-16] MEDS ORDERED: ONDANSETRON HCL 4MG/2ML INJ IV PRN (15:00)
[2021-09-16] MEDS: CARVEDILOL 6.25 MG TABLET PO SCH ×2 (21:00→22:56)
[2021-09-17] VITALS (7 sets, daily range): BP systolic 103–147; BP diastolic 52–73
[2021-09-17] MEDS: BLOOD SUGAR DIAGNOSTIC STRIP TEST SCH ×2 (06:14→11:52)
[2021-09-17 06:58] LABS: HEMATOCRIT. 29.3 % (42.0-52.0); MEAN CORPUSCULAR HEMOGLOBIN 23.5 pg (28.0-32.0); MEAN CORPUSCULAR VOLUME 76.9 fL (80.0-94.0); MEAN PLATELET VOLUME 9.3 fl (7.4-10.4); PLATELET 232 x1000/uL (130-400); RED BLOOD CELL COUNT 3.81 mill/uL (4.7-6.1); RED CELL DISTRIBUTION WIDTH 23.4 % (11.6-14.6)
[2021-09-17] MEDS: INSULIN LISPRO 100 UNITS/ML SUBCUT SCH ×2 (07:59→12:51)
[2021-09-17] MEDS: FUROSEMIDE 40MG/4ML VIAL IVP SCH ×2 (09:00→09:21)
[2021-09-17] MEDS: ASPIRIN 81MG TABLET PO SCH (09:21)
[2021-09-17] MEDS: APIXABAN 5 MG TABLET PO SCH (09:22)
[2021-09-17] MEDS: CARVEDILOL 6.25 MG TABLET PO SCH (09:22)
[2021-09-17] MEDS: LOSARTAN POTASSIUM 25 MG TABLET PO SCH (09:22)
[2021-09-17] MEDS ORDERED: POTASSIUM CHLORIDE 20MEQ TABLET SR PO NR (09:45)
[2021-09-17 14:39] LABS: NUCLEATED RED BLOOD CELLS 2 /100 WBC
[2021-09-17 14:41] LABS: PLATELET ESTIMATE NORMAL
[2021-09-17] MEDS ORDERED: POTASSIUM CHLORIDE 20MEQ TABLET SR PO SCH (17:00)
== END 2021-09-17 14:00 | disposition home or self-care (01) | DRG 205 ==
LOC: ER 19:21 → 5EST 23:20 → ENRESERV 09-15 00:04
PROVIDERS: ADMIT Internal Medicine; ATTEND Internal Medicine
DX: M94.0 Chondrocostal junction syndrome [Tietze] (principal); I50.23 Acute on chronic systolic (congestive) heart failure; I48.19 Other persistent atrial fibrillation; I31.3 Pericardial effusion (noninflammatory); N17.9 Acute kidney failure, unspecified; F11.20 Opioid dependence, uncomplicated; I42.0 Dilated cardiomyopathy; I11.0 Hypertensive heart disease with heart failure; R07.89 Other chest pain; E11.9 Type 2 diabetes mellitus without complications; N28.9 Disorder of kidney and ureter, unspecified; I08.1 Rheumatic disorders of both mitral and tricuspid valves; I27.20 Pulmonary hypertension, unspecified; F17.210 Nicotine dependence, cigarettes, uncomplicated; E87.5 Hyperkalemia; Z76.5 Malingerer [conscious simulation]; Z95.810 Presence of automatic (implantable) cardiac defibrillator; Z91.19 Patient's noncompliance with other medical treatment and regimen; Z79.01 Long term (current) use of anticoagulants; Z86.73 Personal history of transient ischemic attack (TIA), and cerebral infarction without residual deficits; Z79.899 Other long term (current) drug therapy
CPT/HCPCS: 36415; 71045; 78580; 80048; 80053; 80061; 82550; 82553; 83036; 83880; 84484; 85025; 85379; 93005; 93306; 93970; 99285; J1650; J1940; J2270; J2405; J3490; J7030

== ENCOUNTER 2021-10-10 19:13 | Emergency (ER) | payer OTHER, MEDICAID ==
[~2021-10-10] VITALS: Ht 172.7 cm; Wt 68.0 kg
[~2021-10-10 19:13] MED LIST changes: -OMEP20TA2 PO; +OMEP20TA23 PO; +POTA-205 MT; -POTA20TA82 MT
[2021-10-10] MEDS ORDERED: ACETAMINOPHEN 325MG TABLET PO STA (20:38)
[2021-10-10] MEDS ORDERED: IBUPROFEN 600MG TABLET PO ONE (23:00)
[2021-10-10] MEDS ORDERED: FURO40TA5 PO (23:01)
[2021-10-10] MEDS ORDERED: COR3 PO (23:01)
[2021-10-10] MEDS ORDERED: LOSA25TA3 PO (23:01)
[2021-10-10] MEDS ORDERED: HYDR-4134 MT (23:01)
[2021-10-10] MEDS ORDERED: APIX5TAB MT (23:01)
[2021-10-10 23:14] VITALS: BP 144/80
== END 2021-10-10 23:11 | disposition home or self-care (01) ==
LOC: ER 19:13
DX: R07.89 Other chest pain (principal); I11.0 Hypertensive heart disease with heart failure; I50.9 Heart failure, unspecified; I48.20 Chronic atrial fibrillation, unspecified; E11.9 Type 2 diabetes mellitus without complications; Z86.73 Personal history of transient ischemic attack (TIA), and cerebral infarction without residual deficits; Z79.82 Long term (current) use of aspirin; Z79.01 Long term (current) use of anticoagulants
CPT/HCPCS: 71045; 99283

== ENCOUNTER 2021-10-26 20:30 | Emergency (ER) | payer OTHER, MEDICAID ==
[~2021-10-26] VITALS: Ht 182.9 cm; Wt 77.0 kg
[2021-10-27] MEDS ORDERED: KETOROLAC 15MG/ML VIAL IM ONE (00:45)
[2021-10-27 00:48] VITALS: BP 119/72
== END 2021-10-27 02:02 | disposition home or self-care (01) ==
LOC: ER 20:30
DX: R07.89 Other chest pain (principal); I48.91 Unspecified atrial fibrillation; I11.0 Hypertensive heart disease with heart failure; I50.9 Heart failure, unspecified; E11.9 Type 2 diabetes mellitus without complications; R94.31 Abnormal electrocardiogram [ECG] [EKG]; Z95.0 Presence of cardiac pacemaker; Z79.82 Long term (current) use of aspirin; Z86.73 Personal history of transient ischemic attack (TIA), and cerebral infarction without residual deficits
CPT/HCPCS: 93005; 96372; 99283; J1885

== ENCOUNTER 2021-10-28 08:39 | Inpatient (IN) | payer OTHER, MEDICAID ==
[~2021-10-28] VITALS: Ht 188 cm; Wt 65.8 kg
[2021-10-28] MEDS ORDERED: ONDANSETRON 4MG ODT PO STA (09:22)
[2021-10-28] MEDS ORDERED: ASPIRIN 81MG TABLET PO ONE (09:30)
[2021-10-28 10:10] LABS: EOSINOPHILS % 0.7 % (0.0-5.0); HEMATOCRIT. 37.9 % (42.0-52.0); HEMOGLOBIN. 11.5 g/dL (14.0-18.0); LYMPHOCYTES % 19.5 % (20.0-50.0); MEAN CORPUSCULAR VOLUME 82.3 fL (80.0-94.0); MEAN PLATELET VOLUME 8.6 fl (7.4-10.4); MONOCYTES % 5.9 % (2.0-8.0); NEUTROPHILS % 72.9 % (40.0-76.0); PLATELET 234 x1000/uL (130-400); RED CELL DISTRIBUTION WIDTH 26.3 % (11.6-14.6)
[2021-10-28 10:17] LABS: CHLORIDE 107 mEq/L (98-107)
[2021-10-28 11:22] LABS: PLATELET ESTIMATE NORMAL
[2021-10-28] MEDS ORDERED: FUROSEMIDE 40MG TABLET PO ONE (12:45)
[2021-10-28] MEDS: CARVEDILOL 3.125 MG TABLET PO SCH ×2 (15:00→21:00)
[2021-10-28] MEDS: HYDROCODONE/ACETAMINOPHEN 10/325MG TABLET PO PRN (15:30)
[2021-10-28] MEDS: APIXABAN 5 MG TABLET PO SCH (17:00)
[2021-10-28 21:00] VITALS: BP 101/84
[2021-10-28] MEDS: AMLODIPINE 2.5MG TABLET PO SCH (21:00)
[2021-10-29] VITALS: BP 113/80
[2021-10-29] MEDS: ONDANSETRON 4MG ODT PO PRN ×2 (01:39→13:48)
[2021-10-29 04:00] VITALS: BP 114/84
[2021-10-29 08:00] VITALS: BP 129/93
[2021-10-29 08:06] LABS: HEMATOCRIT. 37.1 % (42.0-52.0); HEMOGLOBIN. 11.4 g/dL (14.0-18.0); MEAN CORPUSCULAR HEMOGLOBIN 24.8 pg (28.0-32.0); MEAN CORPUSCULAR VOLUME 80.6 fL (80.0-94.0); MEAN PLATELET VOLUME 8.7 fl (7.4-10.4); PLATELET 235 x1000/uL (130-400); RED CELL DISTRIBUTION WIDTH 26.1 % (11.6-14.6)
[2021-10-29] MEDS ORDERED: FUROSEMIDE 40MG/4ML VIAL IVP SCH (09:00)
[2021-10-29] MEDS: FUROSEMIDE 40MG/4ML VIAL IVP SCH ×2 (09:02→17:12)
[2021-10-29] MEDS: APIXABAN 5 MG TABLET PO SCH ×2 (09:03→17:12)
[2021-10-29] MEDS: CARVEDILOL 3.125 MG TABLET PO SCH ×2 (09:03→20:45)
[2021-10-29] MEDS: AMLODIPINE 2.5MG TABLET PO SCH ×2 (09:04→20:45)
[2021-10-29] MEDS ORDERED: DOCUSATE SODIUM 250MG CAPSULE PO NR (09:15)
[2021-10-29] MEDS: HYDROCODONE/ACETAMINOPHEN 10/325MG TABLET PO PRN ×2 (09:37→20:45)
[2021-10-29] MEDS: IPRATROPIUM/ALBUTEROL 0.5-3(2.5)MG/3ML NEB HHN PRN ×3 (11:10→21:58)
[2021-10-29 16:00] VITALS: BP 125/91
[2021-10-29 20:00] VITALS: BP 131/78
[2021-10-30] VITALS: BP 112/91
[2021-10-30] MEDS: IPRATROPIUM/ALBUTEROL 0.5-3(2.5)MG/3ML NEB HHN PRN ×3 (01:06→07:47)
[2021-10-30 04:00] VITALS: BP 121/77
[2021-10-30 07:43] LABS: HEMATOCRIT. 35.6 % (42.0-52.0); MEAN CORPUSCULAR HEMOGLOBIN 25.3 pg (28.0-32.0); MEAN CORPUSCULAR VOLUME 81.7 fL (80.0-94.0); PLATELET 208 x1000/uL (130-400); RED BLOOD CELL COUNT 4.36 mill/uL (4.7-6.1); RED CELL DISTRIBUTION WIDTH 26.2 % (11.6-14.6)
[2021-10-30 08:00] VITALS: BP 129/99
[2021-10-30] MEDS: CARVEDILOL 3.125 MG TABLET PO SCH ×2 (08:52→20:50)
[2021-10-30] MEDS: APIXABAN 5 MG TABLET PO SCH ×2 (08:52→18:23)
[2021-10-30] MEDS: FUROSEMIDE 40MG/4ML VIAL IVP SCH ×2 (08:52→18:23)
[2021-10-30] MEDS: AMLODIPINE 2.5MG TABLET PO SCH ×2 (08:53→20:48)
[2021-10-30] MEDS: HYDROCODONE/ACETAMINOPHEN 10/325MG TABLET PO PRN ×2 (08:53→20:12)
[2021-10-30 12:00] VITALS: BP 119/86
[2021-10-30 14:55] LABS: PLATELET ESTIMATE NORMAL
[2021-10-30 16:00] VITALS: BP 119/93
[2021-10-30 20:00] VITALS: BP 122/95
[2021-10-30 21:44] LABS: NUCLEATED RED BLOOD CELLS 1 /100 WBC; PLATELET ESTIMATE NORMAL
[2021-10-31] VITALS: BP 110/80
[2021-10-31] MEDS: FUROSEMIDE 40MG/4ML VIAL IVP SCH (01:00)
[2021-10-31] MEDS: IPRATROPIUM/ALBUTEROL 0.5-3(2.5)MG/3ML NEB HHN PRN (01:52)
[2021-10-31 04:00] VITALS: BP 108/45
[2021-10-31 07:11] LABS: BASOPHILS % 1.1 % (0.0-2.0); EOSINOPHILS % 3.1 % (0.0-5.0); HEMATOCRIT. 34.2 % (42.0-52.0); HEMOGLOBIN. 10.7 g/dL (14.0-18.0); LYMPHOCYTES % 17.2 % (20.0-50.0); MEAN CORPUSCULAR HEMOGLOBIN 25.3 pg (28.0-32.0); MONOCYTES % 11.9 % (2.0-8.0); NEUTROPHILS % 66.7 % (40.0-76.0); PLATELET 200 x1000/uL (130-400); RED BLOOD CELL COUNT 4.23 mill/uL (4.7-6.1); RED CELL DISTRIBUTION WIDTH 25.5 % (11.6-14.6)
[2021-10-31 08:00] VITALS: BP 135/83
[2021-10-31] MEDS: APIXABAN 5 MG TABLET PO SCH (08:38)
[2021-10-31] MEDS: CARVEDILOL 3.125 MG TABLET PO SCH (08:39)
[2021-10-31] MEDS: AMLODIPINE 2.5MG TABLET PO SCH (08:39)
[2021-10-31] MEDS ORDERED: FUROSEMIDE 40MG TABLET PO SCH (09:00)
[2021-10-31 10:28] VITALS: BP 135/83
[2021-10-31 12:00] VITALS: BP 122/87
== END 2021-10-31 14:55 | disposition home or self-care (01) | DRG 291 ==
LOC: ER 08:51 → ENRESERV 18:15 → 7WST 21:32
PROVIDERS: ADMIT Internal Medicine; ATTEND Internal Medicine
DX: I13.0 Hypertensive heart and chronic kidney disease with heart failure and stage 1 through stage 4 chronic kidney disease, or unspecified chronic kidney disease (principal); I50.23 Acute on chronic systolic (congestive) heart failure; I31.3 Pericardial effusion (noninflammatory); I48.20 Chronic atrial fibrillation, unspecified; N17.9 Acute kidney failure, unspecified; N18.9 Chronic kidney disease, unspecified; I42.0 Dilated cardiomyopathy; J44.9 Chronic obstructive pulmonary disease, unspecified; F17.210 Nicotine dependence, cigarettes, uncomplicated; I08.1 Rheumatic disorders of both mitral and tricuspid valves; Z20.822 Contact with and (suspected) exposure to COVID-19; I27.20 Pulmonary hypertension, unspecified; E78.5 Hyperlipidemia, unspecified; E87.8 Other disorders of electrolyte and fluid balance, not elsewhere classified; E11.22 Type 2 diabetes mellitus with diabetic chronic kidney disease; D72.819 Decreased white blood cell count, unspecified; Z82.49 Family history of ischemic heart disease and other diseases of the circulatory system; Z79.01 Long term (current) use of anticoagulants; Z79.899 Other long term (current) drug therapy; Z86.73 Personal history of transient ischemic attack (TIA), and cerebral infarction without residual deficits; Z95.810 Presence of automatic (implantable) cardiac defibrillator
CPT/HCPCS: 36415; 71045; 80048; 80053; 83735; 83880; 84484; 85025; 87426; 93005; 93306; 94640; 99285; C9803; J1940; Q0162

== ENCOUNTER 2021-11-04 05:43 | Emergency (ER) | payer OTHER, MEDICAID ==
[~2021-11-04] VITALS: Ht 182.9 cm; Wt 70.0 kg
[2021-11-04] MEDS ORDERED: ONDANSETRON HCL 4MG/2ML INJ IV STA (07:00)
[2021-11-04] MEDS ORDERED: KETOROLAC 30MG/ML VIAL IV STA (07:00)
[2021-11-04 07:22] LABS: HEMATOCRIT. 35.8 % (42.0-52.0); HEMOGLOBIN. 10.6 g/dL (14.0-18.0); MEAN CORPUSCULAR HEMOGLOBIN 24.5 pg (28.0-32.0); MEAN CORPUSCULAR VOLUME 82.9 fL (80.0-94.0); MEAN PLATELET VOLUME 8.5 fl (7.4-10.4); PLATELET 211 x1000/uL (130-400); RED BLOOD CELL COUNT 4.32 mill/uL (4.7-6.1); RED CELL DISTRIBUTION WIDTH 25.2 % (11.6-14.6)
[2021-11-04 07:26] LABS: CHLORIDE 114 mEq/L (98-107)
[2021-11-04 08:14] LABS: PLATELET ESTIMATE NORMAL
[2021-11-04] MEDS ORDERED: TOPUD PO (08:18)
[2021-11-04 08:57] VITALS: BP 115/76
== END 2021-11-04 09:11 | disposition home or self-care (01) ==
LOC: ER 05:43
DX: R07.89 Other chest pain (principal); I11.0 Hypertensive heart disease with heart failure; I50.9 Heart failure, unspecified; E11.9 Type 2 diabetes mellitus without complications; Z86.73 Personal history of transient ischemic attack (TIA), and cerebral infarction without residual deficits; Z79.899 Other long term (current) drug therapy; Z98.890 Other specified postprocedural states
CPT/HCPCS: 36415; 71045; 80053; 83880; 84484; 85025; 93005; 96374; 96375; 99285; J1885; J2405

== ENCOUNTER 2021-11-16 17:29 | Emergency (ER) | payer OTHER, MEDICAID ==
[~2021-11-16] VITALS: Ht 182.9 cm; Wt 70.0 kg
[~2021-11-16 17:29] MED LIST changes: +TOPUD PO
[2021-11-16 17:49] VITALS: BP 105/65
[2021-11-16] MEDS ORDERED: ACETAMINOPHEN 325MG TABLET PO STA (18:47)
[2021-11-16] MEDS ORDERED: NITROGLYCERIN 0.4MG TABLET SL SL PRN (19:00)
[2021-11-16 19:27] LABS: HEMATOCRIT. 33.2 % (42.0-52.0); HEMOGLOBIN. 10.3 g/dL (14.0-18.0); MEAN CORPUSCULAR HEMOGLOBIN 24.7 pg (28.0-32.0); MEAN CORPUSCULAR VOLUME 79.2 fL (80.0-94.0); MEAN PLATELET VOLUME 8.5 fl (7.4-10.4); PLATELET 216 x1000/uL (130-400); RED BLOOD CELL COUNT 4.19 mill/uL (4.7-6.1); RED CELL DISTRIBUTION WIDTH 23.3 % (11.6-14.6)
[2021-11-16 19:37] LABS: CHLORIDE 106 mEq/L (98-107)
[2021-11-16 19:49] LABS: PLATELET ESTIMATE NORMAL
== END 2021-11-16 21:19 | disposition left against medical advice (07) ==
LOC: ER 17:29
DX: R07.9 Chest pain, unspecified (principal); I48.91 Unspecified atrial fibrillation; I11.0 Hypertensive heart disease with heart failure; I50.9 Heart failure, unspecified; E11.9 Type 2 diabetes mellitus without complications; Z95.0 Presence of cardiac pacemaker; Z79.82 Long term (current) use of aspirin; Z86.73 Personal history of transient ischemic attack (TIA), and cerebral infarction without residual deficits
CPT/HCPCS: 36415; 71045; 80053; 83880; 84484; 85025; 93005; 99285

== ENCOUNTER 2021-11-24 11:10 | Emergency (ER) | payer MEDICAID, OTHER ==
[~2021-11-24] VITALS: Ht 177.8 cm; Wt 75.0 kg
[2021-11-24 12:01] VITALS: BP 130/92
[2021-11-24 12:06] LABS: BASOPHILS % 1.3 % (0.0-2.0); EOSINOPHILS % 2.3 % (0.0-5.0); HEMATOCRIT. 35.2 % (42.0-52.0); HEMOGLOBIN. 10.7 g/dL (14.0-18.0); LYMPHOCYTES % 19.9 % (20.0-50.0); MEAN CORPUSCULAR HEMOGLOBIN 24.6 pg (28.0-32.0); MEAN CORPUSCULAR VOLUME 80.7 fL (80.0-94.0); MEAN PLATELET VOLUME 7.8 fl (7.4-10.4); MONOCYTES % 10.5 % (2.0-8.0); PLATELET 285 x1000/uL (130-400); RED BLOOD CELL COUNT 4.36 mill/uL (4.7-6.1); RED CELL DISTRIBUTION WIDTH 22.8 % (11.6-14.6)
[2021-11-24 12:12] LABS: CHLORIDE 112 mEq/L (98-107)
[2021-11-24 12:23] LABS: ETHANOL BLOOD < 10 mg/dL
[2021-11-24 13:26] LABS: PLATELET ESTIMATE NORMAL
[2021-11-24 13:27] LABS: *AMPHETAMINES SCREEN URINE NEGATIVE (NEGATIVE); *BARBITURATES SCREEN URINE NEGATIVE (NEGATIVE); *BENZODIAZEPINES SCREEN URINE NEGATIVE (NEGATIVE); *COCAINE SCREEN URINE NEGATIVE (NEGATIVE); CANNABINOID URINE SCREEN PRESUMTIVE POSITIVE (NEGATIVE); METHADONE URINE SCREEN NEGATIVE (NEGATIVE); OPIATES URINE SCREEN NEGATIVE (NEGATIVE); PHENCYCLIDINE URINE SCREEN NEGATIVE (NEGATIVE)
== END 2021-11-24 13:24 | disposition home or self-care (01) ==
LOC: ER 11:10
DX: R07.9 Chest pain, unspecified (principal); I48.91 Unspecified atrial fibrillation; I11.0 Hypertensive heart disease with heart failure; I50.9 Heart failure, unspecified; E11.9 Type 2 diabetes mellitus without complications; Z95.0 Presence of cardiac pacemaker; Z86.73 Personal history of transient ischemic attack (TIA), and cerebral infarction without residual deficits; Z79.899 Other long term (current) drug therapy
CPT/HCPCS: 36415; 71045; 80053; 80305; 80320; 83880; 84484; 85025; 93005; 99285; G0480

== ENCOUNTER 2021-11-25 02:11 | Emergency (ER) | payer OTHER, MEDICAID ==
[~2021-11-25] VITALS: Ht 182.9 cm; Wt 85.0 kg
[2021-11-25] MEDS ORDERED: KETOROLAC 30MG/ML VIAL IV STA (02:50)
[2021-11-25 03:43] LABS: CHLORIDE 112 mEq/L (98-107)
[2021-11-25 03:50] VITALS: BP 130/86
[2021-11-25 04:12] LABS: BASOPHILS % 2.1 % (0.0-2.0); EOSINOPHILS % 2.5 % (0.0-5.0); HEMATOCRIT. 34.4 % (42.0-52.0); HEMOGLOBIN. 10.5 g/dL (14.0-18.0); LYMPHOCYTES % 20.3 % (20.0-50.0); MEAN CORPUSCULAR HEMOGLOBIN 24.7 pg (28.0-32.0); MEAN CORPUSCULAR VOLUME 80.9 fL (80.0-94.0); MEAN PLATELET VOLUME 8.6 fl (7.4-10.4); MONOCYTES % 13.1 % (2.0-8.0); PLATELET 306 x1000/uL (130-400); RED BLOOD CELL COUNT 4.25 mill/uL (4.7-6.1); RED CELL DISTRIBUTION WIDTH 23.6 % (11.6-14.6)
== END 2021-11-25 04:40 | disposition home or self-care (01) ==
LOC: ER 02:11
DX: R07.89 Other chest pain (principal); I10 Essential (primary) hypertension; Z76.5 Malingerer [conscious simulation]; Z79.899 Other long term (current) drug therapy; Z86.73 Personal history of transient ischemic attack (TIA), and cerebral infarction without residual deficits
CPT/HCPCS: 36415; 71045; 80053; 83880; 84484; 85025; 93005; 96374; 99285; J1885

== ENCOUNTER 2021-11-25 05:06 | Emergency (ER) | payer OTHER, MEDICAID ==
[~2021-11-25] VITALS: Ht 182.9 cm; Wt 85.0 kg
[2021-11-25 05:21] VITALS: BP 147/92
[2021-11-25] MEDS ORDERED: OXYCODONE HCL/ACETAMINOPHEN 5/325MG TABLET PO ONE (06:00)
== END 2021-11-25 06:47 | disposition home or self-care (01) ==
LOC: ER 05:06
DX: R07.89 Other chest pain (principal); Z76.0 Encounter for issue of repeat prescription; Z79.899 Other long term (current) drug therapy; Z86.73 Personal history of transient ischemic attack (TIA), and cerebral infarction without residual deficits; Z98.890 Other specified postprocedural states
CPT/HCPCS: 93005; 99283

== ENCOUNTER 2022-02-02 18:47 | Inpatient (IN) | payer OTHER ==
[~2022-02-02] VITALS: Ht 182.9 cm; Wt 67.6 kg
[2022-02-02] MEDS ORDERED: MORPHINE SULFATE 4 MG/ML CPJ (NOT FOR IM USE) IV ONE (19:00)
[2022-02-02 19:28] LABS: BASOPHILS % 1.2 % (0.0-2.0); EOSINOPHILS % 1.6 % (0.0-5.0); HEMATOCRIT. 25.3 % (42.0-52.0); HEMOGLOBIN. 7.8 g/dL (14.0-18.0); LYMPHOCYTES % 33.1 % (20.0-50.0); MEAN CORPUSCULAR VOLUME 74.4 fL (80.0-94.0); MEAN PLATELET VOLUME 8.5 fl (7.4-10.4); MONOCYTES % 13.7 % (2.0-8.0); NEUTROPHILS % 50.4 % (40.0-76.0); PLATELET 298 x1000/uL (130-400); RED CELL DISTRIBUTION WIDTH 18.8 % (11.6-14.6)
[2022-02-02 19:33] LABS: CHLORIDE 111 mEq/L (98-107)
[2022-02-03] MEDS ORDERED: ACETAMINOPHEN 325MG TABLET PO PRN (04:45)
[2022-02-03] MEDS ORDERED: NITROGLYCERIN 0.4MG TABLET SL SL PRN (04:45)
[2022-02-03] MEDS ORDERED: ONDANSETRON HCL 4MG TABLET PO SCH (04:45)
[2022-02-03 05:00] VITALS: BP 138/97
[2022-02-03] MEDS ORDERED: NALOXONE HCL 0.4MG/ML VIAL IV PRN (05:15)
[2022-02-03] MEDS ORDERED: MORPHINE SULFATE 2 MG/ML CPJ (NOT FOR IM USE) IV NR ×2 (05:15→22:00)
[2022-02-03] MEDS ORDERED: ONDANSETRON HCL 4MG TABLET PO PRN (05:45)
[2022-02-03 08:00] VITALS: BP 141/107
[2022-02-03] MEDS ORDERED: FUROSEMIDE 40MG TABLET PO SCH (09:00)
[2022-02-03] MEDS ORDERED: ASPIRIN 81MG EC TABLET PO SCH (09:00)
[2022-02-03] MEDS: DOCUSATE SODIUM 100MG CAPSULE PO SCH ×2 (09:00→09:20)
[2022-02-03] MEDS ORDERED: APIXABAN 5 MG TABLET PO SCH (09:00)
[2022-02-03] MEDS ORDERED: ONDANSETRON HCL 4MG/2ML INJ IV NR (09:15)
[2022-02-03] MEDS: OMEPRAZOLE 20MG CAPSULE EXTENDED RELEASE PO SCH ×2 (09:21→17:45)
[2022-02-03] MEDS: LOSARTAN POTASSIUM 25 MG TABLET PO SCH (09:21)
[2022-02-03] MEDS: POTASSIUM CHLORIDE 20MEQ TABLET SR PO SCH (09:21)
[2022-02-03] MEDS: CARVEDILOL 3.125 MG TABLET PO SCH ×2 (09:21→17:47)
[2022-02-03] MEDS: HYDRALAZINE HCL 25MG TABLET PO SCH ×3 (09:50→17:46)
[2022-02-03 12:00] VITALS: BP 110/84
[2022-02-03 12:47] LABS: HEMATOCRIT. 28.6 % (42.0-52.0); HEMOGLOBIN. 8.5 g/dL (14.0-18.0); MEAN CORPUSCULAR HEMOGLOBIN 22.8 pg (28.0-32.0); MEAN CORPUSCULAR VOLUME 76.9 fL (80.0-94.0); MEAN PLATELET VOLUME 8.6 fl (7.4-10.4); PLATELET 291 x1000/uL (130-400); RED BLOOD CELL COUNT 3.72 mill/uL (4.7-6.1); RED CELL DISTRIBUTION WIDTH 18.8 % (11.6-14.6)
[2022-02-03 13:02] LABS: CHLORIDE 109 mEq/L (98-107)
[2022-02-03 13:09] LABS: TOTAL IRON BINDING CAPACITY 475 ug/dL (250-450)
[2022-02-03] MEDS: HYDROCODONE/ACETAMINOPHEN 10/325MG TABLET PO PRN (13:09)
[2022-02-03 14:18] LABS: PLATELET ESTIMATE NORMAL
[2022-02-03 16:00] VITALS: BP 117/66
[2022-02-03] MEDS: FUROSEMIDE 40MG/4ML VIAL IVP SCH (17:45)
[2022-02-03 20:00] VITALS: BP 75/35
[2022-02-03] MEDS ORDERED: SODIUM CHLORIDE 0.9% 500 ML IV ONE (20:45)
[2022-02-03 22:11] VITALS: BP 120/60
[2022-02-04] VITALS (7 sets, daily range): BP systolic 90–123; BP diastolic 50–70
[2022-02-04] MEDS: HYDROCODONE/ACETAMINOPHEN 10/325MG TABLET PO PRN ×2 (05:41→12:25)
[2022-02-04 07:59] LABS: EOSINOPHILS % 3.8 % (0.0-5.0); HEMATOCRIT. 28.2 % (42.0-52.0); HEMOGLOBIN. 8.6 g/dL (14.0-18.0); MEAN CORPUSCULAR HEMOGLOBIN 22.7 pg (28.0-32.0); MEAN CORPUSCULAR VOLUME 74.7 fL (80.0-94.0); MEAN PLATELET VOLUME 8.7 fl (7.4-10.4); MONOCYTES % 10.4 % (2.0-8.0); NEUTROPHILS % 53.8 % (40.0-76.0); PLATELET 285 x1000/uL (130-400); RED BLOOD CELL COUNT 3.78 mill/uL (4.7-6.1); RED CELL DISTRIBUTION WIDTH 18.6 % (11.6-14.6)
[2022-02-04] MEDS: DOCUSATE SODIUM 100MG CAPSULE PO SCH (08:39)
[2022-02-04] MEDS: CARVEDILOL 3.125 MG TABLET PO SCH ×2 (08:39→16:31)
[2022-02-04] MEDS: POTASSIUM CHLORIDE 20MEQ TABLET SR PO SCH (08:39)
[2022-02-04] MEDS: FUROSEMIDE 40MG/4ML VIAL IVP SCH ×2 (08:39→16:31)
[2022-02-04] MEDS: HYDRALAZINE HCL 25MG TABLET PO SCH (08:40)
[2022-02-04] MEDS: LOSARTAN POTASSIUM 25 MG TABLET PO SCH (08:40)
[2022-02-04] MEDS: OMEPRAZOLE 20MG CAPSULE EXTENDED RELEASE PO SCH ×2 (08:40→16:31)
[2022-02-04] MEDS ORDERED: MORPHINE SULFATE 2 MG/ML CPJ (NOT FOR IM USE) IV NR (20:45)
[2022-02-05 04:00] VITALS: BP 101/61
[2022-02-05] MEDS ORDERED: LACTULOSE 20G/30ML UDC PO ONE (05:45)
[2022-02-05 07:37] VITALS: BP 123/69
[2022-02-05] MEDS: CARVEDILOL 3.125 MG TABLET PO SCH (08:10)
[2022-02-05] MEDS: FUROSEMIDE 40MG/4ML VIAL IVP SCH (08:10)
[2022-02-05] MEDS: DOCUSATE SODIUM 100MG CAPSULE PO SCH (08:10)
[2022-02-05] MEDS: LOSARTAN POTASSIUM 25 MG TABLET PO SCH (08:10)
[2022-02-05] MEDS: POTASSIUM CHLORIDE 20MEQ TABLET SR PO SCH (08:11)
[2022-02-05] MEDS ORDERED: FAMOTIDINE 20MG TABLET PO SCH (09:00)
[2022-02-05 10:11] LABS: BASOPHILS % 2.2 % (0.0-2.0); EOSINOPHILS % 3.4 % (0.0-5.0); HEMOGLOBIN. 8.2 g/dL (14.0-18.0); LYMPHOCYTES % 22.4 % (20.0-50.0); MEAN CORPUSCULAR HEMOGLOBIN 22.7 pg (28.0-32.0); MEAN CORPUSCULAR VOLUME 74.9 fL (80.0-94.0); MEAN PLATELET VOLUME 8.9 fl (7.4-10.4); MONOCYTES % 13.7 % (2.0-8.0); NEUTROPHILS % 58.3 % (40.0-76.0); PLATELET 287 x1000/uL (130-400); RED BLOOD CELL COUNT 3.61 mill/uL (4.7-6.1); RED CELL DISTRIBUTION WIDTH 18.8 % (11.6-14.6)
== END 2022-02-05 10:40 | disposition home or self-care (01) | DRG 291 ==
LOC: ER 18:47 → MICUSO 22:51 → EDBEDREQ 22:59 → EDBEDREQTM 22:59 → 8WST 02-03 04:17
PROVIDERS: ADMIT Internal Medicine; ATTEND Internal Medicine
DX: I13.0 Hypertensive heart and chronic kidney disease with heart failure and stage 1 through stage 4 chronic kidney disease, or unspecified chronic kidney disease (principal); I50.23 Acute on chronic systolic (congestive) heart failure; I48.19 Other persistent atrial fibrillation; F11.20 Opioid dependence, uncomplicated; I42.0 Dilated cardiomyopathy; D63.1 Anemia in chronic kidney disease; I27.20 Pulmonary hypertension, unspecified; I49.3 Ventricular premature depolarization; N18.9 Chronic kidney disease, unspecified; E87.8 Other disorders of electrolyte and fluid balance, not elsewhere classified; D72.819 Decreased white blood cell count, unspecified; F12.90 Cannabis use, unspecified, uncomplicated; F17.210 Nicotine dependence, cigarettes, uncomplicated; Z86.73 Personal history of transient ischemic attack (TIA), and cerebral infarction without residual deficits; Z76.5 Malingerer [conscious simulation]; Z95.810 Presence of automatic (implantable) cardiac defibrillator; Z79.899 Other long term (current) drug therapy; Z79.01 Long term (current) use of anticoagulants; Z91.199 Patient's noncompliance with other medical treatment and regimen due to unspecified reason; Z82.49 Family history of ischemic heart disease and other diseases of the circulatory system
CPT/HCPCS: 36415; 71045; 80048; 80053; 82728; 82962; 83540; 83550; 83735; 83880; 84484; 85025; 93005; 93306; 99285; J1940; J2270; Q0162

== ENCOUNTER 2022-09-16 00:04 | Inpatient (IN) | payer BC, MEDICAID ==
[~2022-09-16] VITALS: Ht 188 cm; Wt 66.2 kg
[2022-09-16] MEDS ORDERED: ASPIRIN 325MG EC TABLET PO ONE (01:30)
[2022-09-16] MEDS ORDERED: MORPHINE SULFATE 4 MG/ML CPJ (NOT FOR IM USE) IV ONE (01:30)
[2022-09-16] MEDS ORDERED: NITROGLYCERIN OINT 1GM/INCH UDPKT TD ONE (01:30)
[2022-09-16 02:07] LABS: BASOPHILS % 1.5 % (0.0-2.0); EOSINOPHILS % 2.5 % (0.0-5.0); HEMATOCRIT. 34.3 % (42.0-52.0); HEMOGLOBIN. 10.5 g/dL (14.0-18.0); LYMPHOCYTES % 23.6 % (20.0-50.0); MEAN CORPUSCULAR HEMOGLOBIN 23.4 pg (28.0-32.0); MEAN CORPUSCULAR VOLUME 76.6 fL (80.0-94.0); MEAN PLATELET VOLUME 9.2 fl (7.4-10.4); NEUTROPHILS % 61.4 % (40.0-76.0); PLATELET 193 x1000/uL (130-400); RED BLOOD CELL COUNT 4.48 mill/uL (4.7-6.1); RED CELL DISTRIBUTION WIDTH 22.7 % (11.6-14.6)
[2022-09-16 02:16] LABS: CHLORIDE 113 mEq/L (98-107)
[2022-09-16 03:20] LABS: PLATELET ESTIMATE NORMAL
[2022-09-16 09:00] VITALS: BP 125/79
[2022-09-16] MEDS ORDERED: METOPROLOL SUCCINATE 50MG ER TABLET PO SCH (09:00)
[2022-09-16] MEDS: METOPROLOL TARTRATE 50MG TABLET PO SCH ×2 (09:30→16:45)
[2022-09-16] MEDS: ASPIRIN 81MG TABLET PO SCH (09:31)
[2022-09-16] MEDS ORDERED: ONDANSETRON HCL 4MG/2ML INJ IV PRN (09:45)
[2022-09-16] MEDS: APIXABAN 5 MG TABLET PO SCH ×2 (10:17→20:42)
[2022-09-16 11:18] VITALS: BP 128/85
[2022-09-16 12:00] VITALS: BP 114/75
[2022-09-16 16:20] VITALS: BP 118/91
[2022-09-16 20:15] VITALS: BP 119/78
[2022-09-16] MEDS: ATORVASTATIN CALCIUM 20MG TABLET PO SCH (20:41)
[2022-09-16] MEDS: CARVEDILOL 6.25 MG TABLET PO SCH (20:43)
[2022-09-16 20:51] LABS: HEPATITIS B SURFACE ANTIGEN NEGATIVE
[2022-09-17] VITALS: BP 124/78
[2022-09-17] MEDS: ACETAMINOPHEN 325MG TABLET PO PRN (02:18)
[2022-09-17 04:00] VITALS: BP 116/68
[2022-09-17 08:00] VITALS: BP 109/85
[2022-09-17] MEDS: FUROSEMIDE 40MG/4ML VIAL IVP SCH (08:28)
[2022-09-17] MEDS: ASPIRIN 81MG TABLET PO SCH (08:29)
[2022-09-17] MEDS: APIXABAN 5 MG TABLET PO SCH ×2 (08:29→20:24)
[2022-09-17] MEDS: CARVEDILOL 6.25 MG TABLET PO SCH ×2 (08:30→20:26)
[2022-09-17] MEDS: METOPROLOL TARTRATE 50MG TABLET PO SCH ×2 (08:30→16:47)
[2022-09-17 11:17] VITALS: BP_SYST 106; BP_SYST 110; BP_DIAS 72; BP_DIAS 79
[2022-09-17 15:40] VITALS: BP 111/82
[2022-09-17 20:00] VITALS: BP 107/78
[2022-09-17] MEDS: ATORVASTATIN CALCIUM 20MG TABLET PO SCH (20:24)
[2022-09-17] MEDS ORDERED: LORAZEPAM 2MG/ML CPJ IV PRN (20:45)
[2022-09-18] VITALS: BP 92/57
[2022-09-18 04:00] VITALS: BP 101/71
[2022-09-18 08:00] VITALS: BP 121/86
[2022-09-18] MEDS: FUROSEMIDE 40MG/4ML VIAL IVP SCH ×2 (08:46→09:00)
[2022-09-18] MEDS: CARVEDILOL 6.25 MG TABLET PO SCH (08:48)
[2022-09-18] MEDS: ASPIRIN 81MG TABLET PO SCH (08:49)
[2022-09-18] MEDS: METOPROLOL TARTRATE 50MG TABLET PO SCH (08:49)
[2022-09-18] MEDS: APIXABAN 5 MG TABLET PO SCH ×2 (08:49→20:42)
[2022-09-18] MEDS: LORAZEPAM 2MG/ML CPJ IV PRN ×3 (10:23→20:41)
[2022-09-18 12:00] VITALS: BP 114/86
[2022-09-18 16:00] VITALS: BP 120/98
[2022-09-18] MEDS ORDERED: FUROSEMIDE 40MG/4ML VIAL IVP SCH (17:15)
[2022-09-18 20:00] VITALS: BP 122/97
[2022-09-18] MEDS: CARVEDILOL 12.5MG TABLET PO SCH (20:41)
[2022-09-18] MEDS: ATORVASTATIN CALCIUM 20MG TABLET PO SCH (20:42)
[2022-09-19] VITALS: BP 110/84
[2022-09-19 04:00] VITALS: BP 119/89
[2022-09-19] MEDS: LORAZEPAM 2MG/ML CPJ IV PRN (04:07)
[2022-09-19] MEDS ORDERED: FUROSEMIDE 100MG/10ML VIAL IVP SCH (07:15)
[2022-09-19 08:00] VITALS: BP 128/110
[2022-09-19] MEDS: CARVEDILOL 12.5MG TABLET PO SCH ×3 (09:00→20:13)
[2022-09-19] MEDS: FUROSEMIDE 20MG TABLET PO SCH ×3 (09:00→20:12)
[2022-09-19] MEDS: APIXABAN 5 MG TABLET PO SCH ×3 (09:00→20:12)
[2022-09-19] MEDS: ASPIRIN 81MG TABLET PO SCH ×2 (09:00→10:10)
[2022-09-19 09:31] LABS: EOSINOPHILS % 1.2 % (0.0-5.0); HEMATOCRIT. 37.2 % (42.0-52.0); HEMOGLOBIN. 11.6 g/dL (14.0-18.0); LYMPHOCYTES % 17.7 % (20.0-50.0); MEAN CORPUSCULAR HEMOGLOBIN 23.8 pg (28.0-32.0); MEAN CORPUSCULAR VOLUME 76.4 fL (80.0-94.0); MEAN PLATELET VOLUME 9.3 fl (7.4-10.4); NEUTROPHILS % 65.1 % (40.0-76.0); PLATELET 248 x1000/uL (130-400); RED BLOOD CELL COUNT 4.87 mill/uL (4.7-6.1); RED CELL DISTRIBUTION WIDTH 23.4 % (11.6-14.6)
[2022-09-19 12:00] VITALS: BP 119/99
[2022-09-19] MEDS: LORAZEPAM 1MG TABLET PO PRN (15:09)
[2022-09-19 16:00] VITALS: BP 122/97
[2022-09-19 20:00] VITALS: BP 130/99
[2022-09-19] MEDS: ATORVASTATIN CALCIUM 20MG TABLET PO SCH (20:12)
[2022-09-19] MEDS ORDERED: NALOXONE HCL 0.4MG/ML VIAL IV PRN (20:15)
[2022-09-19] MEDS ORDERED: HYDROCODONE/ACETAMINOPHEN 10/325MG TABLET PO PRN (20:15)
[2022-09-20] VITALS: BP 121/86
[2022-09-20 04:00] VITALS: BP 129/79
[2022-09-20] MEDS: LORAZEPAM 1MG TABLET PO PRN (06:14)
[2022-09-20 08:00] VITALS: BP 129/105
[2022-09-20 12:00] VITALS: BP 144/104
[2022-09-20] MEDS: CARVEDILOL 12.5MG TABLET PO SCH ×2 (12:05→23:11)
[2022-09-20] MEDS: ASPIRIN 81MG TABLET PO SCH (12:05)
[2022-09-20] MEDS: APIXABAN 5 MG TABLET PO SCH ×2 (12:05→23:11)
[2022-09-20] MEDS: FUROSEMIDE 20MG TABLET PO SCH ×2 (12:06→23:10)
[2022-09-20 16:00] VITALS: BP 112/83
[2022-09-20 20:00] VITALS: BP 117/97
[2022-09-20] MEDS ORDERED: ZOLPIDEM TARTRATE 5MG TABLET PO PRN (21:00)
[2022-09-20] MEDS: ATORVASTATIN CALCIUM 20MG TABLET PO SCH (23:10)
[2022-09-21] VITALS: BP_SYST 122; BP_DIAS 90; BP_DIAS 93
[2022-09-21 04:00] VITALS: BP 118/88
[2022-09-21] MEDS: CARVEDILOL 12.5MG TABLET PO SCH ×2 (08:17→20:44)
[2022-09-21] MEDS: APIXABAN 5 MG TABLET PO SCH ×2 (08:17→20:44)
[2022-09-21] MEDS: FUROSEMIDE 20MG TABLET PO SCH ×2 (08:18→20:49)
[2022-09-21] MEDS: ASPIRIN 81MG TABLET PO SCH (08:18)
[2022-09-21 12:00] VITALS: BP 108/52
[2022-09-21] MEDS: ACETAMINOPHEN 325MG TABLET PO PRN (15:28)
[2022-09-21 16:00] VITALS: BP 104/68
[2022-09-21] MEDS ORDERED: HYDROCODONE/ACETAMINOPHEN 10/325MG TABLET PO PRN (17:15)
[2022-09-21 20:00] VITALS: BP 141/72
[2022-09-21] MEDS ORDERED: LORAZEPAM 1MG TABLET PO PRN (20:15)
[2022-09-21] MEDS: ATORVASTATIN CALCIUM 20MG TABLET PO SCH (20:44)
[2022-09-22] VITALS: BP 115/87
[2022-09-22 04:00] VITALS: BP 119/79
[2022-09-22] MEDS: ACETAMINOPHEN 325MG TABLET PO PRN (04:23)
[2022-09-22] MEDS ORDERED: MAGNESIUM HYDROXIDE 400MG/5ML 30ML UDC PO NR (05:30)
[2022-09-22 08:00] VITALS: BP 127/93
[2022-09-22] MEDS: FUROSEMIDE 20MG TABLET PO SCH (10:00)
[2022-09-22] MEDS: CARVEDILOL 12.5MG TABLET PO SCH (10:00)
[2022-09-22] MEDS: ASPIRIN 81MG TABLET PO SCH (10:00)
[2022-09-22 12:00] VITALS: BP 108/72
[2022-09-22 12:01] LABS: HEMATOCRIT. 35.2 % (42.0-52.0); MEAN CORPUSCULAR HEMOGLOBIN 23.7 pg (28.0-32.0); MEAN CORPUSCULAR VOLUME 76.1 fL (80.0-94.0); MEAN PLATELET VOLUME 9.1 fl (7.4-10.4); PLATELET 237 x1000/uL (130-400); RED BLOOD CELL COUNT 4.62 mill/uL (4.7-6.1)
[2022-09-22 12:20] LABS: CHLORIDE 101 mEq/L (98-107)
[2022-09-22 22:38] LABS: NUCLEATED RED BLOOD CELLS 1 /100 WBC; PLATELET ESTIMATE NORMAL
== END 2022-09-22 15:30 | disposition home or self-care (01) | DRG 291 ==
LOC: ER 00:04 → EDBEDREQ 03:06 → 7WST 08:43 → 6EST 09-20 10:09
PROVIDERS: ADMIT Internal Medicine; ATTEND Internal Medicine
DX: I11.0 Hypertensive heart disease with heart failure (principal); I50.23 Acute on chronic systolic (congestive) heart failure; I48.20 Chronic atrial fibrillation, unspecified; I31.39 Other pericardial effusion (noninflammatory); I47.20 Ventricular tachycardia, unspecified; I42.0 Dilated cardiomyopathy; D64.9 Anemia, unspecified; K21.9 Gastro-esophageal reflux disease without esophagitis; F12.10 Cannabis abuse, uncomplicated; I27.20 Pulmonary hypertension, unspecified; E78.5 Hyperlipidemia, unspecified; I36.1 Nonrheumatic tricuspid (valve) insufficiency; I34.0 Nonrheumatic mitral (valve) insufficiency; F14.10 Cocaine abuse, uncomplicated; Z76.5 Malingerer [conscious simulation]; Z95.810 Presence of automatic (implantable) cardiac defibrillator; Z79.01 Long term (current) use of anticoagulants; I25.2 Old myocardial infarction; Z91.199 Patient's noncompliance with other medical treatment and regimen due to unspecified reason; Z86.73 Personal history of transient ischemic attack (TIA), and cerebral infarction without residual deficits; Z82.49 Family history of ischemic heart disease and other diseases of the circulatory system
CPT/HCPCS: 36415; 71045; 80048; 80053; 83735; 83880; 84484; 85025; 86803; 87340; 93005; 99285; J1940; J2060; J2270; J2405

== ENCOUNTER 2022-09-22 22:38 | Emergency (ER) | payer BC, MEDICAID ==
[~2022-09-22] VITALS: Ht 177.8 cm; Wt 79.0 kg
[2022-09-22] MEDS ORDERED: ASPIRIN 325MG TABLET PO ONE (23:00)
[2022-09-22 23:19] LABS: CHLORIDE 103 mEq/L (98-107)
[2022-09-22 23:20] LABS: BASOPHILS % 0.5 % (0.0-2.0); EOSINOPHILS % 0.7 % (0.0-5.0); HEMATOCRIT. 38.1 % (42.0-52.0); HEMOGLOBIN. 11.4 g/dL (14.0-18.0); LYMPHOCYTES % 11.5 % (20.0-50.0); MEAN CORPUSCULAR HEMOGLOBIN 23.1 pg (28.0-32.0); MEAN CORPUSCULAR VOLUME 77.3 fL (80.0-94.0); MONOCYTES % 13.2 % (2.0-8.0); NEUTROPHILS % 74.1 % (40.0-76.0); PLATELET 256 x1000/uL (130-400); RED BLOOD CELL COUNT 4.92 mill/uL (4.7-6.1); RED CELL DISTRIBUTION WIDTH 23.5 % (11.6-14.6)
[2022-09-22 23:21] LABS: INR 1.2; PROTHROMBIN TIME 12.4 sec (9.6-11.0)
[2022-09-22 23:28] LABS: ETHANOL BLOOD < 10 mg/dL
[2022-09-22] MEDS ORDERED: MORPHINE SULFATE 4 MG/ML CPJ (NOT FOR IM USE) IV ONE (23:45)
[2022-09-22] MEDS ORDERED: ONDANSETRON HCL 4MG/2ML INJ IV ONE (23:45)
[2022-09-23 04:54] LABS: *AMPHETAMINES SCREEN URINE NEGATIVE (NEGATIVE); *BARBITURATES SCREEN URINE NEGATIVE (NEGATIVE); *BENZODIAZEPINES SCREEN URINE NEGATIVE (NEGATIVE); *COCAINE SCREEN URINE NEGATIVE (NEGATIVE); CANNABINOID URINE SCREEN PRESUMTIVE POSITIVE (NEGATIVE); METHADONE URINE SCREEN NEGATIVE (NEGATIVE); OPIATES URINE SCREEN PRESUMTIVE POSITIVE (NEGATIVE); PHENCYCLIDINE URINE SCREEN NEGATIVE (NEGATIVE)
[2022-09-23] MEDS ORDERED: MORPHINE SULFATE 4 MG/ML CPJ (NOT FOR IM USE) IV ONE (05:15)
[2022-09-23 05:46] VITALS: BP 105/72
== END 2022-09-23 05:58 | disposition short-term general hospital (02) ==
LOC: ER 22:38
DX: R07.89 Other chest pain (principal); I48.91 Unspecified atrial fibrillation; I10 Essential (primary) hypertension; Z86.73 Personal history of transient ischemic attack (TIA), and cerebral infarction without residual deficits; Z20.822 Contact with and (suspected) exposure to COVID-19
CPT/HCPCS: 36415; 71045; 80053; 80305; 80320; 83880; 84484; 85025; 85610; 85730; 87426; 93005; 96374; 96375; 96376; 99285; C9803; J2270; J2405; G0480

== ENCOUNTER 2022-09-28 23:46 | Emergency (ER) | payer BC, MEDICAID ==
[~2022-09-28] VITALS: Ht 177.8 cm; Wt 70.0 kg
[2022-09-29] MEDS ORDERED: NITROGLYCERIN 0.4MG TABLET SL SL PRN (00:45)
[2022-09-29 01:12] LABS: BASOPHILS % 1.2 % (0.0-2.0); EOSINOPHILS % 2.4 % (0.0-5.0); HEMATOCRIT. 35.2 % (42.0-52.0); HEMOGLOBIN. 10.6 g/dL (14.0-18.0); LYMPHOCYTES % 13.1 % (20.0-50.0); MEAN CORPUSCULAR HEMOGLOBIN 23.5 pg (28.0-32.0); MEAN CORPUSCULAR VOLUME 77.8 fL (80.0-94.0); MEAN PLATELET VOLUME 8.6 fl (7.4-10.4); MONOCYTES % 10.7 % (2.0-8.0); NEUTROPHILS % 72.6 % (40.0-76.0); PLATELET 232 x1000/uL (130-400); RED BLOOD CELL COUNT 4.53 mill/uL (4.7-6.1); RED CELL DISTRIBUTION WIDTH 23.9 % (11.6-14.6)
[2022-09-29 01:21] LABS: CHLORIDE 114 mEq/L (98-107)
[2022-09-29] MEDS ORDERED: HYDROCODONE/ACETAMINOPHEN 10/325MG TABLET PO PRN (04:15)
[2022-09-29 04:17] VITALS: BP 142/84
== END 2022-09-29 08:32 | disposition home or self-care (01) ==
LOC: ER 23:52 → MICUSO 09-29 02:23 → UNDOADMIN 09-29 02:23 → EDBEDREQTM 09-29 02:26 → EDBEDREQ 09-29 02:26 → UNDODISIN 09-29 08:34
DX: R07.89 Other chest pain (principal); F12.10 Cannabis abuse, uncomplicated
CPT/HCPCS: 36415; 71045; 80053; 83880; 84484; 85025; 93005; 99285

== ENCOUNTER 2022-10-01 02:44 | Inpatient (IN) | payer BC, MEDICAID ==
[~2022-10-01] VITALS: Ht 188 cm; Wt 75.3 kg
[2022-10-01 04:11] LABS: BASOPHILS % 1.9 % (0.0-2.0); HEMATOCRIT. 33.3 % (42.0-52.0); HEMOGLOBIN. 10.2 g/dL (14.0-18.0); LYMPHOCYTES % 11.5 % (20.0-50.0); MEAN CORPUSCULAR VOLUME 77.8 fL (80.0-94.0); MEAN PLATELET VOLUME 8.6 fl (7.4-10.4); MONOCYTES % 13.8 % (2.0-8.0); NEUTROPHILS % 69.8 % (40.0-76.0); PLATELET 230 x1000/uL (130-400); RED BLOOD CELL COUNT 4.27 mill/uL (4.7-6.1); RED CELL DISTRIBUTION WIDTH 24.5 % (11.6-14.6)
[2022-10-01 04:33] LABS: CHLORIDE 111 mEq/L (98-107)
[2022-10-01 04:44] LABS: ETHANOL BLOOD < 10 mg/dL (-10)
[2022-10-01 09:05] LABS: CLARITY URINE CLEAR (CLEAR); COLOR URINE DARK YELLOW (YELLOW); KETONES URINE TRACE (NEGATIVE); LEUKOCYTE ESTERASE URINE TRACE (NEGATIVE); NITRITE URINE NEGATIVE (NEGATIVE); OCCULT BLOOD URINE NEGATIVE (NEGATIVE); PROTEIN URINE 3+ (NEGATIVE); SPECIFIC GRAVITY URINE 1.035 (1.005-1.030)
[2022-10-01] MEDS ORDERED: ASPIRIN 325MG EC TABLET PO ONE (09:15)
[2022-10-01 09:18] LABS: *AMPHETAMINES SCREEN URINE NEGATIVE (NEGATIVE); *BARBITURATES SCREEN URINE NEGATIVE (NEGATIVE); *BENZODIAZEPINES SCREEN URINE NEGATIVE (NEGATIVE); *COCAINE SCREEN URINE NEGATIVE (NEGATIVE); CANNABINOID URINE SCREEN PRESUMTIVE POSITIVE (NEGATIVE); METHADONE URINE SCREEN NEGATIVE (NEGATIVE); OPIATES URINE SCREEN PRESUMTIVE POSITIVE (NEGATIVE); PHENCYCLIDINE URINE SCREEN NEGATIVE (NEGATIVE)
[2022-10-01] MEDS ORDERED: MORPHINE SULFATE 2 MG/ML CPJ (NOT FOR IM USE) IV ONE (09:45)
[2022-10-01 18:15] VITALS: BP 147/68
[2022-10-01 20:00] VITALS: BP 111/77
[2022-10-01] MEDS ORDERED: HYDR-4135 PO (21:24)
[2022-10-01] MEDS ORDERED: ISOS10TA2 PO (21:25)
[2022-10-01] MEDS ORDERED: FERR325T6 PO (21:27)
[2022-10-01] MEDS ORDERED: FURO40TA5 PO (21:28)
[2022-10-01] MEDS ORDERED: FAMO20TA8 PO (21:28)
[2022-10-01] MEDS ORDERED: COR6 PO (21:29)
[2022-10-01] MEDS ORDERED: LISI2.5T47 PO (21:29)
[2022-10-01] MEDS ORDERED: FINA5TAB11 PO (21:30)
[2022-10-01] MEDS ORDERED: CARVEDILOL 3.125 MG TABLET PO NR (21:30)
[2022-10-01] MEDS ORDERED: ATOR-2 PO (21:30)
[2022-10-01] MEDS ORDERED: NITROGLYCERIN 0.4MG TABLET SL SL PRN (21:30)
[2022-10-01] MEDS ORDERED: MORPHINE SULFATE 2 MG/ML CPJ (NOT FOR IM USE) IV NR (21:30)
[2022-10-01] MEDS ORDERED: NALOXONE HCL 0.4MG/ML VIAL IV PRN (21:30)
[2022-10-01] MEDS ORDERED: TAMS-11 PO (21:31)
[2022-10-01] MEDS ORDERED: GABA-529 PO (21:34)
[2022-10-01] MEDS ORDERED: ESCI-7 PO (21:38)
[2022-10-01] MEDS ORDERED: SPIR25TA6 PO (21:39)
[2022-10-02] VITALS (7 sets, daily range): BP systolic 109–129; BP diastolic 69–95
[2022-10-02] MEDS: FUROSEMIDE 40MG TABLET PO SCH ×2 (07:10→17:34)
[2022-10-02] MEDS: LOSARTAN POTASSIUM 50 MG TABLET PO SCH (09:28)
[2022-10-02] MEDS: APIXABAN 5 MG TABLET PO SCH ×2 (09:29→16:24)
[2022-10-02] MEDS: ASPIRIN 81MG EC TABLET PO SCH (09:29)
[2022-10-02] MEDS: CARVEDILOL 3.125 MG TABLET PO SCH ×2 (09:29→20:40)
[2022-10-02] MEDS ORDERED: MORPHINE SULFATE 2 MG/ML CPJ (NOT FOR IM USE) IV PRN (13:15)
[2022-10-03] VITALS: BP 110/86
[2022-10-03 04:00] VITALS: BP 118/84
[2022-10-03] MEDS: FUROSEMIDE 40MG TABLET PO SCH (06:17)
[2022-10-03 08:00] VITALS: BP 132/92
[2022-10-03] MEDS: LOSARTAN POTASSIUM 50 MG TABLET PO SCH (09:00)
[2022-10-03] MEDS: APIXABAN 5 MG TABLET PO SCH (09:00)
[2022-10-03] MEDS: ASPIRIN 81MG EC TABLET PO SCH (09:00)
[2022-10-03] MEDS: CARVEDILOL 3.125 MG TABLET PO SCH ×2 (09:00→21:11)
[2022-10-03] MEDS: HYDROCODONE/ACETAMINOPHEN 10/325MG TABLET PO PRN ×2 (09:38→21:12)
[2022-10-03 12:00] VITALS: BP 123/87
[2022-10-03 16:00] VITALS: BP 133/90
[2022-10-03 20:00] VITALS: BP 122/90
[2022-10-04] VITALS: BP 128/79
[2022-10-04] MEDS ORDERED: MAGNESIUM HYDROXIDE 400MG/5ML 30ML UDC PO NR (03:45)
[2022-10-04 04:00] VITALS: BP 134/75
[2022-10-04] MEDS: FUROSEMIDE 40MG TABLET PO SCH ×3 (07:15→17:50)
[2022-10-04 08:00] VITALS: BP 136/91
[2022-10-04] MEDS: APIXABAN 5 MG TABLET PO SCH ×3 (09:00→17:50)
[2022-10-04] MEDS: HYDROCODONE/ACETAMINOPHEN 10/325MG TABLET PO PRN (09:13)
[2022-10-04] MEDS: ASPIRIN 81MG EC TABLET PO SCH (09:14)
[2022-10-04] MEDS: LOSARTAN POTASSIUM 50 MG TABLET PO SCH (09:14)
[2022-10-04] MEDS: CARVEDILOL 3.125 MG TABLET PO SCH ×2 (09:23→21:24)
[2022-10-04 12:00] VITALS: BP 126/96
[2022-10-04 20:00] VITALS: BP 132/98
[2022-10-05] VITALS (7 sets, daily range): BP systolic 116–140; BP diastolic 70–99
[2022-10-05] MEDS: FUROSEMIDE 40MG TABLET PO SCH ×2 (06:38→17:20)
[2022-10-05] MEDS: LOSARTAN POTASSIUM 50 MG TABLET PO SCH (10:27)
[2022-10-05] MEDS: CARVEDILOL 3.125 MG TABLET PO SCH ×2 (10:27→22:10)
[2022-10-05] MEDS: ASPIRIN 81MG EC TABLET PO SCH (10:27)
[2022-10-05] MEDS: APIXABAN 5 MG TABLET PO SCH ×2 (10:27→17:21)
[2022-10-05] MEDS: HYDROCODONE/ACETAMINOPHEN 10/325MG TABLET PO PRN (22:11)
[2022-10-06] VITALS: BP 125/62
[2022-10-06 04:00] VITALS: BP 131/99
[2022-10-06] MEDS: FUROSEMIDE 40MG TABLET PO SCH (06:01)
[2022-10-06 08:00] VITALS: BP 118/90
[2022-10-06] MEDS: APIXABAN 5 MG TABLET PO SCH (08:55)
[2022-10-06] MEDS: ASPIRIN 81MG EC TABLET PO SCH (08:56)
[2022-10-06] MEDS: LOSARTAN POTASSIUM 50 MG TABLET PO SCH (08:56)
[2022-10-06] MEDS ORDERED: CARVEDILOL 6.25 MG TABLET PO SCH (09:00)
[2022-10-06 12:00] VITALS: BP 121/93
[2022-10-06 12:19] VITALS: BP 118/90
[2022-10-06] MEDS: HYDROCODONE/ACETAMINOPHEN 10/325MG TABLET PO PRN (12:19)
[2022-10-06] MEDS ORDERED: FUROSEMIDE 40MG TABLET PO SCH (17:15)
== END 2022-10-06 13:30 | disposition home or self-care (01) | DRG 205 ==
LOC: ER 03:02 → 7EST 17:15 → 8WST 10-04 17:09
PROVIDERS: ADMIT Internal Medicine; ATTEND Internal Medicine
DX: S22.32XA Fracture of one rib, left side, initial encounter for closed fracture (principal); I50.23 Acute on chronic systolic (congestive) heart failure; I48.20 Chronic atrial fibrillation, unspecified; I24.9 Acute ischemic heart disease, unspecified; I42.0 Dilated cardiomyopathy; I31.39 Other pericardial effusion (noninflammatory); I11.0 Hypertensive heart disease with heart failure; I25.10 Atherosclerotic heart disease of native coronary artery without angina pectoris; I25.5 Ischemic cardiomyopathy; I34.0 Nonrheumatic mitral (valve) insufficiency; E78.5 Hyperlipidemia, unspecified; R04.0 Epistaxis; Z95.810 Presence of automatic (implantable) cardiac defibrillator; Z86.73 Personal history of transient ischemic attack (TIA), and cerebral infarction without residual deficits; Z82.49 Family history of ischemic heart disease and other diseases of the circulatory system; Z79.01 Long term (current) use of anticoagulants; Z79.899 Other long term (current) drug therapy; W18.11XA Fall from or off toilet without subsequent striking against object, initial encounter; Y93.89 Activity, other specified; Y92.89 Other specified places as the place of occurrence of the external cause; Y99.8 Other external cause status
CPT/HCPCS: 36415; 71101; 73030; 73060; 73080; 80053; 80305; 80320; 81003; 83880; 84484; 85025; 93005; 93306; 97162; 99285; J2270; G0480

== ENCOUNTER 2024-08-06 16:15 | Inpatient (IN) | payer MEDICARE, MEDICAID ==
[~2024-08-06] VITALS: Ht 172.7 cm; Wt 72.1 kg
[~2024-08-06 16:15] MED LIST changes: -APIX5TAB MT; +ATOR-2 PO; -COR3 PO; +COR6 PO; -DOCU-138 PO; +ESCI-7 PO; +FAMO20TA8 PO; +FINA5TAB11 PO; -FURO40TA5 PO; +GABA-529 PO; -HYDR-4134 MT; +LISI2.5T47 PO; -LOSA25TA3 PO; -OMEP20TA23 PO; -ONDA4TAB5 MT; +PANT40TA51 PO; -POTA-205 MT; +SPIR25TA6 PO; +SUCR1TAB30 PO; +TAMS-54 PO; -TOPUD PO; -TRAM-529 MT
[2024-08-06 16:53] LABS: BASOPHILS % 1.3 % (0.0-2.0); DIFFERENTIAL COMMENT 0; EOSINOPHILS % 1.6 % (0.0-5.0); HEMATOCRIT. 28.1 % (42.0-52.0); HEMOGLOBIN. 8.1 g/dL (14.0-18.0); LYMPHOCYTES % 24.8 % (20.0-50.0); MEAN CORPUSCULAR HEMOGLOBIN 21.5 pg (28.0-32.0); MEAN CORPUSCULAR HGB CONC 28.7 g/dL (31.0-37.0); MEAN CORPUSCULAR VOLUME 74.9 fL (80.0-94.0); MEAN PLATELET VOLUME 8.6 fl (7.4-10.4); MONOCYTES % 14.8 % (2.0-8.0); NEUTROPHILS % 57.5 % (40.0-76.0); PLATELET 228 x1000/uL (130-400); RED BLOOD CELL COUNT 3.75 mill/uL (4.7-6.1); RED CELL DISTRIBUTION WIDTH 19.9 % (11.6-14.6); WHITE BLOOD COUNT 3.2 x1000/uL (4.5-11.0)
[2024-08-06 16:58] LABS: CHLORIDE 114 mEq/L (98-107); POTASSIUM 4.1 mEq/L (3.5-5.1); SODIUM 144 mEq/L (136-145)
[2024-08-06 16:59] LABS: CARBON DIOXIDE 22 mEq/L (21-32)
[2024-08-06 17:00] LABS: CALCIUM 9.1 mg/dL (8.7-10.4)
[2024-08-06 17:04] LABS: CREATININE 1.1 mg/dL (0.6-1.3)
[2024-08-06 17:05] LABS: GLUCOSE 78 mg/dL (70-105); UREA NITROGEN BLOOD 14 mg/dL (9-23)
[2024-08-06 17:06] LABS: TROPONIN I HIGH SENSITIVITY 33 ng/L (3.0-53)
[2024-08-06 17:07] LABS: INR 1.3; PROTHROMBIN TIME 13.9 sec (9.6-11.0)
[2024-08-06] MEDS: MORPHINE SULFATE 4 MG/ML INJ (FOR IV/IM USE) IV STA (17:08)
[2024-08-06 18:58] LABS: TROPONIN I HIGH SENSITIVITY 31 ng/L (3.0-53)
[2024-08-06] MEDS: MORPHINE SULFATE 2 MG/ML INJ (NOT FOR IM USE) IV ONE (20:35)
[2024-08-06 21:00] VITALS: BP 103/76; PULSE 78; RESP 18; TEMP 36.5
[2024-08-06] MEDS ORDERED: CARVEDILOL 6.25 MG TABLET PO SCH (21:00)
[2024-08-06] MEDS ORDERED: IPRATROPIUM/ALBUTEROL 0.5-3(2.5)MG/3ML NEB HHN PRN (21:00)
[2024-08-06] MEDS ORDERED: ACETAMINOPHEN 325MG TABLET PO PRN (21:00)
[2024-08-06] MEDS ORDERED: GUAIFENESIN 200MG/10ML SUGAR FREE UDC PO PRN (21:00)
[2024-08-06] MEDS ORDERED: ONDANSETRON HCL 4MG/2ML INJ IV PRN (21:00)
[2024-08-06] MEDS ORDERED: MAGNESIUM/ALUMINUM HYDROXIDE/SIMETHICONE 30ML UDC PO PRN (21:00)
[2024-08-06] MEDS ORDERED: DOCUSATE SODIUM 100MG CAPSULE PO PRN (21:00)
[2024-08-06 22:00] VITALS: BP 104/76; PULSE 78; RESP 18; TEMP 36.4; O2SAT 99
[2024-08-07] VITALS: BP 114/94; PULSE 70; RESP 18; TEMP 36.1; O2SAT 100
[2024-08-07] MEDS: GABAPENTIN 100MG CAPSULE PO SCH (00:21)
[2024-08-07] MEDS: FAMOTIDINE 20MG TABLET PO SCH (00:22)
[2024-08-07] MEDS: ATORVASTATIN CALCIUM 40MG TABLET PO SCH (00:23)
[2024-08-07] MEDS: TRAMADOL 50MG TABLET PO PRN (00:25)
[2024-08-07 04:00] VITALS: BP 103/68; PULSE 55; RESP 16; TEMP 36.7; O2SAT 98
[2024-08-07 08:00] VITALS: BP 111/82; PULSE 58; RESP 18; TEMP 36.2; O2SAT 97
[2024-08-07 08:04] LABS: HEMATOCRIT. 30.3 % (42.0-52.0); HEMOGLOBIN. 8.3 g/dL (14.0-18.0); MEAN CORPUSCULAR HGB CONC 27.4 g/dL (31.0-37.0); MEAN CORPUSCULAR VOLUME 76.7 fL (80.0-94.0); MEAN PLATELET VOLUME 9.1 fl (7.4-10.4); PLATELET 224 x1000/uL (130-400); RED BLOOD CELL COUNT 3.95 mill/uL (4.7-6.1); RED CELL DISTRIBUTION WIDTH 20.2 % (11.6-14.6)
[2024-08-07 08:35] LABS: DIFFERENTIAL COMMENT 1
[2024-08-07] MEDS: CARVEDILOL 6.25 MG TABLET PO SCH (09:00)
[2024-08-07] MEDS: TAMSULOSIN HCL 0.4MG SR CAPSULE PO SCH (09:00)
[2024-08-07] MEDS: SPIRONOLACTONE 25MG TABLET PO SCH (09:00)
[2024-08-07] MEDS: LISINOPRIL 5MG TABLET PO SCH (09:00)
[2024-08-07] MEDS: ASPIRIN 81MG EC TABLET PO SCH (09:19)
[2024-08-07] MEDS: FINASTERIDE 5MG TABLET PO SCH (09:19)
[2024-08-07 12:00] VITALS: BP 103/73; PULSE 63; RESP 18; TEMP 36.3; O2SAT 97
[2024-08-07 16:00] VITALS: BP 120/79; PULSE 75; RESP 18; TEMP 36.3; O2SAT 98
[2024-08-07] MEDS: NITROGLYCERIN 0.4MG TABLET SL SL PRN (18:13)
[2024-08-07 20:00] VITALS: BP 117/76; PULSE 63; RESP 18; TEMP 36.3; O2SAT 98
[2024-08-07] MEDS: ACETAMINOPHEN 325MG TABLET PO PRN (20:21)
[2024-08-07 20:34] LABS: ANISOCYTOSIS 1+; HYPOCHROMASIA 2+; MICROCYTOSIS 1+; PLATELET ESTIMATE NORMAL
[2024-08-07] MEDS: FUROSEMIDE 20MG TABLET PO SCH (20:51)
[2024-08-07] MEDS: CARVEDILOL 3.125 MG TABLET PO SCH (20:52)
[2024-08-08] VITALS: BP 107/74; PULSE 18; RESP 18; TEMP 36.4; O2SAT 100
[2024-08-08 04:00] VITALS: BP 118/71; PULSE 66; RESP 18; TEMP 35.7; O2SAT 98
[2024-08-08] MEDS: PANTOPRAZOLE 40MG DR TABLET PO SCH (06:58)
[2024-08-08 07:05] LABS: CHLORIDE 110 mEq/L (98-107); POTASSIUM 4.4 mEq/L (3.5-5.1); SODIUM 143 mEq/L (136-145)
[2024-08-08 07:06] LABS: BASOPHILS % 1.2 % (0.0-2.0); CALCIUM 8.6 mg/dL (8.7-10.4); CARBON DIOXIDE 25 mEq/L (21-32); DIFFERENTIAL COMMENT 0; EOSINOPHILS % 2.3 % (0.0-5.0); HEMATOCRIT. 28.3 % (42.0-52.0); LYMPHOCYTES % 17.9 % (20.0-50.0); MEAN CORPUSCULAR HEMOGLOBIN 21.1 pg (28.0-32.0); MEAN CORPUSCULAR HGB CONC 28.4 g/dL (31.0-37.0); MEAN CORPUSCULAR VOLUME 74.4 fL (80.0-94.0); MEAN PLATELET VOLUME 8.7 fl (7.4-10.4); MONOCYTES % 14.7 % (2.0-8.0); NEUTROPHILS % 63.9 % (40.0-76.0); PLATELET 196 x1000/uL (130-400); RED BLOOD CELL COUNT 3.81 mill/uL (4.7-6.1); RED CELL DISTRIBUTION WIDTH 19.7 % (11.6-14.6)
[2024-08-08 07:11] LABS: CREATININE 1.1 mg/dL (0.6-1.3); GLUCOSE 75 mg/dL (70-105); UREA NITROGEN BLOOD 13 mg/dL (9-23)
[2024-08-08 08:00] VITALS: BP_SYST 104; BP_SYST 115; BP_DIAS 70; BP_DIAS 74; PULSE 74; PULSE 86; RESP 18; TEMP 36.1; TEMP 36.3; O2SAT 96; O2SAT 97
[2024-08-08 14:30] VITALS: BP 103/75; PULSE 84; TEMP 97.3; O2SAT 100
[2024-08-08 16:00] VITALS: BP 103/75; PULSE 84; RESP 18; TEMP 36.3; O2SAT 100
[2024-08-08 20:00] VITALS: BP 104/74; PULSE 86; RESP 18; TEMP 36.3; O2SAT 97
[2024-08-09] VITALS: BP 113/72; PULSE 95; RESP 17; TEMP 36.4; O2SAT 100
[2024-08-09 05:32] VITALS: BP 98/61; PULSE 66; RESP 18; TEMP 37.3; O2SAT 97
[2024-08-09 09:00] VITALS: PULSE 83
[2024-08-17] MEDS ORDERED: EMPA10TA PO (07:15)
== END 2024-08-09 13:10 | DRG 291 ==
LOC: ER 16:15 → 5WST 20:00 → EDBEDREQ 20:02 → 7EST 08-09 01:23
PROVIDERS: ADMIT Internal Medicine; ATTEND Internal Medicine
DX: I13.0 Hypertensive heart and chronic kidney disease with heart failure and stage 1 through stage 4 chronic kidney disease, or unspecified chronic kidney disease (principal); I50.23 Acute on chronic systolic (congestive) heart failure; K92.1 Melena; N17.9 Acute kidney failure, unspecified; R07.89 Other chest pain; I42.0 Dilated cardiomyopathy; I48.91 Unspecified atrial fibrillation; D50.9 Iron deficiency anemia, unspecified; K44.9 Diaphragmatic hernia without obstruction or gangrene; K29.70 Gastritis, unspecified, without bleeding; N18.30 Chronic kidney disease, stage 3 unspecified; J44.9 Chronic obstructive pulmonary disease, unspecified; N40.0 Benign prostatic hyperplasia without lower urinary tract symptoms; F20.9 Schizophrenia, unspecified; E78.5 Hyperlipidemia, unspecified; I25.10 Atherosclerotic heart disease of native coronary artery without angina pectoris; Z95.810 Presence of automatic (implantable) cardiac defibrillator; Z79.01 Long term (current) use of anticoagulants; Z79.82 Long term (current) use of aspirin; Z79.899 Other long term (current) drug therapy; Z82.49 Family history of ischemic heart disease and other diseases of the circulatory system; Z87.891 Personal history of nicotine dependence; I69.30 Unspecified sequelae of cerebral infarction
CPT/HCPCS: 36415; 71045; 80048; 83735; 83880; 84484; 85025; 93005; 93970; 99285; J2270